=== PATIENT | male | born 1940 | race Caucasian/White ===

== ENCOUNTER 2018-05-15 09:54 | Emergency (ER) | payer MEDICARE, SELFPAY ==
[2018-05-15 10:00] VITALS: BP 169/78; PULSE 80; RESP 18; TEMP 36.7; O2SAT 99
--- NOTE | 2018-05-15 10:12 | ED.ABDPAIN ---
HPI - Abdominal Pain General Chief Complaint: Abdominal Pain Stated Complaint: hasnt had a bowel movement Time Seen by Provider: 05/15/18 10:03 Source: patient Mode of arrival: ambulatory Limitations: no limitations History of Present Illness HPI narrative: Patient is a 77-year-old male presents with abdominal pain and constipation ongoing for the last 3 days. He said he had a last bowel movement 3 days ago when he says it was normal. Since then he has had increased abdominal discomfort and bloating. He feels like he is has to have a bowel movement but can't. He typically takes a laxative which helps which it has not been helping. He has not had any nausea vomiting or fever. MD complaint: abdominal pain Onset (ago): day(s) (3) Severity: moderate Quality: fullness Migration to: no migration Relieving factors: nothing Exacerbating factors: nothing Related Data Home Medications Medication Instructions Recorded Confirmed No Known Home Medications 05/15/18 05/15/18 Allergies Allergy/AdvReac Type Severity Reaction Status Date / Time No Known Drug Allergies Allergy Verified 05/15/18 10:15 Review of Systems Review of Systems GENERAL: Denies chills, fatigue, malaise, fever, sweats, travel HEENT: Denies sinus pain, ear pain, sore throat, difficulty swallowing, neck pain RESPIRATORY: Denies dyspnea, cough, wheezing, hemoptysis, sputum. CARDIOVASCULAR: Denies chest pain, palpitations, orthopnea, edema GASTROINTESTINAL: See HPI : Denies dysuria, frequency, incontinence, hematuria, urinary retention, flank pain. MUSCULOSKELETAL: Denies weakness, joint pain, or bony pain SKIN: No rash, no erythema, no pruritus NEUROLOGIC: Denies weakness, dizziness, headache, numbness, change in speech, confusion PSYCHIATRIC: No concerning psychosocial issues. 12 point review of systems is negative except for those stated above and HPI PFSH Medical History Chronic pain syndrome (Chronic Unknown) Shoulder pain, left (Chronic Unknown) Social History Smoking Status: Never smoker Social History Smoking Status: Never smoker Exam Initial Vital Signs Initial Vital Signs: Vital Signs Temperature 98.1 F 05/15/18 10:00 Pulse Rate 80 05/15/18 10:00 Respiratory Rate 18 05/15/18 10:00 Blood Pressure 169/78 H 05/15/18 10:00 Pulse Oximetry 99 05/15/18 10:00 GENERAL: Alert well-appearing elderly male no acute distress HEENT: Head atraumatic,EOMI, pupils reactive, CARDIOVASCULAR: Regular rate and rhythm without murmurs, rubs or gallops. RESPIRATORY: Breath sounds equal bilaterally, no wheezes rales or rhonchi. ABDOMEN: Soft tenderness lower abdomen right greater than the last no guarding no rebound bowel sounds mode : No CVA tenderness EXTREMITIES: Normal range of motion, no clubbing or edema. Neurovascularly intact NEUROLOGICAL: Alert and oriented x4.Normal gait and speech. Cranial nerves II through XII grossly intact. SKIN: Warm, dry, no laceration, no petechiae, no rashes or lesions. Course Orders Ordered: ED Orders 05/15/18 10:13 CT abdomen pelvis w con Stat 05/15/18 10:25 Complete Blood Count AUTO DIFF Stat Comprehensive Metabolic Panel Stat Lipase Stat Discontinued Medications Sodium Chloride (Normal Saline 0.9%) 1,000 mls @ 1,000 mls/hr IV CONT OPAL Last Infusion: 05/15/18 12:06 Dose: 999 mls/hr Admin: 05/15/18 11:06 Dose: 1,000 mls/hr Vital Signs - 8 hr 05/15/18 10:00 05/15/18 11:26 Temperature 98.1 F Pulse Rate 80 58 L Respiratory Rate 18 18 Blood Pressure 169/78 H Blood Pressure [Left Arm] 153/71 H Pulse Oximetry 99 96 MDM - Abdominal Pain Lab Data Attestation: I reviewed the patient's lab results. Result diagrams: 05/15/18 10:25 05/15/18 10:25 Lab Results 05/15/18 05/15/18 Range/Units 10:25 10:25 WBC 5.5 (4.5-11.0) X10^3/uL RBC 4.90 (4.5-5.9) X10^6/uL Hgb 15.2 (13.5-17.5) g/dL Hct 45.6 (41-53) % MCV 93.2 (80-100) fL MCH 31.1 (26-34) PG MCHC 33.4 (30-36) % RDW 14.3 (11.6-14.8) % Plt Count 218 (150-400) X10^3/uL Neut % (Auto) 53.1 (50-75) % Lymph % (Auto) 33.4 (25-40) % [place] % (Auto) 10.2 (3-14) % Eos % (Auto) 2.5 (2-4) % Baso % (Auto) 0.8 (0-2) % Neut # (Auto) 2900 (2336-9269) /uL Lymph # (Auto) 1800 (3979-1309) /uL [place] # (Auto) 600 (0-900) /uL Eos # (Auto) 100 (0-450) /uL Baso # (Auto) 0 (0-100) /uL Sodium 139 (137-145) mmol/L Potassium 3.9 (3.4-5.1) mmol/L Chloride 104 (98-107) mmol/L Carbon Dioxide 25 (22-32) mmol/L BUN 17 (9-20) mg/dL Creatinine 0.80 (0.66-1.25) mg/dL Estimated GFR > 60.0 (>60) mL/min BUN/Creatinine Ratio 21.3 (6-22) Glucose 108 (80-110) mg/dL Calcium 9.1 (8.4-10.2) mg/dL Total Bilirubin 0.8 (0.2-1.3) mg/dL AST 29 (17-59) IU/L ALT 27 (21-72) IU/L Alkaline Phosphatase 68 (38-126) U/L Total Protein 6.9 (6.3-8.2) g/dL Albumin 4.2 (3.5-5.0) g/dL Globulin 2.7 (1.7-4.1) g/dL Albumin/Globulin Ratio 1.6 (1.0-2.8) Lipase 99 (23-300) U/L Point of care testing: Urine Dip Bedside Urine Glucose Negative Bedside Urine Bilirubin - Negative Bedside Urine Ketone - Negative Urine Specific [place] 1.015 Bedside Urine Occult Blood - Negative Bedside Urine pH 6.5 Bedside Urine Protein - Negative Bedside Urine Urobilinogen - Negative Bedside Urine Nitrite - Negative Bedside Urine Leukocytes - Negative Esterase Imaging Data CT scan - abdomen: Radiologist's impression: PROCEDURE: CT ABDOMEN PELVIS W CON INDICATIONS: abdominal pain right side, constipation TECHNIQUE: After the administration of intravenous contrast, 5 mm thick sections acquired from the diaphragm to the symphysis. 5 mm coronal and sagittal reformats were acquired. For radiation dose reduction, the following was used: automated exposure control, adjustment of mA and/or kV according to patient size. COMPARISON: None. FINDINGS: Image quality: Excellent. ABDOMEN: Lung bases: Lung bases are clear. Heart size is normal. Solid organs: Liver is normal in size and enhancement. Calcification within the right hepatic dome is present. Lateral segment left hepatic lobe cyst is present measuring 17 mm. Gallbladder is within normal limits. Biliary system is non dilated. Pancreas enhances normally. Spleen is normal in size and enhancement. No adrenal nodules. Kidneys demonstrate normal size and enhancement, without hydronephrosis. Peritoneum and bowel: The bowel is suboptimally evaluated secondary to lack of oral contrast. The stomach is within normal limits. The small bowel is nondistended. Within the right lower quadrant, there is a region of ill-defined multinodularity and mesenteric fat stranding, spanning roughly 40 mm. The lateral aspect of this region of multinodularity is in direct contact with a loop of adjacent small bowel (series 2 image 51). There is no discrete abscess normalities. The majority of the appendix appears normally. However, there is a rounded, a 13 mm diameter calcification within or adjacent to the appendiceal tip. No fat stranding surrounds the appendix, however. The colon is nondistended. Diverticulosis of the descending and sigmoid colon is present without evidence of acute superimposed diverticulitis. No free fluid or air. Nodes and vessels: No retroperitoneal or mesenteric adenopathy by size criteria. Aorta and inferior vena cava are normal in size. Miscellaneous: No ventral hernias. PELVIS: Genitourinary: There is a 44 mm diverticulum of the right posterolateral urinary bladder. There are multiple regions of nodular urinary bladder wall thickening posteriorly, as well as posterolaterally on the left than on the right. The most prominent region of urinary bladder wall thickening involves the right lateral urinary bladder wall, measuring roughly 9 mm in thickness. The prostate is enlarged. Miscellaneous: No inguinal hernias or adenopathy. Stimulator device within the subcutaneous fat of the left posterior abdomen is present. Bones: No suspicious bony lesions. Moderate leftward curvature of the lumbar spine. No vertebral body compression fractures. IMPRESSION: 1. Presumably inflammatory, or infectious process within the right lower quadrant as described above, contiguous with small bowel, which may represent small bowel diverticulitis, infection, or inflammation (e.g., Crohn's disease sequelae with associated sinus tract formation and surrounding inflammatory sequelae could produce this appearance in the appropriate clinical setting). This is the likely cause of the patient's right-sided pain. Followup imaging with intravenous and oral contrast may be helpful for further assessment, and to exclude the less likely possibility of underlying neoplasm, such as carcinoid, which can have a similar appearance. 2. Right lower quadrant calcification within or adjacent to the appendix. Differential considerations include an appendicolith versus a calcified mesenteric lymph node adjacent to the appendix. There is no evidence of surrounding inflammation to indicate acute appendicitis. 3. Multifocal regions of urinary bladder wall thickening, possibly neoplastic. Cystoscopy is recommended for further assessment. Dictated by: Darling Flannery M.D. on 05/15/2018 at 11:16 Approved by: Darling Flannery M.D. on 05/15/2018 at 11:28 [facility] Narrative Medical decision making narrative: I discussed test results including CT and blood work with patient. He is aware of multiple areas on the bladder and recommend cystoscopy in close PCP follow-up. At this time the CT does reveal inflammation in the right lower quadrant without signs of appendicitis. Patient's pain is significantly improved after some mild Toradol. Discharge Plan Departure Patient Disposition: Home Clinical Impression: Colitis Discharge Date/Time: 05/15/18 12:10 Interventions: ED Discharge Assessment Last Done: 05/15/18 12:07 Instructions: DI for Colitis Activity Restrictions/Additional Instructions: *You have been diagnosed with colitis *What to do: At this time the of inflammation in you're: On the right side. The appendix appears normal. At this time no indication for antibiotic There are some areas in bladder which require further evaluation with a urologist please talk to your primary care provider about this. *Continue to take medications as directed Ibuprofen 600 mg twice daily *Follow up with your primary care provider in 2-3 days *Return to ER if you should have increasing pain, no bowel movement, persistent vomiting or fever or any new, worsening or concerning symptoms Prescriptions: No Action No Known Home Medications RF: 0 Referrals: Romero Gregory MD [Physician] - Joshua Vincent MD [Primary Care Provider] -
--- NOTE | 2018-05-15 10:17 | ED_ITS ---
HPI - Abdominal Pain General Chief Complaint: Abdominal Pain Stated Complaint: hasnt had a bowel movement Time Seen by Provider: 05/15/18 10:03 Source: patient Mode of arrival: ambulatory Limitations: no limitations History of Present Illness HPI narrative: Patient is a 77-year-old male presents with abdominal pain and constipation ongoing for the last 3 days. He said he had a last bowel movement 3 days ago when he says it was normal. Since then he has had increased abdominal discomfort and bloating. He feels like he is has to have a bowel movement but can't. He typically takes a laxative which helps which it has not been helping. He has not had any nausea vomiting or fever. MD complaint: abdominal pain Onset (ago): day(s) (3) Severity: moderate Quality: fullness Migration to: no migration Relieving factors: nothing Exacerbating factors: nothing Related Data Home Medications Medication Instructions Recorded Confirmed No Known Home Medications 05/15/18 05/15/18 Allergies Allergy/AdvReac Type Severity Reaction Status Date / Time No Known Drug Allergies Allergy Verified 05/15/18 10:15 Review of Systems Review of Systems GENERAL: Denies chills, fatigue, malaise, fever, sweats, travel HEENT: Denies sinus pain, ear pain, sore throat, difficulty swallowing, neck pain RESPIRATORY: Denies dyspnea, cough, wheezing, hemoptysis, sputum. CARDIOVASCULAR: Denies chest pain, palpitations, orthopnea, edema GASTROINTESTINAL: See HPI : Denies dysuria, frequency, incontinence, hematuria, urinary retention, flank pain. MUSCULOSKELETAL: Denies weakness, joint pain, or bony pain SKIN: No rash, no erythema, no pruritus NEUROLOGIC: Denies weakness, dizziness, headache, numbness, change in speech, confusion PSYCHIATRIC: No concerning psychosocial issues. 12 point review of systems is negative except for those stated above and HPI PFSH Medical History Chronic pain syndrome (Chronic Unknown) Shoulder pain, left (Chronic Unknown) Social History Smoking Status: Never smoker Social History Smoking Status: Never smoker Exam Initial Vital Signs Initial Vital Signs: Vital Signs Temperature 98.1 F 05/15/18 10:00 Pulse Rate 80 05/15/18 10:00 Respiratory Rate 18 05/15/18 10:00 Blood Pressure 169/78 H 05/15/18 10:00 Pulse Oximetry 99 05/15/18 10:00 GENERAL: Alert well-appearing elderly male no acute distress HEENT: Head atraumatic,EOMI, pupils reactive, CARDIOVASCULAR: Regular rate and rhythm without murmurs, rubs or gallops. RESPIRATORY: Breath sounds equal bilaterally, no wheezes rales or rhonchi. ABDOMEN: Soft tenderness lower abdomen right greater than the last no guarding no rebound bowel sounds mode : No CVA tenderness EXTREMITIES: Normal range of motion, no clubbing or edema. Neurovascularly intact NEUROLOGICAL: Alert and oriented x4.Normal gait and speech. Cranial nerves II through XII grossly intact. SKIN: Warm, dry, no laceration, no petechiae, no rashes or lesions. Course Orders Ordered: ED Orders 05/15/18 10:13 CT abdomen pelvis w con Stat 05/15/18 10:25 Complete Blood Count AUTO DIFF Stat Comprehensive Metabolic Panel Stat Lipase Stat Discontinued Medications Sodium Chloride (Normal Saline 0.9%) 1,000 mls @ 1,000 mls/hr IV CONT OPAL Last Infusion: 05/15/18 12:06 Dose: 999 mls/hr Admin: 05/15/18 11:06 Dose: 1,000 mls/hr Vital Signs - 8 hr 05/15/18 10:00 05/15/18 11:26 Temperature 98.1 F Pulse Rate 80 58 L Respiratory Rate 18 18 Blood Pressure 169/78 H Blood Pressure [Left Arm] 153/71 H Pulse Oximetry 99 96 MDM - Abdominal Pain Lab Data Attestation: I reviewed the patient's lab results. Result diagrams: 05/15/18 10:25 05/15/18 10:25 Lab Results 05/15/18 05/15/18 Range/Units 10:25 10:25 WBC 5.5 (4.5-11.0) X10^3/uL RBC 4.90 (4.5-5.9) X10^6/uL Hgb 15.2 (13.5-17.5) g/dL Hct 45.6 (41-53) % MCV 93.2 (80-100) fL MCH 31.1 (26-34) PG MCHC 33.4 (30-36) % RDW 14.3 (11.6-14.8) % Plt Count 218 (150-400) X10^3/uL Neut % (Auto) 53.1 (50-75) % Lymph % (Auto) 33.4 (25-40) % [place] % (Auto) 10.2 (3-14) % Eos % (Auto) 2.5 (2-4) % Baso % (Auto) 0.8 (0-2) % Neut # (Auto) 2900 (5416-4706) /uL Lymph # (Auto) 1800 (9934-4763) /uL [place] # (Auto) 600 (0-900) /uL Eos # (Auto) 100 (0-450) /uL Baso # (Auto) 0 (0-100) /uL Sodium 139 (137-145) mmol/L Potassium 3.9 (3.4-5.1) mmol/L Chloride 104 (98-107) mmol/L Carbon Dioxide 25 (22-32) mmol/L BUN 17 (9-20) mg/dL Creatinine 0.80 (0.66-1.25) mg/dL Estimated GFR > 60.0 (>60) mL/min BUN/Creatinine Ratio 21.3 (6-22) Glucose 108 (80-110) mg/dL Calcium 9.1 (8.4-10.2) mg/dL Total Bilirubin 0.8 (0.2-1.3) mg/dL AST 29 (17-59) IU/L ALT 27 (21-72) IU/L Alkaline Phosphatase 68 (38-126) U/L Total Protein 6.9 (6.3-8.2) g/dL Albumin 4.2 (3.5-5.0) g/dL Globulin 2.7 (1.7-4.1) g/dL Albumin/Globulin Ratio 1.6 (1.0-2.8) Lipase 99 (23-300) U/L Point of care testing: Urine Dip Bedside Urine Glucose Negative Bedside Urine Bilirubin - Negative Bedside Urine Ketone - Negative Urine Specific [place] 1.015 Bedside Urine Occult Blood - Negative Bedside Urine pH 6.5 Bedside Urine Protein - Negative Bedside Urine Urobilinogen - Negative Bedside Urine Nitrite - Negative Bedside Urine Leukocytes - Negative Esterase Imaging Data CT scan - abdomen: Radiologist's impression: PROCEDURE: CT ABDOMEN PELVIS W CON INDICATIONS: abdominal pain right side, constipation TECHNIQUE: After the administration of intravenous contrast, 5 mm thick sections acquired from the diaphragm to the symphysis. 5 mm coronal and sagittal reformats were acquired. For radiation dose reduction, the following was used: automated exposure control, adjustment of mA and/or kV according to patient size. COMPARISON: None. FINDINGS: Image quality: Excellent. ABDOMEN: Lung bases: Lung bases are clear. Heart size is normal. Solid organs: Liver is normal in size and enhancement. Calcification within the right hepatic dome is present. Lateral segment left hepatic lobe cyst is present measuring 17 mm. Gallbladder is within normal limits. Biliary system is non dilated. Pancreas enhances normally. Spleen is normal in size and enhancement. No adrenal nodules. Kidneys demonstrate normal size and enhancement, without hydronephrosis. Peritoneum and bowel: The bowel is suboptimally evaluated secondary to lack of oral contrast. The stomach is within normal limits. The small bowel is nondistended. Within the right lower quadrant, there is a region of ill-defined multinodularity and mesenteric fat stranding, spanning roughly 40 mm. The lateral aspect of this region of multinodularity is in direct contact with a loop of adjacent small bowel ( series 2 image 51). There is no discrete abscess normalities. The majority of the appendix appears normally. However, there is a rounded, a 13 mm diameter calcification within or adjacent to the appendiceal tip. No fat stranding surrounds the appendix, however. The colon is nondistended. Diverticulosis of the descending and sigmoid colon is present without evidence of acute superimposed diverticulitis. No free fluid or air. Nodes and vessels: No retroperitoneal or mesenteric adenopathy by size criteria. Aorta and inferior vena cava are normal in size. Miscellaneous: No ventral hernias. PELVIS: Genitourinary: There is a 44 mm diverticulum of the right posterolateral urinary bladder. There are multiple regions of nodular urinary bladder wall thickening posteriorly, as well as posterolaterally on the left than on the right. The most prominent region of urinary bladder wall thickening involves the right lateral urinary bladder wall , measuring roughly 9 mm in thickness. The prostate is enlarged. Miscellaneous: No inguinal hernias or adenopathy. Stimulator device within the subcutaneous fat of the left posterior abdomen is present. Bones: No suspicious bony lesions. Moderate leftward curvature of the lumbar spine. No vertebral body compression fractures. IMPRESSION: 1. Presumably inflammatory, or infectious process within the right lower quadrant as described above, contiguous with small bowel, which may represent small bowel diverticulitis, infection, or inflammation (e.g., Crohn's disease sequelae with associated sinus tract formation and surrounding inflammatory sequelae could produce this appearance in the appropriate clinical setting). This is the likely cause of the patient's right-sided pain. Followup imaging with intravenous and oral contrast may be helpful for further assessment, and to exclude the less likely possibility of underlying neoplasm, such as carcinoid, which can have a similar appearance. 2. Right lower quadrant calcification within or adjacent to the appendix. Differential considerations include an appendicolith versus a calcified mesenteric lymph node adjacent to the appendix. There is no evidence of surrounding inflammation to indicate acute appendicitis. 3. Multifocal regions of urinary bladder wall thickening, possibly neoplastic. Cystoscopy is recommended for further assessment. Dictated by: Darling Flannery M.D. on 05/15/2018 at 11:16 Approved by: Darling Flannery M.D. on 05/15/2018 at 11:28 [facility] Narrative Medical decision making narrative: I discussed test results including CT and blood work with patient. He is aware of multiple areas on the bladder and recommend cystoscopy in close PCP follow-up. At this time the CT does reveal inflammation in the right lower quadrant without signs of appendicitis. Patient 's pain is significantly improved after some mild Toradol. Discharge Plan Departure Patient Disposition: Home Clinical Impression: Colitis Discharge Date/Time: 05/15/18 12:10 Interventions: ED Discharge Assessment Last Done: 05/15/18 12:07 Instructions: DI for Colitis Activity Restrictions/Additional Instructions: *You have been diagnosed with colitis *What to do: At this time the of inflammation in you're: On the right side. The appendix appears normal. At this time no indication for antibiotic There are some areas in bladder which require further evaluation with a urologist please talk to your primary care provider about this. *Continue to take medications as directed Ibuprofen 600 mg twice daily *Follow up with your primary care provider in 2-3 days *Return to ER if you should have increasing pain, no bowel movement, persistent vomiting or fever or any new, worsening or concerning symptoms Prescriptions: No Action No Known Home Medications RF: 0 Referrals: Romero Gregory MD [Physician] - Joshua Vincent MD [Primary Care Provider] -
[2018-05-15 10:38] LABS: Add Manual Diff / Slide Review NO; Basophils Absolute Auto 0 /uL (0-100); Basophils Percent Auto 0.8 % (0-2); Eosinophils Absolute Auto 100 /uL (0-450); Eosinophils Percent Auto 2.5 % (2-4); Hematocrit 45.6 % (41-53); Hemoglobin 15.2 g/dL (13.5-17.5); Lymphocytes Absolute Auto 1800 /uL (1100-4500); Lymphocytes Percent Auto 33.4 % (25-40); Mean Corpuscular HGB Conc 33.4 % (30-36); Mean Corpuscular Hemoglobin 31.1 PG (26-34); Mean Corpuscular Volume 93.2 fL (80-100); Monocytes Absolute Auto 600 /uL (0-900); Monocytes Percent Auto 10.2 % (3-14); Neutrophils Absolute Auto 2900 /uL (1500-7000); Neutrophils Percent Auto 53.1 % (50-75); Platelet Count 218 X10^3/uL (150-400); Red Cell Distribution Width 14.3 % (11.6-14.8); White Blood Cell Count 5.5 X10^3/uL (4.5-11.0)
[2018-05-15 10:48] LABS: Alanine Aminotransferase 27 IU/L (21-72); Albumin 4.2 g/dL (3.5-5.0); Albumin Globulin Ratio 1.6 (1.0-2.8); Alkaline Phosphatase 68 U/L (38-126); Aspartate Aminotransferase 29 IU/L (17-59); BUN Creatinine Ratio 21.3 (6-22); Bilirubin Total 0.8 mg/dL (0.2-1.3); Blood Urea Nitrogen 17 mg/dL (9-20); Calcium 9.1 mg/dL (8.4-10.2); Carbon Dioxide 25 mmol/L (22-32); Chloride 104 mmol/L (98-107); Estimated Glomerular Filt Rate > 60.0 mL/min (>60); Globulin 2.7 g/dL (1.7-4.1); Glucose 108 mg/dL (80-110); Lipase 99 U/L (23-300); Potassium 3.9 mmol/L (3.4-5.1); Sodium 139 mmol/L (137-145); Total Protein 6.9 g/dL (6.3-8.2)
[2018-05-15 10:50] LABS: HEMOLYSIS 54 (0-50)
[2018-05-15] MEDS: SODIUM CHLORIDE 0.9% 1,000 ML 1000 ML IV (11:06)
[2018-05-15 11:26] VITALS: BP 153/71; PULSE 58; RESP 18; O2SAT 96
== END 2018-05-15 12:10 | disposition home or self-care (01) ==
PROVIDERS: Emergency Provider Emergency Medicine; PCP Family Medicine
DX: K52.9 Noninfective gastroenteritis and colitis, unspecified (principal)
CPT/HCPCS: 36591; 74177; 80053; 81003; 83690; 85025; 96360; 99283; 99285; Q9967

== ENCOUNTER → 2018-06-21 16:33 | Outpatient (CLI) | payer MEDICARE, SELFPAY ==
[2018-06-21 18:01] LABS: Add Manual Diff / Slide Review NO; Basophils Absolute Auto 0 /uL (0-100); Basophils Percent Auto 0.5 % (0-2); Eosinophils Absolute Auto 100 /uL (0-450); Eosinophils Percent Auto 1.7 % (2-4); Hematocrit 47.7 % (41-53); Hemoglobin 15.9 g/dL (13.5-17.5); Lymphocytes Absolute Auto 2300 /uL (1100-4500); Lymphocytes Percent Auto 34.1 % (25-40); Mean Corpuscular HGB Conc 33.2 % (30-36); Mean Corpuscular Hemoglobin 30.9 PG (26-34); Mean Corpuscular Volume 92.9 fL (80-100); Monocytes Absolute Auto 700 /uL (0-900); Monocytes Percent Auto 10.8 % (3-14); Neutrophils Absolute Auto 3600 /uL (1500-7000); Neutrophils Percent Auto 52.9 % (50-75); Platelet Count 214 X10^3/uL (150-400); Red Blood Cell Count 5.14 X10^6/uL (4.5-5.9); Red Cell Distribution Width 14.3 % (11.6-14.8); White Blood Cell Count 6.9 X10^3/uL (4.5-11.0)
[2018-06-21 18:55] LABS: Cholesterol 184 mg/dL (140-199); HDL Cholesterol 55 mg/dL (40-60); LDL Cholesterol Calculated 110 mg/dL (<100); Triglycerides 97 mg/dL (35-150)
[2018-06-21 19:10] LABS: Procalcitonin < 0.05 ng/mL (<0.5); Vitamin D 25 Hydroxy (D3) 18.4 ng/mL (30.0-100.0)
[2018-06-22 07:37] LABS: Blood Urea Nitrogen 18 mg/dL (9-20); Calcium 9.8 mg/dL (8.4-10.2); Carbon Dioxide 24 mmol/L (22-32); Chloride 104 mmol/L (98-107); Estimated Glomerular Filt Rate > 60.0 mL/min (>60); Glucose 96 mg/dL (80-110); HEMOLYSIS 21 (0-50); Potassium 4.7 mmol/L (3.4-5.1); Sodium 141 mmol/L (137-145)
== END ==
PROVIDERS: PCP Family Medicine; Visit Provider Student in an Organized Health Care Education/Training Program
DX: E55.9 Vitamin D deficiency, unspecified (principal); Z13.220 Encounter for screening for lipoid disorders; R10.31 Right lower quadrant pain; N14.1 Nephropathy induced by other drugs, medicaments and biological substances; T50.8X5A Adverse effect of diagnostic agents, initial encounter; I26.99 Other pulmonary embolism without acute cor pulmonale
CPT/HCPCS: 36415; 80048; 80061; 82306; 84145; 85025

== ENCOUNTER → 2018-06-22 08:42 | Outpatient (CLI) | payer MEDICARE, SELFPAY ==
--- NOTE | 2018-06-22 09:41 | DI.CT.S_ITS ---
PROCEDURE: CT ABDOMEN PELVIS W CON INDICATIONS: right lower quad pain x 1 week TECHNIQUE: After the administration of oral and intravenous contrast, 5 mm thick sections acquired from the diaphragms to the symphysis. 5 mm thick coronal and sagittal reformats were performed. For radiation dose reduction, the following was used: automated exposure control, adjustment of mA and/or kV according to patient size. COMPARISON: [facility], CT, CT ABDOMEN PELVIS W CON, 05/15/2018, 10:59. FINDINGS: Image quality: Excellent. ABDOMEN: Lung bases: Lung bases are clear. Heart size is normal. Solid organs: Liver is normal in size and enhancement. Gallbladder is within normal limits. Biliary system is non-dilated. Pancreas enhances normally. Spleen is normal in size and enhancement. No adrenal nodules. Kidneys are normal in size and enhancement, without hydronephrosis. Peritoneum and bowel: Stomach, small bowel, and colon loops are normal in caliber and wall thickness. No free fluid or air. The periappendiceal right lower quadrant calcification is unchanged. The appendix is normal. Previously seen nodularity within the right lower quadrant is less apparent. Nodes and vessels: No retroperitoneal or mesenteric adenopathy. Aorta and inferior vena cava are normal in caliber. Miscellaneous: No ventral hernias. PELVIS: Genitourinary: Right posterior urinary bladder diverticulum is present, as before. There is nodular thickening of the right posterior bladder, as before. Prostate enlargement is present. Miscellaneous: No inguinal hernias or adenopathy. Bones: No suspicious bony lesions moderate leftward curvature of the lumbar spine is present, as before. Right femoral head buttressing is present. Mild chronic L1 compression fracture is present, as before. No acute vertebral body compression fractures. IMPRESSION: 1. Resolving right lower quadrant inflammatory process. 2. Normal appendix. No change in periappendiceal calcification. 3. No change in mural nodularity involving the right posterior urinary bladder, adjacent to the diverticulum. This could be further assessed with cystoscopy, if clinically indicated. 4. Prostate enlargement; recommend correlation with PSA values. 5. Findings suggestive of right femoral-acetabular impingement. Dictated by: Darling Flannery M.D. on 06/22/2018 at 9:47 Approved by: Darling Flannery M.D. on 06/22/2018 at 9:56
== END ==
PROVIDERS: PCP Family Medicine; Visit Provider Student in an Organized Health Care Education/Training Program
DX: R10.31 Right lower quadrant pain (principal); N32.3 Diverticulum of bladder; N40.0 Benign prostatic hyperplasia without lower urinary tract symptoms
CPT/HCPCS: 74177; Q9967

== ENCOUNTER 2018-08-07 08:24 | Day surgery (SDC) | payer MEDICARE, SELFPAY ==
[2018-07-31 11:55] VITALS: BMI 25.4
[2018-08-07] VITALS (16 sets, daily range): BP systolic 110–168; BP diastolic 61–87; PULSE 66–98; RESP 15–24; TEMP 36.5–37; O2SAT 94–97; BMI 24.7
--- NOTE | 2018-08-07 | PATH_ITS ---
[facility] Accession Number: [id number] . 01 Material submitted: . PART A: body - NERVE PART B: body - HERNIA SAC . 02 Diagnosis: A. Specimen Designated Nerve: Segment of peripheral nerve with no significant pathologic change. . B. Specimen Designated Hernia Sac, Site Not Designated: Tissue consistent with hernia sac, negative for atypia. MRV/08/09/2018 . 02 Electronically signed: . Darren Fernández MD, Pathologist NPI- [id number] . 01 Gross description: . (A) Received in formalin, labeled nerve, is a xiao-yellow rubbery nerve segment (length-4.3 cm, diameter-0.2 cm). Submitted intact in cassette A1. The segment will be serially sectioned at embedding. (B) Received in formalin, labeled hernia sac, are multiple pieces of mendez-pink membranous and focally fibrous and fatty tissue (9.5 x 4.3 x 1.1 cm in aggregate). Rug Hooker tissue submitted in cassette B1. ([id number]) /MRV . 02 Pathologist provided ICD-10: K40.90 . 02 CPT . 734942, [id number] Performed at: 01 [facility] [address], [place], [place] [id number] MD Renny Chaidez MD Phone: [phone] Performed at: 02 [facility] [address] [place], [place] [id number] MD Fidelia Damon MD Phone: [phone]
[2018-08-07] MEDS: LACTATED RINGERS 1,000 ML 42 ML IV ×2 (08:58→11:00)
--- NOTE | 2018-08-07 09:23 | PM.PREOP ---
Pre-operative Note Interval Note History & Physical reviewed/Exam performed by Physician: Yes Changes to H&P: No
--- NOTE | 2018-08-07 09:33 | SUR.OPER ---
Supine on padded OR bed, head on pillow, arms secured on padded arm boards at <90 degrees abduction, legs uncrossed, safety belt at thigh, tape over blanket over lower legs.
[2018-08-07] MEDS: CEFAZOLIN 2 GM/100 ML FROZ.PIGGY IV (09:45)
[2018-08-07] MEDS: BUPIVACAINE 0.25% W/ EPI (PF) 10 ML VIAL 20 ML INJ (10:18)
--- NOTE | 2018-08-07 11:59 | PM.OP.1 ---
Operative Date/Time/Diagnoses Date of procedure: 08/07/18 Time of procedure: 11:59 Pre-op diagnosis: Right Inguinal Hernia Post-op diagnosis: same Procedure & Clinicians Procedure: Right Inguinal Hernia Repair Same procedure as scheduled: Yes Indications: 77yo M with enlarging and increasingly painful R inguinal hernia. All R/B/A discussed and pt wishes to proceed. Surgeon: Qi Tabler Click Yes if Unassisted: Yes Anesthesia Type: General Operative Notes Findings: Large right indirect inguinal hernia with omentum herniated next to hernia sac. Closure Type: primary Specimen(s): other (1. nerve 2. hernia sac) Estimated Blood Loss (mL): 10 Procedure in detail: Patient was taken to the operating room and placed on the operating table in supine position. The right groin was prepped and draped in the usual sterile fashion and a timeout performed with the team present. The pubic symphysis and anterior superior iliac spine were then marked. Local anesthesia was used to infiltrate the line of planned incision as well as the area of the ilioinguinal nerve. A 10 blade scalpel was used to make an 8 cm long incision along the length of the inguinal ligament. Electrocautery was used to go down to the level of the external oblique. A 15 blade scalpel used to make a small incision in the aponeurosis and then Metzenbaum scissors used to open up the external oblique aponeurosis widely. The ilioinguinal nerve was identified and carefully excised so it was entirely removed from the field. The posterior aspect of the external oblique aponeurosis was cleaned superiorly and inferiorly. The shelving edge of the inguinal ligament was identified. The spermatic cord and its surrounding tissues were identified and encircled with a brittaney drain. This involved a tedious dissection due to the chronic nature of the adhesions and the large volume tissue involved. The cord structures were fairly stuck to the hernia sac itself. A large piece of omentum is also involved and adherent to the cord as we as the sac itself; the omentum was herniated down the canal next to the sac. Attachments to cremaster were muscle were taken down using electrocautery and blunt dissection. Once , the hernia sac was then opened noting a large piece of intra-abdominal fat stuck to the inside wall. This was carefully taken down to reduce the contents. Using 2-0 silk suture the hernia sac was ligated in a high fashion. This was then transected and passed off the field. There was some weakness in the floor of the inguinal canal, but no significant direct hernia component was identified. The area was irrigated and dried. Using an Atrium Prolite mesh cut to size the floor of the inguinal canal was recreated. The mesh was sewn into place with 0-Ethibond in an interrupted fashion starting at the pubic tubercle. The internal ring was then recreated by sewing the flaps of the keyhole mesh together. A finger was noted to easily pass through the ring along with the spermatic cord contents. The was irrigated again. Hemostasis was obtained using electrocautery. The mesh was noted to lie without redundancy or tension in satisfactory position.The external oblique aponeurosis was then reapproximated using 3-0 vicryl in a running fashion. This also recreated the external ring. Beena's fascia was reapproximated using 2-0 vicryl in a running fashion. The skin was reapproximated using 4-0 monocryl in a running subcuticular fashion. The remainder of the local anesthesia was used over the incision site and at the level of the ilioinguinal nerve. The area was cleaned and dried. Skin glue was placed over the incision. All counts were correct at the end of the procedure. The patient was awakened and taken to the PACU in stable condition. Complications: none Condition: stable Disposition: PACU
[2018-08-07] MEDS: KETOROLAC 30 MG/ML VIAL IV (12:16)
[2018-08-07] MEDS: OXYCODONE/ACETAMINOPHEN 5/325 TABLET 1 TAB PO (12:36)
--- NOTE | 2018-08-07 13:23 | SUR.PHASEII ---
6153 note: pt. assisted with dressing, when assisted up to stand, pt's left leg buckled under him. Able to get pt. back to EOB; second staff member (this author) at to assist pt. to stand, pt.'s stood and immediately left leg buckled under him (the pt.). Assisted pt. back to bed, laying supine. Surgeon notified of recent incident (without injury). Surgeon also informed that pt. has no one to stay with him once home the remainder of day/night. Surgeon gave verbal order to have PT come to evaluate the pt. Pt. will continue to stay in [facility] until pt. regains feeling/sensation to the LLE. Pt. acknowledged full understanding of what is going on and what is planned for his recovery. Ordering a meal for the pt. currently. Family member - sister well informed of change of D/C home at this time. Had pt. sister return home until further notice; [employer] phone # given to sister.
--- NOTE | 2018-08-07 13:31 | SUR.PHASEII ---
1315 - Pt. voided via urinal, clear yellow urine 150 cc. pt. has call light.
--- NOTE | 2018-08-07 13:32 | SUR.PHASEII ---
6452 Assumed care, patient denies pain, nausea, color pale. Meal ordered. Patient has his call light
--- NOTE | 2018-08-07 13:44 | SUR.PHASEII ---
1320 report given to Estefany VIDAL
--- NOTE | 2018-08-07 14:21 | SUR.PHASEII ---
resting comfortably, states his pain is 2/10, declines Rx. Still waiting for lunch; other foods offered and declined. Tolerating coffee well, declines any other needs.
--- NOTE | 2018-08-07 15:22 | SUR.PHASEII ---
Tolerating meal well, minimal pain which he is tolerating well. Incision sites continues to be CDI, voiding without difficulty. Able to lift right leg somewhat, but lacks strength and ability to bend/straighten to his satisfaction. Will continue to evaluate. Denies having any current needs. Resp unlabored, skin warm and dry, Continues to lie on the stretcher, fully clothed, and comfortable.
--- NOTE | 2018-08-07 15:42 | SUR.PHASEII ---
1540 Pt. being cared for by Svetlana Pozo RN and Zak Barrett RN
--- NOTE | 2018-08-07 20:11 | PC.NURSE ---
Addendum entered by Sheafli Almonte R.N. 08/07/18 23:49: 2300- Fall- Pt awoke, got up to go to bathroom, took a few steps, fell to my knees, and hit my head. Pt assisted with FWW up to chair, then back to bed, right leg with weakness. Pt denies pain. VSS. No objective or subjective data to head noted. Called MD immediately, orders are to monitor, and follow with discharge in AM. bed alarm on. Addendum entered by Shefali Almonte R.N. 08/07/18 21:53: 2000- Pt able to lift leg, wiggle toes, ankle pumps, CMS +. SBA to BRP. Original Note: 1605- Pt arrived to room 224 from PACU via bed. A/O x3, right leg remains numb, unable to move or lift, denies pain. Right inguinal hernia repair incision approximated well with dermabond with small bruising surrounding, CDI. BP/HR a bit elevated 159/73, 92. 96%RA, LS clear, BT+ denikes nausea. Urinal at bedside.
--- NOTE | 2018-08-08 00:58 | PC.NURSE ---
Shift note: Received pt from evening shift. Prior to start of NOC shift, this RN was 2nd on scene to pt post-fall. At time of shift change pt denied pain or deleterious from landing on right knee and hitting head on chair in the room. Upon assessment pt does have what appears to be a raised area on the occipital portion of head, pt denies that it's from the fall but cannot say definitively if it was there prior to the accident. Pt has no bruising, redness or edema to bilateral knees and denies pain. Bed alarm on for safety, pt declines to wear gown. Will continue to monitor closely for changes in mentation, stability, vital signs and other pertinent objective/subjective data.
[2018-08-08 05:49] VITALS: BP 153/60; PULSE 59; RESP 16; TEMP 36.8; O2SAT 98
[2018-08-08 08:51] VITALS: BP 134/58; PULSE 66; RESP 18; TEMP 36.9; O2SAT 95
--- NOTE | 2018-08-08 09:20 | PM.DS.1 ---
History of Present Illness Date Patient Seen: 08/08/18 Time Patient Seen: 09:20 Chief complaint: [id number] Narrative: 77yo M presented for electing R ing hernia repair. Longer than normal surgery given difficulty of repair and pt had RLE numbness after nerve block so was kept overnight. Walking well this AM and pain minimal. Discharge Providers Discharge Date: 08/08/18 Primary care physician: Romero Gregory MD Consults: 08/07/18 13:15 Consult to Physical Therapy Evaluate & Treat Comment: please eval in pre op area - rm 7 Physician Instructions: Evaluate and Treat 08/07/18 16:02 Consult to Discharge Planning Routine Comment: 08/08/18 08:15 Consult to Physical Therapy Evaluate & Treat Comment: Physician Instructions: Evaluate and Treat Discharge provider: Qi Moses MD Summary Discharge Diagnosis: S/P R Ing Hernia Repair RLE numbness Hospital Course: as per HPI Status at Discharge Cognitive/behavioral status at discharge: oriented Functional status at discharge: independent ambulation Overall status at discharge: patient is back to baseline Time Spent with Patient Less than 30 minutes Exam Vital Signs (past 8 hours): - 08/08/18 05:49 08/08/18 08:51 Temperature 98.2 F 98.4 F Pulse Rate 59 L 66 Respiratory Rate 16 18 Blood Pressure 153/60 H 134/58 L Pulse Oximetry 98 95 Oxygen Delivery Method Room Air Narrative Exam Narrative: AAO, NAD EOMI, MMM unlabored RA soft, nt, appropriate ttp, inc c/d/i MAEW Discharge Plan Discharge Plan Patient Disposition: Home Discharge Med Rec/Prescriptions Prescriptions: New ibuprofen 800 mg tablet 800 mg PO TID Qty: 30 RF: 1 oxycodone-acetaminophen [Percocet] 5-325 mg tablet 1 tab PO Q4-6H PRN (Reason: pain) Qty: 30 RF: 0 docusate sodium [Colace] 100 mg capsule 100 mg PO BID Qty: 60 RF: 2 Continued tamsulosin 0.4 mg Capsule 0.4 mg PO DAILY RF: 0 Follow up/Referrals: Romero Gregory MD [Primary Care Provider] - Qi Moses MD [Physician] - Discharge Orders: Discharge (Order); Ordered 08/08/18 Ordered By: Qi Moses Provider Discharge Instructions Diet: Diet as Tolerated Activity: as tolerated ambulate no lifting >20 lbs x6 weeks Cold/Heat Therapy: prn Skin/Wound/Dressing Care Dressing: shower as normal; no standing water Visit Report/Discharge Packet Instructions: DI for Hernia Repair, How to Prevent Falls, [facility]: Wound Care Stand Alone Forms: Surgery Discharge Discharge Data Primary Care Provider: Romero Gregory Attending Provider: Qi Moses VTE Deep Vein Thrombosis/Pulmonary Embolism Present on Admission: No
--- NOTE | 2018-08-08 09:41 | PC.NURSE ---
Day Shift- Pt A&OX4, able to make needs known using call light. Upon shift change, pt sitting up in chair with chair alarm. Pt stood with steady feet. No further numbness or tingling to RLE. Voiding qs. Right groin incision well approximated with small amount of purple bruising surrounding incision. Surgical glue intact.. PPP. CMS+. Rates 1/10 dull aching to incision area, no prn's at this time. Pt reported to DATABASE TECHNICIAN that his sister would be here to pick him up in 10 mins around 0910. Had previously instructed pt that Dr needed to round on him this morning and waiting for discharge order. Pt stated I'm leaving in 10 minutes no matter what, my sister is on her way. Called Dr. Moses's office at 0916 and update given to Dr. Moses, Discharge order rec'd. Reviewed discharge summary packet with pt. No voiced concerns, states has all belongings. Pt left unit via wheelchair at 0942 in no distress with exceptional student education teacher. Pt's sister waiting at ED entrance to drive pt home.
--- NOTE | 2018-08-08 12:59 | CM.DANOTE ---
Discharge Planning/Care Management DCP: assessment: case received and discussed in Team Rounds this morning. Pt is a 77 year old male who admitted yesterday for a planned surgery: Tabler: [facility]. Payer: Medicare and [employer]ARP Admission status: SDC/confirmed by UR MARCY Lawson RN Coordinator Ambreen reported that pt did have some difficulty post op but that he insisted on a d/c this morning to home. He had left for home by time the meeting had ended. Advanced directive, confirm from FAMILY Start: 08/07/18 17:04 Freq: Q24H Status: Discharge Protocol: Document 08/07/18 17:05 KMD (Rec: 08/07/18 17:05 KMD [id number]) Advance Directive, confirm on record Time 17:05 Person contacted Patient Copy received No CM Discharge Assessment Start: 08/08/18 12:59 Freq: Status: Active Protocol: Document 08/08/18 12:59 ITV (Rec: 08/08/18 12:59 ITV [id number]) Discharge Planning Assessment Advance Directives? No History Provided By Medical Record Household Members none Review Status In Process Next Review Type Continued Stay Review Pre-Anesthesia Assessment Start: 07/31/18 11:55 Freq: Status: Complete Protocol: Document 07/31/18 11:55 CAB (Rec: 07/31/18 12:02 CAB [id number]) Pre-Anesthesia Assessment PAC Comment Pt has a spinal cord stim implanted Patient Information Reviewed Via Chart Review Primary Care Provider Romero Gregory Seen Specialist in Last 12 Months Yes Specialist Seen Emergency General surgeon Urologist Primary Language Ken[place] Insurance Appraiser Required No Height 182.88 cm Weight 85.275 kg Body Mass Index (BMI) 25.4 Hx Anesthesia Reactions Pt has a spinal cord stim implanted Anesthesia Review Requested No Administrative Resources Associate No alcohol intake current alcohol intake frequency 0-2 drinks per day Smoking Status Never smoker Substance Use Type does not use Pain Present Pain Reported Comment RLQ History of Falling (Recent or History of No ) Patient is completely paralyzed or No completely immobile Mental Status Oriented to own ability Is patient on oxygen? No Does patient have BAKER/SOB No Hx Sleep Apnea No Currently Taking a Beta Duane No Hx Chest Pain No Hx SOB No Hx Syncope or Dizziness No Anti-Coagulant Therapy No Has a Outside Machinist Apprentice No Cardiac Testing No Hx Pacemaker/ICD No Pacemaker Rep Required? No Cardiac Clearance Received Not Applicable Urinary Catheter Present No Hx Urinary Self Catheterization No Diabetes No Lives With none Patient Discharge Plan Description Return Home Advance Directives? Yes
== END 2018-08-08 09:42 | disposition home or self-care (01) ==
LOC: OR 09:26 → AC 16:57
PROVIDERS: PCP Student in an Organized Health Care Education/Training Program; Visit Provider Surgery
PROC: (CPT 49505; principal; 2018-08-07 09:45)
DX: K40.90 Unilateral inguinal hernia, without obstruction or gangrene, not specified as recurrent (principal); G89.4 Chronic pain syndrome
CPT/HCPCS: 49505; 88302; 94762; C1781; J0690; J1100; J1885; J2405; J2704; J3010

== ENCOUNTER → 2020-06-29 13:33 | Outpatient (CLI) | payer MEDICARE, SELFPAY ==
[2018-08-07 17:02] VITALS: BMI 24.7
[2020-06-29] MEDS: COVID-19 VACC, Ad26(JANSSEN)/PF 0.5 ML IM (13:54)
== END ==
PROVIDERS: PCP Student in an Organized Health Care Education/Training Program; Visit Provider Internal Medicine
DX: Z23 Encounter for immunization (principal)
CPT/HCPCS: 0031A; 91303

== ENCOUNTER → 2021-09-27 14:13 | Outpatient (CLI) | payer MEDICARE, SELFPAY ==
[2018-08-07 17:02] VITALS: BMI 24.7
--- NOTE | 2021-09-27 14:15 | DI.RAD.S_ITS ---
PROCEDURE: XR SHOULDER RT MIN 2V INDICATIONS: right shoulder pain TECHNIQUE: 3 views of the shoulder were acquired. COMPARISON: None. FINDINGS: Bones: No fractures or dislocations. No suspicious bony lesions. Visualized ribs appear intact. Mild glenohumeral and acromioclavicular joint osteoarthritis. Soft tissues: No suspicious soft tissue calcifications. Neurostimulator leads partially visualized. IMPRESSION: Mild osteoarthritis. Dictated by: Ashleigh Orozco MD, PhD on 09/27/2021 at 16:19 Approved by: Ashleigh Orozco MD, PhD on 09/27/2021 at 16:20
== END ==
PROVIDERS: PCP Student in an Organized Health Care Education/Training Program; Referring Provider Family Medicine; Visit Provider Family Medicine
DX: M19.011 Primary osteoarthritis, right shoulder (principal); M25.511 Pain in right shoulder; S43.429A Sprain of unspecified rotator cuff capsule, initial encounter
CPT/HCPCS: 73030

== ENCOUNTER → 2021-10-02 10:09 | Outpatient (CLI) | payer MEDICARE, SELFPAY ==
[2018-08-07 17:02] VITALS: BMI 24.7
== END ==
PROVIDERS: PCP Student in an Organized Health Care Education/Training Program; Referring Provider Family Medicine; Visit Provider Family Medicine
DX: M25.511 Pain in right shoulder (principal); S43.429A Sprain of unspecified rotator cuff capsule, initial encounter

== ENCOUNTER → 2021-10-06 13:28 | Outpatient (CLI) | payer MEDICARE, SELFPAY ==
[2018-08-07 17:02] VITALS: BMI 24.7
--- NOTE | 2021-10-06 13:29 | DI.MRI.S_ITS ---
PROCEDURE: MR SHOULDER RT WO CON INDICATIONS: right shoulder pain and reduced ROM TECHNIQUE: Noncontrast oblique coronal T2 fast spin echo with fat saturation, oblique sagittal T1 spin echo and T2 fast spin echo with fat saturation, axial T1 spin echo and T2 fast spin echo with fat saturation through the shoulder. COMPARISON: [facility], MR, SHOULDER WITHOUT CONTRAST, 04/21/2015, 9:33. FINDINGS: Image quality: Excellent. Rotator cuff: There is full-thickness rupture involving anterior to mid fibers of distal supraspinatus at its insertion on the humeral head with up to 2.3 cm medial retraction of torn tendon fibers and a fluid-filled gap measures 1.9 cm in AP dimension. Tendinosis and moderate grade articular surface partial-thickness tear involving posterior fibers of distal supraspinatus and infraspinatus is seen. Distal subscapularis tendinosis and low-grade intrasubstance partial-thickness tear is noted. Sagittal images demonstrate mild supraspinatus and infraspinatus muscle atrophy. Bones and bursae: No bone marrow contusions or fractures. Moderate acromioclavicular joint and glenohumeral joint osteoarthritic changes are seen. There is moderate to large amount of subacromial subdeltoid bursal fluid. No gross loose bodies. Capsule and soft tissues: Signal abnormality and contour irregularity involving superior anterior labrum at 12 to 2 o'clock position is seen. The long head of the biceps tendinosis and low-grade partial-thickness tear is noted. The rotator interval appears normal, without fibrosis. The coracohumeral ligament is normal in thickness. IMPRESSION: 1. Full-thickness rupture involving anterior to mid fibers of distal supraspinatus at its insertion on the humeral head with up to 2.3 cm medial retraction of torn tendon fibers and fluid-filled gap measures 1.9 cm in AP dimension. Tendinosis and moderate grade articular surface partial-thickness tear involving posterior fibers of distal supraspinatus and distal infraspinatus. Distal subscapularis tendinosis and low-grade intrasubstance partial-thickness tear. Mild supraspinatus and infraspinatus muscle atrophy. 2. Moderate acromioclavicular joint and glenohumeral joint osteoarthritis. Moderate to large joint effusion and subacromial subdeltoid bursal fluid. 3. Suggestion of subtle superior anterior labral tear at 12 to 2 o'clock position. 4. Tendinosis and low-grade partial-thickness tear involving proximal intra-articular portion of long head of biceps. Dictated by: Evan Bourne M.D. on 10/06/2021 at 16:45 Approved by: Evan Bourne M.D. on 10/06/2021 at 16:48
== END ==
PROVIDERS: PCP Student in an Organized Health Care Education/Training Program; Referring Provider Family Medicine; Visit Provider Family Medicine
DX: M25.511 Pain in right shoulder (principal); S43.429A Sprain of unspecified rotator cuff capsule, initial encounter; S46.011A Strain of muscle(s) and tendon(s) of the rotator cuff of right shoulder, initial encounter; M19.011 Primary osteoarthritis, right shoulder; S46.111A Strain of muscle, fascia and tendon of long head of biceps, right arm, initial encounter
CPT/HCPCS: 73221

== ENCOUNTER → 2022-01-26 09:33 | Outpatient (CLI) | payer MEDICARE, SELFPAY ==
[2022-01-04 13:14] VITALS: BMI 24.7
== END ==
PROVIDERS: PCP Student in an Organized Health Care Education/Training Program; Visit Provider Urology
DX: N40.1 Benign prostatic hyperplasia with lower urinary tract symptoms (principal); R33.8 Other retention of urine; R82.81 Pyuria; N32.3 Diverticulum of bladder; R31.29 Other microscopic hematuria; Z78.9 Other specified health status
CPT/HCPCS: 51798; 81002; 87077; 87086; 87186; 99214

== ENCOUNTER → 2022-02-23 10:39 | Outpatient (CLI) | payer MEDICARE, SELFPAY ==
[2022-01-04 13:14] VITALS: BMI 24.7
[2022-02-23 12:29] LABS: Appearance Urine UA CLEAR; Bilirubin Urine UA NEGATIVE (NEGATIVE); Color Urine UA YELLOW; Glucose Urine UA NEGATIVE (Negative); Ketones Urine UA NEGATIVE (NEGATIVE); Leukocyte Esterase Urine UA TRACE (NEGATIVE); Nitrite Urine UA NEGATIVE (Negative); Occult Blood Urine UA 1+ (Negative); Protein Urine UA NEGATIVE (Negative); Specific Gravity Urine UA 1.015 (1.000-1.035); Urobilinogen Urine UA 0.2 E.U./dL (0.2)
[2022-02-23 12:41] LABS: Bacteria Urine Few (2-10); Culture Indicated Urine Specimen Cultured; RBC Urine 1-5/HPF (0-5/HPF); WBC Urine 1-5/HPF (0-5/HPF)
== END ==
PROVIDERS: PCP Student in an Organized Health Care Education/Training Program; Referring Provider Urology; Visit Provider Urology
DX: N40.1 Benign prostatic hyperplasia with lower urinary tract symptoms (principal); R33.8 Other retention of urine
CPT/HCPCS: 81001; 87077; 87086; 87186

== ENCOUNTER 2022-12-05 12:13 | Emergency (ER) | payer MEDICARE, SELFPAY ==
[2022-01-04 13:14] VITALS: BMI 24.7
[2022-12-05 12:29] VITALS: BP 187/86; PULSE 63; RESP 16; TEMP 36.8; O2SAT 97; BMI 23.6
--- NOTE | 2022-12-05 12:40 | DI.RAD.S_ITS ---
PROCEDURE: XR ACUTE ABDOMEN SERIES INDICATIONS: constipation x 7 days TECHNIQUE: One view chest and two views of the abdomen were acquired. COMPARISON: None. FINDINGS: Surgical changes and devices: Likely cord stimulator leads are seen projecting in the region of lower cervical spine Chest: Lungs are clear. Heart size is normal. No pleural effusions. No pneumoperitoneum. Abdomen: Bowel gas pattern is nonobstructive. Fecal stasis in right colon is seen near hepatic flexure. No suspicious calcifications. Visualized solid organ contours appear normal. Bones: No suspicious bony lesions. Moderate S shaped scoliosis of thoracic and lumbar spine is seen. IMPRESSION: No evidence of bowel obstruction or gross free air. [id number] constipation. No acute cardiopulmonary pathology. Dictated by: Evan Bourne M.D. on 12/05/2022 at 13:49 Approved by: Evan Bourne M.D. on 12/05/2022 at 13:52
[2022-12-05 14:05] VITALS: BP 197/88; PULSE 54; RESP 16; O2SAT 99
--- NOTE | 2022-12-05 14:13 | PC.NURSE ---
On assessment, pt noted to have irregular and kenny HR at 49-60. EKG requested and provider Dragan notified.
--- NOTE | 2022-12-05 14:17 | DI.CT.S_ITS ---
PROCEDURE: CT ABDOMEN PELVIS W CON INDICATIONS: RLQ pain TECHNIQUE: After the administration of intravenous contrast, axial sections acquired from the lung bases to the pubic symphysis. Coronal and sagittal reformats were performed. For radiation dose reduction, the following was used: automated exposure control, adjustment of mA and/or kV according to patient size. COMPARISON: [facility], CT, CT ABDOMEN PELVIS W CON, 06/22/2018, 9:16. FINDINGS: Image quality: Excellent. Lung bases: Unremarkable. Heart: No significant findings. ABDOMEN: Liver: Stable calcification at the hepatic dome and left hepatic cyst since 06/22/2018. Gallbladder: Unremarkable. Biliary ducts: Unremarkable. Pancreas: Unremarkable. Spleen: Unremarkable. Adrenal Glands: Unremarkable. Kidneys and Ureters: Unremarkable. Stomach and Bowel: Stomach, small bowel loops, and colon are unremarkable. Similar periappendiceal right lower quadrant calcification. Colonic diverticulosis without evidence of acute diverticulitis. Peritoneum: No abnormal intraperitoneal fluid. No free air. Ventral Wall: No hernias. Abdominal Nodes: No retroperitoneal or mesenteric adenopathy by size criteria. Vessels: Aorta and inferior vena cava are normal in size. PELVIS: Pelvic Organs: Prostatomegaly. Bladder: Circumferential bladder wall thickening, greater in extent than expected for degree of distention. Redemonstration of right posterior urinary bladder diverticulum with similar adjacent mural nodularity. Pelvic Nodes: No enlarged lymph nodes. Miscellaneous: No hernias are seen. Bones: No acute or suspicious osseous abnormality. Levoconvex scoliosis of the lumbar spine. Spinal stimulator seen in the left posterior paraspinal soft tissues. IMPRESSION: 1. No acute process to explain patient's symptoms. 2. Prostatomegaly with circumferential bladder wall thickening, likely reflecting chronic bladder outlet obstruction. 3. Stable right posterior urinary bladder diverticulum with similar adjacent mural nodularity. Further assessment with direct visualization can be performed if clinically indicated. Approved by: Yisel Perera M.D. on 12/05/2022 at 15:58
--- NOTE | 2022-12-05 14:25 | ED_ITS ---
HPI - Abdominal Pain <Sharlene Archibald PA-C - Last Filed: 12/06/22 18:51> General Chief Complaint: Abdominal Pain Stated Complaint: intestinal blockage Time Seen by Provider: 12/05/22 13:10 Source: patient Mode of arrival: Ambulatory History of Present Illness HPI narrative: 82-year-old male with past medical history BPH, overactive bladder, osteoarthritis presents to the ED with 10 days of right lower quadrant pain and constipation. Patient states that he is not had a solid bowel movement in the last 10 days. Patient states he has been taking Dulcolax for the past week, notes watery stool but nothing solid. Patient denies chest pain, shortness of breath, fever, chills, nausea, vomiting, hematochezia, melena, lightheadedness, dizziness, syncope. Related Data Home Medications Medication Instructions Recorded Confirmed naproxen sodium 220 mg capsule 220 mg PO Q12H PRN 01/26/22 08/22/22 (Aleve) Previous Rx's Medication Instructions Recorded docusate sodium 100 mg capsule 100 mg PO BID #60 caps 08/07/18 (Colace) solifenacin 10 mg tablet 10 mg PO DAILY #30 tabs 03/09/22 Allergies Allergy/AdvReac Type Severity Reaction Status Date / Time No Known Drug Allergies Allergy Verified 08/22/22 14:00 Review of Systems <Sharlene Archibald PA-C - Last Filed: 12/06/22 18:51> Review of Systems ROS Unobtainable: All systems reviewed & are unremarkable except as noted in HPI and below Constitutional Constitutional: Denies chills, Denies fatigue, Denies fever(s), Denies frequent falls, Denies lethargy and Denies weakness Eyes Eyes: Denies change in vision, Denies eye discharge, Denies irritation and Denies loss of vision ENT Ears, Nose, Mouth, and Throat: Denies change in voice, Denies dizziness, Denies neck pain, Denies sore throat and Denies throat swelling Cardiovascular Cardiovascular: Denies chest pain, Denies irregular heart rhythm, Denies lightheadedness, Denies palpitations, Denies dyspnea, Denies dyspnea on exertion and Denies orthopnea Respiratory Respiratory: Denies cough, Denies dyspnea, Denies dyspnea on exertion and Denies wheezing Gastrointestinal Gastrointestinal: Reports abdominal pain, Denies change in bowel habits, Reports constipation, Denies diarrhea, Reports loose stools, Denies nausea and Denies vomiting Genitourinary Genitourinary: Denies hematuria, Denies flank pain, Denies urinary incontinence and Denies urinary urgency Musculoskeletal Musculoskeletal: Denies back pain, Denies muscle weakness, Denies neck pain, Denies numbness and Denies tingling Integumentary/Breasts Skin/Breast: Denies pruritus, Denies erythema, Denies rash and Denies wounds Neurologic Neurologic: Denies behavioral changes, Denies confusion, Denies dizziness, Denies frequent falls, Denies loss of vision, Denies numbness, Denies tingling and Denies weakness Psychiatric Psychiatric: Denies anxiety, Denies behavioral changes, Denies confusion, Denies depression, Denies homicidal ideation and Denies suicidal ideation Endocrine Endocrine: Denies fatigue, Denies flushing and Denies palpitations Hematologic/Lymphatic Hematologic/Lymphatic: Denies easy bruising Allergic/Immunologic Allergic/Immunologic: Denies urticaria, Denies throat swelling and Denies whee zing Patient History <Sharlene Archibald PA-C - Last Filed: 12/06/22 18:51> Medical History Bladder diverticulum BPH (benign prostatic hyperplasia) Chronic pain syndrome (Unknown) High blood pressure Intermittent self-catheterization of bladder Lower urinary tract symptoms Shoulder pain, left (Unknown) Surgical History H/O cystoscopy History of hernia repair History of tonsillectomy Status post insertion of spinal cord stimulator Family History Father CAD in [place] artery History of BPH Mother Hypertension Social History marital status: number of children: 0 household members: none Smoking Status: Never smoker alcohol intake: current Type(s) of exercise: other frequency: 3-4 times per week Smoking Status: Never smoker alcohol intake frequency: 0-2 drinks per day Substance Use Type: does not use Exam <Sharlene Archibald PA-C - Last Filed: 12/06/22 18:51> Narrative Exam Narrative: Const General:?cooperative, healthy appearing and comfortable HENMT Head:?normal to inspection Ears:?hearing grossly normal bilaterally Nose:?external nose normal Face and sinus:?normal facial exam and sinuses nontender Mouth:?oral mucosae normal Throat:?posterior oropharynx normal Eyes General:?appearance normal, both eyes and all related structures Neck Neck:?normal visual inspection and no lymphadenopathy noted Resp Effort & Inspection:?normal respiratory effort Auscultation:?clear to auscultation bilaterally Cardio Rate:?regular rate Rhythm:?regular rhythm GI Abdomen is soft, nondistended. Abdomen is tender to palpation in the right lower quadrant. There is no CVA tenderness. Neuro General:?patient alert, patient awake and patient oriented x3 Initial Vital Signs Initial Vital Signs: Vital Signs Temperature 98.2 F 12/05/22 12:29 Pulse Rate 63 12/05/22 12:29 Respiratory Rate 16 12/05/22 12:29 Blood Pressure 187/86 H 12/05/22 12:29 Pulse Oximetry 97 12/05/22 12:29 Oxygen Delivery Method Room Air 12/05/22 12:29 <Caridad Fowler DO - Last Filed: 12/13/22 19:15> Initial Vital Signs Initial Vital Signs: Vital Signs Temperature 98.2 F 12/05/22 12:29 Pulse Rate 63 12/05/22 12:29 Respiratory Rate 16 12/05/22 12:29 Blood Pressure 187/86 H 12/05/22 12:29 Pulse Oximetry 97 12/05/22 12:29 Oxygen Delivery Method Room Air 12/05/22 12:29 Course <Sharlene Archibald PA-C - Last Filed: 12/06/22 18:51> Orders Ordered: ED Orders 12/05/22 12:40 XR acute abdomen series Stat 12/05/22 14:17 CT abdomen pelvis w con Stat CBC Auto Diff [Complete Blood Count AUTO DIFF] Stat CMP [Comprehensive Metabolic Panel] Stat Lipase Stat Vital Signs Vital signs: Vital Signs - 8 hr 12/05/22 12:29 12/05/22 14:05 Temperature 98.2 F Pulse Rate 63 54 L Respiratory Rate 16 16 Blood Pressure 187/86 H 197/88 H Pulse Oximetry 97 99 Oxygen Delivery Method Room Air Room Air <DO Bharath Castellano Last Filed: 12/13/22 19:15> Orders Ordered: ED Orders 12/05/22 12:40 XR acute abdomen series Stat 12/05/22 14:17 CT abdomen pelvis w con Stat CBC Auto Diff [Complete Blood Count AUTO DIFF] Stat CMP [Comprehensive Metabolic Panel] Stat Lipase Stat Vital Signs Vital signs: Vital Signs - 8 hr 12/05/22 12:29 12/05/22 14:05 Temperature 98.2 F Pulse Rate 63 54 L Respiratory Rate 16 16 Blood Pressure 187/86 H 197/88 H Pulse Oximetry 97 99 Oxygen Delivery Method Room Air Room Air MDM - Abdominal Pain <Sharlene Archibald PA-C - Last Filed: 12/06/22 18:51> Lab Data 12/05/22 14:25 12/05/22 14:25 Labs: Lab Results 12/05/22 12/05/22 12/05/22 Range/Units 14:25 14:25 14:50 WBC 7.8 (4.5-11.0) X10^3/uL RBC 4.72 (4.5-5.9) X10^6/uL Hgb 14.7 (13.5-17.5) g/dL Hct 43.8 (41-53) % MCV 92.8 (80-100) fL MCH 31.1 (26-34) PG MCHC 33.5 (30-36) % RDW 14.5 (11.6-14.8) % Plt Count 251 (150-400) X10^3/uL Neut % (Auto) 68.8 (50-75) % Lymph % (Auto) 21.4 L (25-40) % Will % (Auto) 8.0 (3-14) % Eos % (Auto) 0.8 L (2-4) % Baso % (Auto) 1.0 (0-2) % Neut # (Auto) 5400 (4399-6793) /uL Lymph # (Auto) 1700 (5041-6460) /uL Will # (Auto) 600 (0-900) /uL Eos # (Auto) 100 (0-450) /uL Baso # (Auto) 100 (0-100) /uL Sodium 139 (137-145) mmol/L Potassium 3.8 (3.4-5.1) mmol/L Chloride 106 (98-107) mmol/L Carbon Dioxide 26 (22-32) mmol/L BUN 16 (9-20) mg/dL Creatinine 0.78 (0.66-1.25) mg/dL Estimated GFR > 60 (>60) mL/min BUN/Creatinine Ratio 20.5 (6-22) Glucose 97 (80-110) mg/dL Calcium 9.2 (8.4-10.2) mg/dL Total Bilirubin 0.6 (0.2-1.3) mg/dL AST 27 (17-59) IU/L ALT 17 (<50) IU/L Alkaline Phosphatase 102 (38-126) U/L Total Protein 7.1 (6.3-8.2) g/dL Albumin 3.9 (3.5-5.0) g/dL Globulin 3.2 (1.7-4.1) g/dL Albumin/Globulin Ratio 1.2 (1.0-2.8) Lipase 117 (23-300) U/L Urine RBC 1-5/hpf (0-5/HPF) Urine WBC >100/hpf H (0-5/HPF) Ur Squamous Epith Cells None seen (0-5/HPF) Urine Bacteria Many (>30) H (None) Ur Culture Indicated? Specimen cultured Point of care testing: Urine Dip Bedside Urine Glucose Negative Bedside Urine Bilirubin - Negative Bedside Urine Ketone +/- 5 Urine Specific [place] 1.015 Bedside Urine Occult Blood ++ Bedside Urine pH 6.0 Bedside Urine Protein +/- 15 Bedside Urine Urobilinogen - Negative Bedside Urine Nitrite + Positive Bedside Urine Leukocytes +++ 500 Esterase MDM Narrative Medical decision making narrative: 82-year-old male with past medical history BPH, overactive bladder, osteoarthritis presents to the ED with 10 days of right lower quadrant pain and constipation. Concern for constipation versus diverticulitis versus appendicitis versus malignancy versus other intra-abdominal pathology versus UTI versus other. Will obtain labs, lipase, UA, CT abdomen pelvis. Will reassess. Labs were within normal limits. Patient wished to leave the ED prior to the rest of his workup being completed. Patient left against medical advice, stating that it has been too long of a wait. Patient was able to walk out with no issues. Medical records reviewed: Yes <Caridad Fowler, DO - Last Filed: 12/13/22 19:15> Lab Data Labs: Lab Results 12/05/22 12/05/22 12/05/22 Range/Units 14:25 14:25 14:50 WBC 7.8 (4.5-11.0) X10^3/uL RBC 4.72 (4.5-5.9) X10^6/uL Hgb 14.7 (13.5-17.5) g/dL Hct 43.8 (41-53) % MCV 92.8 (80-100) fL MCH 31.1 (26-34) PG MCHC 33.5 (30-36) % RDW 14.5 (11.6-14.8) % Plt Count 251 (150-400) X10^3/uL Neut % (Auto) 68.8 (50-75) % Lymph % (Auto) 21.4 L (25-40) % Will % (Auto) 8.0 (3-14) % Eos % (Auto) 0.8 L (2-4) % Baso % (Auto) 1.0 (0-2) % Neut # (Auto) 5400 (0278-0150) /uL Lymph # (Auto) 1700 (2582-3188) /uL Will # (Auto) 600 (0-900) /uL Eos # (Auto) 100 (0-450) /uL Baso # (Auto) 100 (0-100) /uL Sodium 139 (137-145) mmol/L Potassium 3.8 (3.4-5.1) mmol/L Chloride 106 (98-107) mmol/L Carbon Dioxide 26 (22-32) mmol/L BUN 16 (9-20) mg/dL Creatinine 0.78 (0.66-1.25) mg/dL Estimated GFR > 60 (>60) mL/min BUN/Creatinine Ratio 20.5 (6-22) Glucose 97 (80-110) mg/dL Calcium 9.2 (8.4-10.2) mg/dL Total Bilirubin 0.6 (0.2-1.3) mg/dL AST 27 (17-59) IU/L ALT 17 (<50) IU/L Alkaline Phosphatase 102 (38-126) U/L Total Protein 7.1 (6.3-8.2) g/dL Albumin 3.9 (3.5-5.0) g/dL Globulin 3.2 (1.7-4.1) g/dL Albumin/Globulin Ratio 1.2 (1.0-2.8) Lipase 117 (23-300) U/L Urine RBC 1-5/hpf (0-5/HPF) Urine WBC >100/hpf H (0-5/HPF) Ur Squamous Epith Cells None seen (0-5/HPF) Urine Bacteria Many (>30) H (None) Ur Culture Indicated? Specimen cultured Point of care testing: Urine Dip Bedside Urine Glucose Negative Bedside Urine Bilirubin - Negative Bedside Urine Ketone +/- 5 Urine Specific [place] 1.015 Bedside Urine Occult Blood ++ Bedside Urine pH 6.0 Bedside Urine Protein +/- 15 Bedside Urine Urobilinogen - Negative Bedside Urine Nitrite + Positive Bedside Urine Leukocytes +++ 500 Esterase ECG Data Interpretation: Janeth-sinus rhythm rate 90 AK interval 140 QRS 104 QTC [address] changes Discharge Plan Departure Patient Disposition: Left Against Medical Advice Clinical Impression: Left against medical advice Prescriptions: No Action docusate sodium [Colace] 100 mg capsule 100 mg PO BID Qty: 60 2RF naproxen sodium [Aleve] 220 mg capsule 220 mg PO Q12H PRN solifenacin 10 mg tablet 10 mg PO DAILY Qty: 30 12RF Stand Alone Forms: Against Medical Advice <Caridad Fowler DO - Last Filed: 12/13/22 19:15> Cosign ED Attending Cosignature Attestation: I was immediately available in the department for consultation. Documentation has been reviewed.
--- NOTE | 2022-12-05 14:41 | PC.NURSE ---
Pt further reports 15-20 lb weight loss with the abdominal pain and constipation of the last 10-12 days
[2022-12-05 14:42] LABS: Add Manual Diff / Slide Review NO; Basophils Absolute Auto 100 /uL (0-100); Eosinophils Absolute Auto 100 /uL (0-450); Eosinophils Percent Auto 0.8 % (2-4); Hematocrit 43.8 % (41-53); Hemoglobin 14.7 g/dL (13.5-17.5); Lymphocytes Absolute Auto 1700 /uL (1100-4500); Lymphocytes Percent Auto 21.4 % (25-40); Mean Corpuscular HGB Conc 33.5 % (30-36); Mean Corpuscular Hemoglobin 31.1 PG (26-34); Mean Corpuscular Volume 92.8 fL (80-100); Monocytes Absolute Auto 600 /uL (0-900); Neutrophils Absolute Auto 5400 /uL (1500-7000); Neutrophils Percent Auto 68.8 % (50-75); Platelet Count 251 X10^3/uL (150-400); Red Blood Cell Count 4.72 X10^6/uL (4.5-5.9); Red Cell Distribution Width 14.5 % (11.6-14.8); White Blood Cell Count 7.8 X10^3/uL (4.5-11.0)
[2022-12-05 15:00] LABS: Alanine Aminotransferase 17 IU/L (<50); Albumin 3.9 g/dL (3.5-5.0); Albumin Globulin Ratio 1.2 (1.0-2.8); Alkaline Phosphatase 102 U/L (38-126); Aspartate Aminotransferase 27 IU/L (17-59); BUN Creatinine Ratio 20.5 (6-22); Bilirubin Total 0.6 mg/dL (0.2-1.3); Blood Urea Nitrogen 16 mg/dL (9-20); Calcium 9.2 mg/dL (8.4-10.2); Carbon Dioxide 26 mmol/L (22-32); Chloride 106 mmol/L (98-107); Estimated Glomerular Filt Rate > 60 mL/min (>60); Globulin 3.2 g/dL (1.7-4.1); Glucose 97 mg/dL (80-110); HEMOLYSIS < 15 (0-50); Lipase 117 U/L (23-300); Potassium 3.8 mmol/L (3.4-5.1); Sodium 139 mmol/L (137-145); Total Protein 7.1 g/dL (6.3-8.2)
[2022-12-05 16:22] LABS: Bacteria Urine Many (>30); Culture Indicated Urine Specimen Cultured; RBC Urine 1-5/HPF (0-5/HPF); Squamous Epithelial Cell Urine None Seen (0-5/HPF); WBC Urine >100/HPF (0-5/HPF)
== END 2022-12-05 16:05 | disposition left against medical advice (07) ==
PROVIDERS: Emergency Provider Student in an Organized Health Care Education/Training Program; PCP Student in an Organized Health Care Education/Training Program
DX: R10.31 Right lower quadrant pain (principal)
CPT/HCPCS: 36415; 74022; 74177; 80053; 81003; 81015; 83690; 85025; 87077; 87086; 87186; 93005; 99284; Q9967

== ENCOUNTER → 2023-01-19 11:40 | Outpatient (CLI) | payer MEDICARE, SELFPAY ==
[2022-01-04 13:14] VITALS: BMI 24.7
== END ==
PROVIDERS: PCP Student in an Organized Health Care Education/Training Program; Visit Provider Specialist
DX: R33.8 Other retention of urine (principal); R39.9 Unspecified symptoms and signs involving the genitourinary system; Z78.9 Other specified health status; N32.3 Diverticulum of bladder; N40.1 Benign prostatic hyperplasia with lower urinary tract symptoms
CPT/HCPCS: 51701; 87086

== ENCOUNTER → 2023-02-01 10:11 | Outpatient (CLI) | payer MEDICARE, SELFPAY ==
[2022-01-04 13:14] VITALS: BMI 24.7
--- NOTE | 2023-02-01 10:30 | DI.US.S_ITS ---
PROCEDURE: US SCROTUM INDICATIONS: LEFT TESTICULAR EDEMA TECHNIQUE: Real-time scanning was performed of the scrotum and testicles, with image documentation. Color and pulse Doppler interrogation was performed of both testicles. COMPARISON: [facility], CT, CT ABDOMEN PELVIS W CON, 12/05/2022, 14:59. FINDINGS: Right: Testicle is normal in size at 3.8 x 2.2 x 1.7 cm, volume of 7 cc, and homogenous in echotexture. Epididymis is normal in overall size and morphology. No varicoceles. Small hydrocele. Overlying scrotal skin is normal in thickness. Left: Testicle is normal in size at 4.3 x 2.9 x 2.5 cm, volume of 16 cc, and homogeneous in echotexture. Epididymis is normal in overall size and morphology. No varicoceles. No hydrocele. Overlying scrotal skin is normal in thickness. Doppler: Increased blood flow in the left testicle compared to the right. Blood flow within the epididymi appears symmetric. No torsion. IMPRESSION: 1. Asymmetric increased blood flow in the left testicle and increased in size compared to the right. Findings in keeping with left orchitis. 2. No testicular mass. Message left in the urology clinic. Dictated by: Irvin Trevizo M.D. on 02/01/2023 at 12:01 Approved by: Irvin Trevizo M.D. on 02/01/2023 at 12:08
== END ==
PROVIDERS: PCP Physician Assistant; Referring Provider Specialist; Visit Provider Specialist
DX: N40.0 Benign prostatic hyperplasia without lower urinary tract symptoms (principal); Z78.9 Other specified health status; R39.9 Unspecified symptoms and signs involving the genitourinary system; N32.3 Diverticulum of bladder; N40.1 Benign prostatic hyperplasia with lower urinary tract symptoms; R33.8 Other retention of urine; R93.41 Abnormal radiologic findings on diagnostic imaging of renal pelvis, ureter, or bladder; R10.31 Right lower quadrant pain; N50.89 Other specified disorders of the male genital organs; N50.819 Testicular pain, unspecified
CPT/HCPCS: 76870; 93975

== ENCOUNTER → 2023-02-15 14:31 | Outpatient (CLI) | payer MEDICARE, SELFPAY ==
[2022-01-04 13:14] VITALS: BMI 24.7
[2023-02-15 15:48] LABS: Bilirubin Urine UA NEGATIVE (NEGATIVE); Color Urine UA YELLOW; Glucose Urine UA NEGATIVE (Negative); Ketones Urine UA NEGATIVE (NEGATIVE); Leukocyte Esterase Urine UA 3+ (NEGATIVE); Nitrite Urine UA POSITIVE (Negative); Occult Blood Urine UA 1+ (Negative); Protein Urine UA 1+ (Negative); Specific Gravity Urine UA 1.025 (1.000-1.035); Urobilinogen Urine UA 0.2 E.U./dL (0.2)
[2023-02-15 16:08] LABS: Appearance Urine UA CLOUDY
[2023-02-15 16:10] LABS: Bacteria Urine Many (>30); Culture Indicated Urine Specimen Cultured; RBC Urine 1-5/HPF (0-5/HPF); Squamous Epithelial Cell Urine 1-5 /HPF (0-5/HPF); WBC Urine >100/HPF (0-5/HPF)
== END ==
PROVIDERS: PCP Physician Assistant; Referring Provider Specialist; Visit Provider Specialist
DX: Z78.9 Other specified health status (principal); R39.9 Unspecified symptoms and signs involving the genitourinary system; N40.1 Benign prostatic hyperplasia with lower urinary tract symptoms; R33.8 Other retention of urine
CPT/HCPCS: 81001; 87077; 87086; 87186

== ENCOUNTER → 2023-02-28 14:36 | Outpatient (CLI) | payer MEDICARE, SELFPAY ==
[2022-01-04 13:14] VITALS: BMI 24.7
== END ==
PROVIDERS: PCP Physician Assistant; Visit Provider Urology
DX: N30.00 Acute cystitis without hematuria (principal); N40.1 Benign prostatic hyperplasia with lower urinary tract symptoms; R33.8 Other retention of urine; N32.3 Diverticulum of bladder; R39.9 Unspecified symptoms and signs involving the genitourinary system; R93.41 Abnormal radiologic findings on diagnostic imaging of renal pelvis, ureter, or bladder; R10.31 Right lower quadrant pain; N50.819 Testicular pain, unspecified; N50.89 Other specified disorders of the male genital organs; Z87.438 Personal history of other diseases of male genital organs; Z78.9 Other specified health status
CPT/HCPCS: 51798; 81002; 87086; 99214

== ENCOUNTER → 2023-03-23 11:52 | Outpatient (CLI) | payer MEDICARE, SELFPAY ==
[2022-01-04 13:14] VITALS: BMI 24.7
== END ==
PROVIDERS: PCP Family Medicine; Visit Provider Urology
DX: N30.00 Acute cystitis without hematuria (principal); R39.9 Unspecified symptoms and signs involving the genitourinary system; N40.1 Benign prostatic hyperplasia with lower urinary tract symptoms; R33.8 Other retention of urine; R82.81 Pyuria; N32.3 Diverticulum of bladder; Z87.438 Personal history of other diseases of male genital organs; Z78.9 Other specified health status
CPT/HCPCS: 81002; 87077; 87086; 87186; 99214

== ENCOUNTER 2023-04-20 08:48 | Emergency (ER) | payer MEDICARE, SELFPAY ==
[2022-01-04 13:14] VITALS: BMI 24.7
[2023-04-20 09:02] VITALS: BP 163/70; PULSE 63; RESP 18; TEMP 36.9; O2SAT 97; BMI 20.3
--- NOTE | 2023-04-20 09:14 | PC.NURSE ---
pt has a spinal stimulator right where pt reports having pain, left lower back. 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
--- NOTE | 2023-04-20 09:23 | DI.RAD.S_ITS ---
PROCEDURE: XR LUMBAR SPINE 2-3V INDICATIONS: lower back pain after fall TECHNIQUE: 3 views of the lumbar spine were acquired. COMPARISON: None. FINDINGS: Bones: 5 [id number] vertebrae are present. There is moderate leftward curvature of the lumbar spine. Multilevel disc space narrowing and endplate osteophyte formation, as well as facet hypertrophy. 10 mm of anterolisthesis of L4 on L5. Mild wedging of T12 and L1 of uncertain chronicity No suspicious bony lesions. Soft tissues: Overlying bowel gas pattern is normal. No suspicious soft tissue calcifications. IMPRESSION: 1. Mild T12 and L1 wedging, of uncertain chronicity. 2. Multilevel degenerative disc and facet disease. Dictated by: Darling Flannery M.D. on 04/20/2023 at 9:42 Approved by: Darling Flannery M.D. on 04/20/2023 at 9:43
--- NOTE | 2023-04-20 09:23 | DI.RAD.S_ITS ---
PROCEDURE: XR RIBS LT MIN 3V W CXR1V INDICATIONS: L posterior rib pain TECHNIQUE: 2 views of the ribs were acquired, along with a single view chest. COMPARISON: [facility], CT, CT ABDOMEN PELVIS W CON, 12/05/2022, 14:59. FINDINGS: Surgical changes and devices: Wires/leads project over the central/left chest. Bones and chest wall: There is a moderately displaced left posterolateral 11th rib fracture of uncertain chronicity. No suspicious bony lesions. Overlying soft tissues appear unremarkable. Lungs and pleura: No pleural effusions or pneumothorax. Lungs appear clear. Mediastinum: Mediastinal contours appear normal. Heart size is normal. IMPRESSION: Left 11th rib fracture as above. Dictated by: Darling Flannery M.D. on 04/20/2023 at 9:44 Approved by: Darling Flannery M.D. on 04/20/2023 at 9:47
--- NOTE | 2023-04-20 09:27 | ED_ITS ---
HPI - Back Pain/Injury General Chief Complaint: Back Pain/Injury Stated Complaint: severe back pain Time Seen by Provider: 04/20/23 09:19 Source: patient Mode of arrival: Ambulatory History of Present Illness HPI Narrative: Patient is an 82-year-old male who approximately 5 days ago slipped and fell on his back deck. He did not hit his head. No loss of consciousness. He did land on his left lower back left ribs. He was able to get up afterwards. Since that time he has had persistent and worsening discomfort when his left back. He reports no hip pain. He has been ambulatory. It is difficult for him to stand up and move. He has been trying Tylenol at home without any improvement. He does have a nerve stimulator on that side but it is currently inactive. Related Data Home Medications Medication Instructions Recorded Confirmed naproxen sodium 220 mg capsule 220 mg PO Q12H PRN 01/26/22 03/23/23 (Aleve) Previous Rx's Medication Instructions Recorded docusate sodium 100 mg capsule 100 mg PO BID #60 caps 08/07/18 (Colace) nitrofurantoin 100 mg PO BID #20 caps 02/23/23 monohydrate/macrocrystals 100 mg capsule nitrofurantoin 100 mg PO BID #10 caps 03/23/23 monohydrate/macrocrystals 100 mg capsule nitrofurantoin 100 mg PO BID #20 caps 03/27/23 monohydrate/macrocrystals 100 mg capsule hydrocodone 5 mg-acetaminophen 325 1 tab PO Q4-6H PRN pain #10 tabs 04/20/23 mg tablet Allergies Allergy/AdvReac Type Severity Reaction Status Date / Time No Known Drug Allergies Allergy Verified 04/20/23 09:06 Review of Systems Constitutional Constitutional: Reports system reviewed and no additional complaints, except as documented Gastrointestinal Gastrointestinal: Reports system reviewed and no additional complaints, except as documented Musculoskeletal Musculoskeletal: Reports system reviewed and no additional complaints, except as documented Integumentary/Breasts Skin/Breast: Reports system reviewed and no additional complaints, except as documented Patient History Medical History Urinary tract infection History of orchitis Intermittent self-catheterization of bladder Lower urinary tract symptoms Bladder diverticulum High blood pressure BPH (benign prostatic hyperplasia) Chronic pain syndrome (Unknown) Shoulder pain, left (Unknown) Surgical History H/O cystoscopy History of hernia repair Status post insertion of spinal cord stimulator History of tonsillectomy Family History Father CAD in [place] artery History of BPH Mother Hypertension Social History marital status: number of children: 0 household members: none Smoking Status: Never smoker alcohol intake: current Type(s) of exercise: other frequency: 3-4 times per week Smoking Status: Never smoker alcohol intake frequency: 0-2 drinks per day Substance Use Type: does not use Exam Initial Vital Signs Initial Vital Signs: Vital Signs Temperature 98.5 F 04/20/23 09:02 Pulse Rate 63 04/20/23 09:02 Respiratory Rate 18 04/20/23 09:02 Blood Pressure 163/70 H 04/20/23 09:02 Pulse Oximetry 97 04/20/23 09:02 Oxygen Delivery Method Room Air 04/20/23 09:02 Const General: cooperative, healthy appearing and No ill appearing Resp Effort & Inspection: normal respiratory effort Cardio Rate: regular rate GI Inspection: normal to inspection and non-distended Back/Spine/Pelvis Other: No midline lumbar tenderness. Does have paraspinal left-sided lumbar tenderness. Mild tenderness to palpation of left posterior lower ribs. Skin General: no rashes or lesions noted Neuro General: patient alert, patient awake and moves all extremities Extrem General: capillary refill normal Course Orders Ordered: ED Orders 04/20/23 09:23 XR lumbar spine 2-3V Stat XR ribs LT min 3V w CXR1V Stat Vital Signs Vital signs: Vital Signs - 8 hr 04/20/23 09:02 Temperature 98.5 F Pulse Rate 63 Respiratory Rate 18 Blood Pressure 163/70 H Pulse Oximetry 97 Oxygen Delivery Method Room Air MDM - Back Pain/Injury Imaging Data rib x-ray: Radiologist's Impression: PROCEDURE: XR RIBS LT MIN 3V W CXR1V INDICATIONS: L posterior rib pain TECHNIQUE: 2 views of the ribs were acquired, along with a single view chest. COMPARISON: [facility], CT, CT ABDOMEN PELVIS W CON, 12/05/2022, 14:59. FINDINGS: Surgical changes and devices: Wires/leads project over the central/left chest. Bones and chest wall: There is a moderately displaced left posterolateral 11th rib fracture of uncertain chronicity. No suspicious bony lesions. Overlying soft tissues appear unremarkable. Lungs and pleura: No pleural effusions or pneumothorax. Lungs appear clear. Mediastinum: Mediastinal contours appear normal. Heart size is normal. IMPRESSION: Left 11th rib fracture as above. lumbar spine X-ray: Radiologist's Impression: PROCEDURE: XR LUMBAR SPINE 2-3V INDICATIONS: lower back pain after fall TECHNIQUE: 3 views of the lumbar spine were acquired. COMPARISON: None. FINDINGS: Bones: 5 [id number] vertebrae are present. There is moderate leftward curvature of the lumbar spine. Multilevel disc space narrowing and endplate osteophyte formation, as well as facet hypertrophy. 10 mm of anterolisthesis of L4 on L5. Mild wedging of T12 and L1 of uncertain chronicity No suspicious bony lesions. Soft tissues: Overlying bowel gas pattern is normal. No suspicious soft tissue calcifications. IMPRESSION: 1. Mild T12 and L1 wedging, of uncertain chronicity. 2. Multilevel degenerative disc and facet disease. MDM Narrative Medical decision making narrative: Patient did sustain a mechanical fall. He does have a left 11th rib fracture which corresponds to where he is having discomfort. He states that the lumbar f ractures are not new. I discussed with her fracture with him. Discussed pain control. Discussed return precautions. He expressed understanding and agreement. Discharge Plan Departure Patient Disposition: Home Clinical Impression: Fracture, rib Instructions: DI for Rib Fracture Activity Restrictions/Additional Instructions: Continue to take all of your medications as directed. Use the pain medication that you were prescribed today as needed and as directed. Contact your primary doctor for a follow-up. Return to the emergency department for new symptoms. Prescriptions: New hydrocodone-acetaminophen 5-325 mg tablet 1 tab PO Q4-6H PRN (Reason: pain) Qty: 10 0RF No Action nitrofurantoin monohyd/m-cryst 100 mg capsule 100 mg PO BID Qty: 20 0RF Rx Instructions: must administer with a meal/food nitrofurantoin monohyd/m-cryst 100 mg capsule 100 mg PO BID Qty: 20 0RF Rx Instructions: must administer with a meal/food docusate sodium [Colace] 100 mg capsule 100 mg PO BID Qty: 60 2RF naproxen sodium [Aleve] 220 mg capsule 220 mg PO Q12H PRN nitrofurantoin monohyd/m-cryst 100 mg capsule 100 mg PO BID Qty: 10 0RF Rx Instructions: must administer with a meal/food Referrals: Gee Fu MD [Primary Care Provider] - Stand Alone Forms: Patient Portal/API
[2023-04-20 10:31] VITALS: BP 117/59; PULSE 68; RESP 15; O2SAT 97
== END 2023-04-20 10:33 | disposition home or self-care (01) ==
PROVIDERS: Emergency Provider Emergency Medicine; PCP Family Medicine
DX: S22.32XA Fracture of one rib, left side, initial encounter for closed fracture (principal); W01.0XXA Fall on same level from slipping, tripping and stumbling without subsequent striking against object, initial encounter
CPT/HCPCS: 71101; 72100; 99281; 99283

== ENCOUNTER 2023-05-07 14:37 | Emergency (ER) | payer MEDICARE, SELFPAY ==
[2022-01-04 13:14] VITALS: BMI 24.7
[2023-05-07] VITALS (7 sets, daily range): BP systolic 172–194; BP diastolic 81–90; PULSE 73–99; RESP 19–28; TEMP 36.6–37.1; O2SAT 97–99; BMI 20.3
--- NOTE | 2023-05-07 14:44 | DI.CT.S_ITS ---
PROCEDURE: CT HEAD/BRAIN WO CON INDICATIONS: AMS - HALLUCINATIONS TECHNIQUE: Noncontrast 4.5 mm thick angled axial sections acquired from the foramen magnum to the vertex, with coronal and sagittal reformats. For radiation dose reduction, the following was used: automated exposure control, adjustment of mA and/or kV according to patient size. COMPARISON: None. FINDINGS: Image quality: Diagnostic. CSF spaces: Basal cisterns are patent. No extra-axial fluid collections. Ventricles are normal in size and shape. Brain: No midline shift. No intracranial masses or hemorrhage. Kim-white matter interface is normal. Atrophy and chronic ischemic change noted. Old lacunar infarct noted in the left basal ganglia Skull and face: Calvarium and visualized facial bones are intact, without suspicious lesions. Sinuses: Visualized sinuses and mastoids are clear. IMPRESSION: Atrophy and chronic ischemic change. Old left basal ganglia lacunar infarct. Approved by: Ajay Nguyễn M.D. on 05/07/2023 at 15:10
--- NOTE | 2023-05-07 14:44 | DI.RAD.S_ITS ---
PROCEDURE: XR CHEST 1V INDICATIONS: AMS TECHNIQUE: One view of the chest was acquired. COMPARISON: None. FINDINGS: Surgical changes and devices: Neural stimulators project over the midline at the cervical thoracic junction Lungs and pleura: Lungs are clear. No pleural effusions or pneumothorax. Mediastinum: Mediastinal contours appear normal. Heart size is normal. Bones and chest wall: No suspicious bony lesions. Overlying soft tissues appear unremarkable. Degenerative thoracolumbar dextroscoliosis IMPRESSION: No acute cardiopulmonary abnormality is seen. Approved by: Ajay Nguyễn M.D. on 05/07/2023 at 15:19
--- NOTE | 2023-05-07 14:45 | ED.GENADULT ---
HPI - General Adult General Chief complaint: Altered Mental Status Stated complaint: Increased Confusion Time Seen by Provider: 05/07/23 14:42 History of Present Illness HPI narrative: 82-year-old male presents by EMS from home for altered mental status. History is obtained from sister Susana via cell phone, who called 911. Per sister patient has always been reclusive and somewhat odd with no friends. She states that he has been calling her stating that his house is haunted because someone is adjusting his thermostat at home. Today he apparently called her and said that he thought that he was going to because of whoever was hunting his home, so she called 911. Patient initially refused to go to the hospital but did consent to be evaluated. He denies complaints and states that he is in his usual state of health. He denies wanting to kill himself, but does state he thinks his house is haunted Related Data Home Medications Medication Instructions Recorded Confirmed naproxen sodium 220 mg capsule 220 mg PO Q12H PRN 01/26/22 03/23/23 (Aleve) Previous Rx's Medication Instructions Recorded docusate sodium 100 mg capsule 100 mg PO BID #60 caps 08/07/18 (Colace) nitrofurantoin 100 mg PO BID #20 caps 02/23/23 monohydrate/macrocrystals 100 mg capsule nitrofurantoin 100 mg PO BID #10 caps 03/23/23 monohydrate/macrocrystals 100 mg capsule nitrofurantoin 100 mg PO BID #20 caps 03/27/23 monohydrate/macrocrystals 100 mg capsule hydrocodone 5 mg-acetaminophen 325 1 tab PO Q4-6H PRN pain #10 tabs 04/20/23 mg tablet ciprofloxacin HCl 500 mg tablet 500 mg PO Q12H #14 tabs 05/07/23 Allergies Allergy/AdvReac Type Severity Reaction Status Date / Time No Known Drug Allergies Allergy Verified 04/20/23 09:06 Review of Systems Review of Systems Narrative: Otherwise negative Patient History Medical History Urinary tract infection History of orchitis Intermittent self-catheterization of bladder Lower urinary tract symptoms Bladder diverticulum High blood pressure BPH (benign prostatic hyperplasia) Chronic pain syndrome (Unknown) Shoulder pain, left (Unknown) Surgical History H/O cystoscopy History of hernia repair Status post insertion of spinal cord stimulator History of tonsillectomy Family History Father CAD in [place] artery History of BPH Mother Hypertension Social History marital status: number of children: 0 household members: none Smoking Status: Never smoker alcohol intake: current Type(s) of exercise: other frequency: 3-4 times per week Smoking Status: Never smoker alcohol intake frequency: 0-2 drinks per day Substance Use Type: does not use Exam Initial Vital Signs Initial Vital Signs: Vital Signs Temperature 97.8 F 05/07/23 14:47 Pulse Rate 87 05/07/23 14:47 Respiratory Rate 19 05/07/23 14:47 Blood Pressure 172/81 H 05/07/23 14:47 Pulse Oximetry 99 05/07/23 14:47 Oxygen Delivery Method Room Air 05/07/23 14:47 Const: Awake, alert, no acute distress, frail, appears chronically unwell Cardiac: regular rate, regular rhythm RESP: unlabored, clear bilaterally, no wheezing GI: Atraumatic, soft, nontender, nondistended Skin: Warm, Dry, intact Neuro: AO x3, CN II-XII grossly intact, moves all extremities Psych: flat affect, mood normal, not suicidal, not homicidal Course Orders Ordered: Discontinued Medications Ceftriaxone Sodium 1,000 mg/ (Sodium Chloride) 100 mls @ 200 mls/hr IV NOW ONE Stop: 05/07/23 15:51 Last Infusion: 05/07/23 16:29 Dose: Infused Documented By: Admin: 05/07/23 15:59 Dose: 200 mls/hr Documented By: MORRIS Vital Signs Vital signs: Vital Signs - 8 hr 05/07/23 14:47 05/07/23 15:00 05/07/23 15:07 Temperature 97.8 F Pulse Rate 87 73 80 Respiratory Rate 19 24 Blood Pressure 172/81 H Pulse Oximetry 99 97 97 Oxygen Delivery Method Room Air 05/07/23 15:07 05/07/23 15:30 Temperature Pulse Rate 87 Respiratory Rate Blood Pressure 189/86 H Pulse Oximetry 98 Oxygen Delivery Method Medical Decision Making Differential Diagnosis Differential Diagnosis: UTI, pneumonia, brain mass Lab Data 05/07/23 14:52 05/07/23 14:52 Labs: Lab Results 05/07/23 05/07/23 05/07/23 Range/Units 14:52 15:02 15:16 WBC 7.0 (4.5-11.0) X10^3/uL RBC 4.70 (4.5-5.9) X10^6/uL Hgb 14.4 (13.5-17.5) g/dL Hct 42.6 (41-53) % MCV 90.7 (80-100) fL MCH 30.7 (26-34) PG MCHC 33.8 (30-36) % RDW 15.4 H (11.6-14.8) % Plt Count 219 (150-400) X10^3/uL Neut % (Auto) 53.1 (50-75) % Lymph % (Auto) 29.4 (25-40) % [place] % (Auto) 12.1 (3-14) % Eos % (Auto) 4.5 H (2-4) % Baso % (Auto) 0.9 (0-2) % Neut # (Auto) 3700 (6707-6626) /uL Lymph # (Auto) 2100 (5550-9265) /uL [place] # (Auto) 900 (0-900) /uL Eos # (Auto) 300 (0-450) /uL Baso # (Auto) 100 (0-100) /uL PT 13.0 H (9.4-12.5) SECONDS INR 1.1 (0.9-1.3) Sodium 140 (137-145) mmol/L Potassium 3.9 (3.4-5.1) mmol/L Chloride 107 (98-107) mmol/L Carbon Dioxide 24 (22-32) mmol/L BUN 24 H (9-20) mg/dL Creatinine 0.84 (0.66-1.25) mg/dL Estimated GFR > 60 (>60) mL/min BUN/Creatinine Ratio 28.6 H (6-22) Glucose 111 H (80-110) mg/dL Calcium 9.5 (8.4-10.2) mg/dL Total Bilirubin 0.6 (0.2-1.3) mg/dL AST 25 (17-59) IU/L ALT 15 (<50) IU/L Alkaline Phosphatase 98 (38-126) U/L Total Creatine Kinase 42 L (55-170) U/L Troponin I < 0.012 (0.01-0.034) ng/mL Total Protein 7.2 (6.3-8.2) g/dL Albumin 4.0 (3.5-5.0) g/dL Globulin 3.2 (1.7-4.1) g/dL Albumin/Globulin Ratio 1.3 (1.0-2.8) Urine Color Yellow Urine Appearance Cloudy Urine pH 6.5 (4.5-8.0) Ur Specific [place] 1.025 (1.000-1.035) Urine Protein 1+ H (Negative) Urine Glucose (UA) Negative (Negative) g/dL Urine Ketones Negative (NEGATIVE) Urine Occult Blood Trace-intact (Negative) Urine Nitrate Negative (Negative) Urine Bilirubin Negative (NEGATIVE) Urine Urobilinogen 0.2 (0.2) E.U./dL Ur Leukocyte Esterase 1+ H (NEGATIVE) Urine RBC 0-1/hpf (0-5/HPF) Urine WBC 10-30/hpf H (0-5/HPF) Ur Squamous Epith Cells None seen (0-5/HPF) Urine Bacteria Many (>30) H (None) Ur Culture Indicated? Specimen cultured Vol Urine Centrifuged 10ml (spun) U Opiates 300ng/mL cut Negative (Negative) Ur Oxycodone Screen Negative (Negative) Urine Methadone Screen Negative (Negative) Ur Barbiturates Screen Negative (Negative) U Tricyclic Antidepress Negative (Negative) Ur Phencyclidine Scrn Negative (Negative) Ur Amphetamines Screen Negative (Negative) U Methamphetamines Scrn Negative (Negative) Ur MDMA Scrn (Ecstasy) Negative (Negative) U Benzodiazepines Scrn Negative (Negative) Urine Cocaine Screen Negative (Negative) U Marijuana (THC) Screen Negative (Negative) Urine Specific [place] (Normal) Ethyl Alcohol < 10 ( - 10) mg/dL Ur Creatinine (Normal) Chlamy pneumoniae PCR Not detected (Not Detect) Adenovirus (PCR) Not detected (Not Detect) B.parapertussis DNA PCR Not detected (Not Detecte) Coronavirus OC43 (PCR) Not detected (Not Detect) Coronavirus HKU1 (PCR) Not detected (Not Detect) Coronavirus 229E (PCR) Not detected (Not Detect) SARS-CoV-2 (PCR) Not detected (Not Detecte) Coronavirus NL63 (PCR) Not detected (Not Detect) Human Metapneumovir PCR Not detected (Not Detect) Influenza Type A (PCR) Not detected (Not Detect) Influenza Type B (PCR) Not detected (Not Detect) M. pneumoniae (PCR) Not detected (Not Detect) Parainfluenza 1 (PCR) Not detected (Not Detect) Parainfluenza 2 (PCR) Not detected (Not Detect) Parainfluenza 3 (PCR) Not detected (Not Detect) Parainfluenza 4 (PCR) Not detected (Not Detect) RSV (PCR) Not detected (Not Detect) Entero/Rhino (PCR) Not detected (Not Detect) 05/07/23 Range/Units 15:16 WBC (4.5-11.0) X10^3/uL RBC (4.5-5.9) X10^6/uL Hgb (13.5-17.5) g/dL Hct (41-53) % MCV (80-100) fL MCH (26-34) PG MCHC (30-36) % RDW (11.6-14.8) % Plt Count (150-400) X10^3/uL Neut % (Auto) (50-75) % Lymph % (Auto) (25-40) % [place] % (Auto) (3-14) % Eos % (Auto) (2-4) % Baso % (Auto) (0-2) % Neut # (Auto) (3150-0137) /uL Lymph # (Auto) (0929-7562) /uL [place] # (Auto) (0-900) /uL Eos # (Auto) (0-450) /uL Baso # (Auto) (0-100) /uL PT (9.4-12.5) SECONDS INR (0.9-1.3) Sodium (137-145) mmol/L Potassium (3.4-5.1) mmol/L Chloride (98-107) mmol/L Carbon Dioxide (22-32) mmol/L BUN (9-20) mg/dL Creatinine (0.66-1.25) mg/dL Estimated GFR (>60) mL/min BUN/Creatinine Ratio (6-22) Glucose (80-110) mg/dL Calcium (8.4-10.2) mg/dL Total Bilirubin (0.2-1.3) mg/dL AST (17-59) IU/L ALT (<50) IU/L Alkaline Phosphatase (38-126) U/L Total Creatine Kinase (55-170) U/L Troponin I (0.01-0.034) ng/mL Total Protein (6.3-8.2) g/dL Albumin (3.5-5.0) g/dL Globulin (1.7-4.1) g/dL Albumin/Globulin Ratio (1.0-2.8) Urine Color Urine Appearance Urine pH Normal (4.5-8.0) Ur Specific [place] (1.000-1.035) Urine Protein (Negative) Urine Glucose (UA) (Negative) g/dL Urine Ketones (NEGATIVE) Urine Occult Blood (Negative) Urine Nitrate (Negative) Urine Bilirubin (NEGATIVE) Urine Urobilinogen (0.2) E.U./dL Ur Leukocyte Esterase (NEGATIVE) Urine RBC (0-5/HPF) Urine WBC (0-5/HPF) Ur Squamous Epith Cells (0-5/HPF) Urine Bacteria (None) Ur Culture Indicated? Vol Urine Centrifuged U Opiates 300ng/mL cut (Negative) Ur Oxycodone Screen (Negative) Urine Methadone Screen (Negative) Ur Barbiturates Screen (Negative) U Tricyclic Antidepress (Negative) Ur Phencyclidine Scrn (Negative) Ur Amphetamines Screen (Negative) U Methamphetamines Scrn (Negative) Ur MDMA Scrn (Ecstasy) (Negative) U Benzodiazepines Scrn (Negative) Urine Cocaine Screen (Negative) U Marijuana (THC) Screen (Negative) Urine Specific [place] Normal (Normal) Ethyl Alcohol ( - 10) mg/dL Ur Creatinine Normal (Normal) Chlamy pneumoniae PCR (Not Detect) Adenovirus (PCR) (Not Detect) B.parapertussis DNA PCR (Not Detecte) Coronavirus OC43 (PCR) (Not Detect) Coronavirus HKU1 (PCR) (Not Detect) Coronavirus 229E (PCR) (Not Detect) SARS-CoV-2 (PCR) (Not Detecte) Coronavirus NL63 (PCR) (Not Detect) Human Metapneumovir PCR (Not Detect) Influenza Type A (PCR) (Not Detect) Influenza Type B (PCR) (Not Detect) M. pneumoniae (PCR) (Not Detect) Parainfluenza 1 (PCR) (Not Detect) Parainfluenza 2 (PCR) (Not Detect) Parainfluenza 3 (PCR) (Not Detect) Parainfluenza 4 (PCR) (Not Detect) RSV (PCR) (Not Detect) Entero/Rhino (PCR) (Not Detect) Urine Dip Bedside Urine Glucose Negative Bedside Urine Bilirubin - Negative Bedside Urine Ketone - Negative Urine Specific [place] 1.020 Bedside Urine Occult Blood +/- Bedside Urine pH 6.0 Bedside Urine Protein +/- 15 Bedside Urine Urobilinogen - Negative Bedside Urine Nitrite - Negative Bedside Urine Leukocytes ++ 125 Esterase Point of care testing: Urine Dip Bedside Urine Glucose Negative Bedside Urine Bilirubin - Negative Bedside Urine Ketone - Negative Urine Specific [place] 1.020 Bedside Urine Occult Blood +/- Bedside Urine pH 6.0 Bedside Urine Protein +/- 15 Bedside Urine Urobilinogen - Negative Bedside Urine Nitrite - Negative Bedside Urine Leukocytes ++ 125 Esterase MDM Narrative Medical decision making narrative: Possible altered mental status, patient stating that his house is haunted because someone else keeps messing with his thermostat. CO level negative. Blood work negative for infection or electrolyte abnormalities. CT of brain unremarkable, chest x-ray negative for acute process. Trace leukocyte esterase with many WBCs and many bacteria in the urine. Could be that urinary tract infection is affecting his mentation, patient is insisting on going home and he meets no criteria for involuntary commitment. He was given a dose of Rocephin and antibiotics were sent to pharmacy of choice. Discharge Plan Departure Patient Disposition: Home Clinical Impression: Urinary tract infection Instructions: DI for Urinary Tract Infection (UTI) Prescriptions: New ciprofloxacin HCl 500 mg tablet 500 mg PO Q12H Qty: 14 0RF No Action nitrofurantoin monohyd/m-cryst 100 mg capsule 100 mg PO BID Qty: 20 0RF Rx Instructions: must administer with a meal/food nitrofurantoin monohyd/m-cryst 100 mg capsule 100 mg PO BID Qty: 20 0RF Rx Instructions: must administer with a meal/food docusate sodium [Colace] 100 mg capsule 100 mg PO BID Qty: 60 2RF hydrocodone-acetaminophen 5-325 mg tablet 1 tab PO Q4-6H PRN (Reason: pain) Qty: 10 0RF naproxen sodium [Aleve] 220 mg capsule 220 mg PO Q12H PRN nitrofurantoin monohyd/m-cryst 100 mg capsule 100 mg PO BID Qty: 10 0RF Rx Instructions: must administer with a meal/food Referrals: Gee Fu MD [Primary Care Provider] - Stand Alone Forms: Patient Portal/API
[2023-05-07 15:05] LABS: Add Manual Diff / Slide Review NO; Basophils Absolute Auto 100 /uL (0-100); Basophils Percent Auto 0.9 % (0-2); Eosinophils Absolute Auto 300 /uL (0-450); Eosinophils Percent Auto 4.5 % (2-4); Hematocrit 42.6 % (41-53); Hemoglobin 14.4 g/dL (13.5-17.5); Lymphocytes Absolute Auto 2100 /uL (1100-4500); Lymphocytes Percent Auto 29.4 % (25-40); Mean Corpuscular HGB Conc 33.8 % (30-36); Mean Corpuscular Hemoglobin 30.7 PG (26-34); Mean Corpuscular Volume 90.7 fL (80-100); Monocytes Absolute Auto 900 /uL (0-900); Monocytes Percent Auto 12.1 % (3-14); Neutrophils Absolute Auto 3700 /uL (1500-7000); Neutrophils Percent Auto 53.1 % (50-75); Platelet Count 219 X10^3/uL (150-400); Red Cell Distribution Width 15.4 % (11.6-14.8)
[2023-05-07 15:26] LABS: Urine Volume 10mL (spun)
[2023-05-07 15:29] LABS: Bilirubin Urine UA NEGATIVE (NEGATIVE); Color Urine UA YELLOW; Glucose Urine UA NEGATIVE (Negative); Ketones Urine UA NEGATIVE (NEGATIVE); Leukocyte Esterase Urine UA 1+ (NEGATIVE); Nitrite Urine UA NEGATIVE (Negative); Occult Blood Urine UA TRACE-INTACT (Negative); Protein Urine UA 1+ (Negative); Specific Gravity Urine UA 1.025 (1.000-1.035); Urobilinogen Urine UA 0.2 E.U./dL (0.2); pH Urine UA 6.5 (4.5-8.0)
[2023-05-07 15:31] LABS: Creatine Kinase 42 U/L (55-170)
[2023-05-07 15:32] LABS: Alanine Aminotransferase 15 IU/L (<50); Albumin Globulin Ratio 1.3 (1.0-2.8); Alkaline Phosphatase 98 U/L (38-126); Aspartate Aminotransferase 25 IU/L (17-59); BUN Creatinine Ratio 28.6 (6-22); Bilirubin Total 0.6 mg/dL (0.2-1.3); Blood Urea Nitrogen 24 mg/dL (9-20); Calcium 9.5 mg/dL (8.4-10.2); Carbon Dioxide 24 mmol/L (22-32); Chloride 107 mmol/L (98-107); Estimated Glomerular Filt Rate > 60 mL/min (>60); Ethanol (ETOH) < 10 mg/dL; Globulin 3.2 g/dL (1.7-4.1); Glucose 111 mg/dL (80-110); HEMOLYSIS < 15 (0-50); Potassium 3.9 mmol/L (3.4-5.1); Sodium 140 mmol/L (137-145); Total Protein 7.2 g/dL (6.3-8.2)
[2023-05-07 15:33] LABS: UR Morphine/Opiate cutoff 300 Negative (Negative); Ur Creatinine Normal (Normal); Ur Specific Gravity Normal (Normal); Urine Amphetamines Negative (Negative); Urine Barbiturates Negative (Negative); Urine Benzodiazepines Negative (Negative); Urine Cocaine Negative (Negative); Urine MDMA Negative (Negative); Urine Methadone Negative (Negative); Urine Methamphetamines Negative (Negative); Urine Oxycodone Negative (Negative); Urine Phencyclidine Negative (Negative); Urine Tetrahydrocannabinol Negative (Negative); Urine Tricyclic Antidepressant Negative (Negative); Urine pH Normal (Normal)
[2023-05-07 15:37] LABS: Appearance Urine UA CLOUDY; Bacteria Urine Many (>30); Culture Indicated Urine Specimen Cultured; RBC Urine 0-1/HPF (0-5/HPF); Squamous Epithelial Cell Urine None Seen (0-5/HPF); WBC Urine 10-30/HPF (0-5/HPF)
[2023-05-07 15:43] LABS: Troponin I < 0.012 ng/mL (0.01-0.034)
[2023-05-07] MEDS: cefTRIAXone 1,000 MG in SODIUM CHLORIDE 0.9% 100 ML 200 MG IV (15:59)
[2023-05-07 16:03] LABS: Adenovirus Not Detected (Not Detect); B. parapertussis Not Detected (Not Detecte); Bordetella pertussis Not Detected (Not Detect); Chlamydophila pneumoniae Not Detected (Not Detect); Coronavirus 229E Not Detected (Not Detect); Coronavirus HKU1 Not Detected (Not Detect); Coronavirus NL 63 Not Detected (Not Detect); Coronavirus OC43 Not Detected (Not Detect); Human Metapneumovirus Not Detected (Not Detect); Human Rhinovirus/Enterovirus Not Detected (Not Detect); INR 1.1 (0.9-1.3); Influenza A Not Detected (Not Detect); Influenza B Not Detected (Not Detect); Mycoplasma pneumoniae Not Detected (Not Detect); Parainfluenza Virus 1 Not Detected (Not Detect); Parainfluenza Virus 2 Not Detected (Not Detect); Parainfluenza Virus 3 Not Detected (Not Detect); Parainfluenza Virus 4 Not Detected (Not Detect); Respiratory Syncytial Virus Not Detected (Not Detect); SARS- CoV-2 Not Detected (Not Detecte)
--- NOTE | 2023-05-07 16:28 | PC.NURSE ---
Call placed to [employer] for welfare check tomorrow, per Dr. Dooley. Physician spoke to patient's sister who is handicapped and unable to visit him. Sister states pt lives alone, is eccentric and a hermit.
== END 2023-05-07 16:28 | disposition home or self-care (01) ==
PROVIDERS: Emergency Provider Emergency Medicine; PCP Family Medicine
DX: N39.0 Urinary tract infection, site not specified (principal)
CPT/HCPCS: 36415; 70450; 71045; 80053; 80305; 80320; 81001; 81003; 82550; 84484; 85025; 85610; 87077; 87086; 87185; 87186; 87633; 93005; 96365; 99284; J0696

== ENCOUNTER 2023-07-06 11:54 | Inpatient (IN) | payer MEDICARE, SELFPAY ==
[2022-01-04 13:14] VITALS: BMI 24.7
[2023-07-06] VITALS (16 sets, daily range): BP systolic 134–193; BP diastolic 65–103; PULSE 55–99; RESP 18–40; TEMP 36.5–36.6; O2SAT 95–100; BMI 18.3
--- NOTE | 2023-07-06 12:39 | DI.RAD.S_ITS ---
PROCEDURE: XR CHEST 1V INDICATIONS: Shortness of breath TECHNIQUE: One view of the chest was acquired. COMPARISON: [facility], CR, XR CHEST 1V, 05/07/2023, 14:50. FINDINGS: Surgical changes and devices: Dorsal column stimulator Lungs and pleura: Lungs are clear. No pleural effusions or pneumothorax. Mediastinum: Mediastinal contours appear normal. Heart size is normal. Bones and chest wall: No suspicious bony lesions. Overlying soft tissues appear unremarkable. IMPRESSION: No evidence acute pulmonary process. Dictated by: Jef Lucio M.D. on 07/06/2023 at 13:15 Approved by: Jef Lucio M.D. on 07/06/2023 at 13:15
[2023-07-06 12:49] LABS: INR 1.1 (0.9-1.3); Prothrombin Time 12.6 SECONDS (9.4-12.5)
[2023-07-06 12:52] LABS: Add Manual Diff / Slide Review NO; Basophils Absolute Auto 0 /uL (0-100); Basophils Percent Auto 0.6 % (0-2); Eosinophils Absolute Auto 300 /uL (0-450); Eosinophils Percent Auto 3.6 % (2-4); Hematocrit 42.9 % (41-53); Hemoglobin 14.7 g/dL (13.5-17.5); Lactate (Lactic Acid) 1.4 mmol/L (0.7-2.1); Lymphocytes Absolute Auto 1800 /uL (1100-4500); Lymphocytes Percent Auto 22.9 % (25-40); Mean Corpuscular HGB Conc 34.2 % (30-36); Mean Corpuscular Hemoglobin 31.6 PG (26-34); Mean Corpuscular Volume 92.6 fL (80-100); Monocytes Absolute Auto 700 /uL (0-900); Monocytes Percent Auto 8.9 % (3-14); Neutrophils Absolute Auto 5000 /uL (1500-7000); Platelet Count 307 X10^3/uL (150-400); Red Blood Cell Count 4.64 X10^6/uL (4.5-5.9); Red Cell Distribution Width 14.9 % (11.6-14.8); White Blood Cell Count 7.9 X10^3/uL (4.5-11.0)
[2023-07-06 12:53] LABS: Alanine Aminotransferase 16 IU/L (<50); Albumin 3.7 g/dL (3.5-5.0); Albumin Globulin Ratio 1.1 (1.0-2.8); Alkaline Phosphatase 99 U/L (38-126); Aspartate Aminotransferase 30 IU/L (17-59); BUN Creatinine Ratio 36.4 (6-22); Bilirubin Total 0.8 mg/dL (0.2-1.3); Blood Urea Nitrogen 28 mg/dL (9-20); Calcium 9.2 mg/dL (8.4-10.2); Carbon Dioxide 28 mmol/L (22-32); Chloride 108 mmol/L (98-107); Estimated Glomerular Filt Rate > 60 mL/min (>60); Globulin 3.4 g/dL (1.7-4.1); Glucose 93 mg/dL (80-110); HEMOLYSIS 15 (0-50); Potassium 4.2 mmol/L (3.4-5.1); Sodium 138 mmol/L (137-145); Total Protein 7.1 g/dL (6.3-8.2)
[2023-07-06 13:05] LABS: NT-proBNP (BNP-Adult 18+) 501 pg/mL (<450); Troponin I < 0.012 ng/mL (0.01-0.034)
--- NOTE | 2023-07-06 14:17 | PC.NURSE ---
Pt repositioned and full linen change. Straight cath & urine sent to lab.
--- NOTE | 2023-07-06 15:03 | PC.NURSE ---
Pt turned to right side. Foam dressing placed on stage 1 sacral pressure ulcer. Pt answers all questions appropriately. States that he is unable to get to the bathroom by himself at home and often urinates and has BMs in bed. Pt's friend at bedside and confirms that he visits pt every day and helps to clean stool and urine and change pt's clothes and sheets.
[2023-07-06 15:11] LABS: Appearance Urine UA CLEAR; Bilirubin Urine UA NEGATIVE (NEGATIVE); Color Urine UA YELLOW; Glucose Urine UA NEGATIVE (Negative); Ketones Urine UA 1+ (NEGATIVE); Leukocyte Esterase Urine UA 2+ (NEGATIVE); Nitrite Urine UA NEGATIVE (Negative); Occult Blood Urine UA TRACE-INTACT (Negative); Protein Urine UA TRACE (Negative); Specific Gravity Urine UA 1.015 (1.000-1.035); Urobilinogen Urine UA 0.2 E.U./dL (0.2)
[2023-07-06 15:17] LABS: Bacteria Urine Many (>30); RBC Urine 0-1/HPF (0-5/HPF); Squamous Epithelial Cell Urine 0-1 /HPF (0-5/HPF); Urine Volume 10mL (spun); WBC Urine 30-100/HPF (0-5/HPF)
[2023-07-06 15:18] LABS: Culture Indicated Urine Specimen Cultured
--- NOTE | 2023-07-06 15:51 | ED_ITS ---
HPI - General Adult General Chief complaint: Weakness Stated complaint: Failure to thrive Time Seen by Provider: 07/06/23 13:42 Source: patient and EMS Mode of arrival: EMS History of Present Illness HPI narrative: 82-year-old gentleman who lives independently with multiple recent met calls for welfare checks brought in today by medics with complaints of failure to thrive and reports of being significantly disheveled with a house equally disheveled. Patient's friend reports a recent 40 lb weight loss. In questioning the patient he states that he is ?been tormented by demons, his house is now invested ?. He hears strange sounds at night and is been unable to sleep. He notes this has been going on for a year. He is concerned that the pneumonic physician is getting so bad that the cat is now also infested. He notes that the demons are interfering in a way that is controlling his cooking skills so he has not able to cook which is why he is lost so much weight. He states that it is there ?super natural Colon? that are causing the problems. When asked if the demons are requesting that he hurt himself or hurt others he says no. When asked if he is considered killing himself he says yes but has no plan. Patient was seen in April with somewhat similar complaints. He had been complaining that his house was halted at that time that somebody was suggesting his thermostat. He was found to have urinary tract infection with each of his recent visits each with different bacteria. He states that today he does have some minor urinary irritation and believes he might have another bladder infection. He denies fever, cough, chills, abdominal pain, chest pain, dyspnea. Denies any falls not complaining of headaches or localizing neurologic findings Related Data Home Medications Medication Instructions Recorded Confirmed naproxen sodium 220 mg capsule 220 mg PO Q12H PRN 01/26/22 03/23/23 (Aleve) Previous Rx's Medication Instructions Recorded docusate sodium 100 mg capsule 100 mg PO BID #60 caps 08/07/18 (Colace) nitrofurantoin 100 mg PO BID #20 caps 02/23/23 monohydrate/macrocrystals 100 mg capsule nitrofurantoin 100 mg PO BID #10 caps 03/23/23 monohydrate/macrocrystals 100 mg capsule nitrofurantoin 100 mg PO BID #20 caps 03/27/23 monohydrate/macrocrystals 100 mg capsule hydrocodone 5 mg-acetaminophen 325 1 tab PO Q4-6H PRN pain #10 tabs 04/20/23 mg tablet ciprofloxacin HCl 500 mg tablet 500 mg PO Q12H #14 tabs 05/07/23 Allergies Allergy/AdvReac Type Severity Reaction Status Date / Time No Known Drug Allergies Allergy Verified 04/20/23 09:06 Review of Systems Review of Systems Narrative: Pertinent positive and negative findings as per HPI Patient History Medical History Urinary tract infection History of orchitis Intermittent self-catheterization of bladder Lower urinary tract symptoms Bladder diverticulum High blood pressure BPH (benign prostatic hyperplasia) Chronic pain syndrome (Unknown) Shoulder pain, left (Unknown) Surgical History H/O cystoscopy History of hernia repair Status post insertion of spinal cord stimulator History of tonsillectomy Family History Father CAD in [place] artery History of BPH Mother Hypertension Social History marital status: number of children: 0 household members: none Smoking Status: Never smoker alcohol intake: current Type(s) of exercise: other frequency: 3-4 times per week Smoking Status: Never smoker alcohol intake frequency: 0-2 drinks per day Substance Use Type: does not use Exam Initial Vital Signs Initial Vital Signs: Vital Signs Temperature 97.9 F 07/06/23 12:04 Pulse Rate 70 07/06/23 12:04 Respiratory Rate 40 H 07/06/23 12:04 Blood Pressure 174/87 H 07/06/23 12:04 Pulse Oximetry 100 07/06/23 12:04 Oxygen Delivery Method Room Air 07/06/23 12:04 General: Older appearing, cachectic, comfortably in a gurney with fluent speech HEENT: Moist mucous membranes, normal sclera with reactive pupils, Respiratory: Lungs are clear to auscultation, no wheezing no rales no rhonchi. Full and symmetrical air movement Cardiac: Regular rate and rhythm no murmurs no bruits Abdomen: Soft, nontender, good bowel tones, no flank pain Skin: Warm and dry, no rashes Neurologic: Grossly neurologically intact with no obvious asymmetries or abnormalities Extremities: No trauma, well perfused Psych: Delusional thought process without pressured speech and is not responding to internal stimuli Course Orders Ordered: ED Orders 07/06/23 12:00 Complete Blood Count AUTO DIFF Stat Comprehensive Metabolic Panel Stat Lactate (Lactic Acid) Stat NT-proBNP (BNP-Adult 18+) Stat Prothrombin Time INR Stat Troponin I Stat 07/06/23 12:39 XR chest 1V Stat EKG-12 Lead Stat Measure peak expiratory flow ONCE RT Consult Eval and Treat NOW 07/06/23 14:13 Urinalysis and Microscopic Stat Urine Culture Stat Discontinued Medications Ceftriaxone Sodium 2,000 mg/ (Sodium Chloride) 100 mls @ 200 mls/hr IV NOW ONE Stop: 07/06/23 16:11 Vital Signs Vital signs: Vital Signs - 8 hr 07/06/23 12:04 07/06/23 12:09 07/06/23 12:30 Temperature 97.9 F Pulse Rate 70 64 68 Respiratory Rate 40 H 32 H 32 H Blood Pressure 174/87 H Pulse Oximetry 100 100 99 Oxygen Delivery Method Room Air 07/06/23 12:30 07/06/23 13:00 07/06/23 13:01 Temperature Pulse Rate 68 67 Respiratory Rate 27 H 25 H Blood Pressure 175/76 H Pulse Oximetry 99 99 Oxygen Delivery Method 07/06/23 13:01 07/06/23 13:30 07/06/23 13:31 Temperature Pulse Rate 95 H Respiratory Rate 31 H Blood Pressure 167/72 H 189/103 H Pulse Oximetry 99 Oxygen Delivery Method 07/06/23 13:31 07/06/23 14:00 07/06/23 14:00 Temperature Pulse Rate 73 82 Respiratory Rate 30 H 28 H Blood Pressure 193/86 H Pulse Oximetry 99 98 Oxygen Delivery Method 07/06/23 14:30 07/06/23 14:31 07/06/23 14:31 Temperature Pulse Rate 70 99 H Respiratory Rate 26 H 31 H Blood Pressure 161/80 H Pulse Oximetry 97 98 Oxygen Delivery Method 07/06/23 15:00 07/06/23 15:00 07/06/23 15:30 Temperature Pulse Rate 74 65 Respiratory Rate 32 H 31 H Blood Pressure 161/69 H Pulse Oximetry 98 98 Oxygen Delivery Method 07/06/23 15:30 Temperature Pulse Rate Respiratory Rate Blood Pressure 151/80 H Pulse Oximetry Oxygen Delivery Method Medical Decision Making Lab Data 07/06/23 12:00 07/06/23 12:00 Labs: Lab Results 07/06/23 07/06/23 Range/Units 12:00 14:13 WBC 7.9 (4.5-11.0) X10^3/uL RBC 4.64 (4.5-5.9) X10^6/uL Hgb 14.7 (13.5-17.5) g/dL Hct 42.9 (41-53) % MCV 92.6 (80-100) fL MCH 31.6 (26-34) PG MCHC 34.2 (30-36) % RDW 14.9 H (11.6-14.8) % Plt Count 307 (150-400) X10^3/uL Neut % (Auto) 64.0 (50-75) % Lymph % (Auto) 22.9 L (25-40) % [place] % (Auto) 8.9 (3-14) % Eos % (Auto) 3.6 (2-4) % Baso % (Auto) 0.6 (0-2) % Neut # (Auto) 5000 (1326-6819) /uL Lymph # (Auto) 1800 (6484-7401) /uL [place] # (Auto) 700 (0-900) /uL Eos # (Auto) 300 (0-450) /uL Baso # (Auto) 0 (0-100) /uL PT 12.6 H (9.4-12.5) SECONDS INR 1.1 (0.9-1.3) Sodium 138 (137-145) mmol/L Potassium 4.2 (3.4-5.1) mmol/L Chloride 108 H (98-107) mmol/L Carbon Dioxide 28 (22-32) mmol/L BUN 28 H (9-20) mg/dL Creatinine 0.77 (0.66-1.25) mg/dL Estimated GFR > 60 (>60) mL/min BUN/Creatinine Ratio 36.4 H (6-22) Glucose 93 (80-110) mg/dL Lactate 1.4 (0.7-2.1) mmol/L Calcium 9.2 (8.4-10.2) mg/dL Total Bilirubin 0.8 (0.2-1.3) mg/dL AST 30 (17-59) IU/L ALT 16 (<50) IU/L Alkaline Phosphatase 99 (38-126) U/L Troponin I < 0.012 (0.01-0.034) ng/mL NT-Pro-B Natriuret Pep 501 H (<450) pg/mL Total Protein 7.1 (6.3-8.2) g/dL Albumin 3.7 (3.5-5.0) g/dL Globulin 3.4 (1.7-4.1) g/dL Albumin/Globulin Ratio 1.1 (1.0-2.8) Urine Color Yellow Urine Appearance Clear Urine pH 7.0 (4.5-8.0) Ur Specific [place] 1.015 (1.000-1.035) Urine Protein Trace H (Negative) Urine Glucose (UA) Negative (Negative) g/dL Urine Ketones 1+ H (NEGATIVE) Urine Occult Blood Trace-intact (Negative) Urine Nitrate Negative (Negative) Urine Bilirubin Negative (NEGATIVE) Urine Urobilinogen 0.2 (0.2) E.U./dL Ur Leukocyte Esterase 2+ H (NEGATIVE) Urine RBC 0-1/hpf (0-5/HPF) Urine WBC 30-100/hpf H (0-5/HPF) Ur Squamous Epith Cells 0-1 /hpf (0-5/HPF) Urine Bacteria Many (>30) H (None) Ur Culture Indicated? Specimen cultured Vol Urine Centrifuged 10ml (spun) MDM Narrative Medical decision making narrative: CC: Demonic possession Complicating co-morbidities: Independent living, weight loss secondary to ?not cooking because of the demons?, possible urinary tract infection, failure to thrive with multiple EMS interventions and concerned family Data collected from: patient Social determinants of health that may influence the patients condition: Lives alone, significant psychiatric overlay with increasing delusional thinking and inability to care for self with significant failure to thrive. He is not actively homicidal. Not specifically suicidal Medical records reviewed: Urinalysis in April of 2023, March of 2023 and February of 2023 show multiple episodes of urinary tract infection with Citrobacter, E coli and Enterococcus. The Citrobacter was resistant to Augmentin and Bactrim but everything else has been pansensitive. Note from May 07 for very similar complaint is reviewed. Thorough workup including head CT was done at that time. Patient was diagnosed with a urinary tract infection and requested discharge. Was treated appropriately and discharged Differential considered: Delusional, sepsis, failure to thrive, urinary tract infection Exam documented above, pertinent findings include: Patient is frail, cachectic but aside from the delusional thought process regarding the demonic possession his exam is otherwise benign Lab Test results independently reviewed as above. Pertinent findings: Troponin is undetectable BNP is minimally elevated at 500 CBC is reassuring with no significant leukocytosis or anemia Chemistries show no life-threatening abnormalities and normal renal function Imaging studies independently reviewed: Chest x-ray is unremarkable today CT scan of the brain for similar presentation was done in on May 072023. With no new neurologic findings and exam done within last 2 months, it is not repeated today Consultations: Social work Dr Fu will admit patient. Has been trying to help this patient, communicating with the patient's sister as well as good friend. Community import export coordinator who has been checking on the patient is also available for consultation. Treatments: IV ceftriaxone Discussion: 82-year-old gentleman with progressive delusional symptoms interfering with self-care. He does have a concurrent urinary tract infection which likely is contributing however dementia, sleep deprivation and primary delusional disorder are all significant potentials for final diagnosis for this gentleman. At this point he is weak enough that he will stay in the hospital, will treat his urinary tract infection and continue to address the social concerns to see if we can find safe discharge plan for this gentleman. Discharge Plan Departure Patient Disposition: Admitted As Inpatient Clinical Impression: Delusional disorder, Acute UTI, Abnormal weight loss, Sleep deprivation Admit Date/Time: 07/06/23 16:24 Admit Provider: Gee Fu
--- NOTE | 2023-07-06 16:25 | P.HP_ITS ---
History of Present Illness History of Present Illness Date Patient Seen: 07/06/23 Time Patient Seen: 16:25 Chief complaint: Failure to thrive Narrative: chief complaint: niko This is a pleasant gentleman who lives alone with his cat Richard. Over the last month or so I have been attempting to treat him in the outpatient setting for a UTI which has not responded to oral antibiotics of several flavors although I am not confident he has been taking them reliably. He has complained that niko are plaguing his attempts to prepare meals and care for himself. No command auditory hallucinations reported but says they are loud and bang around in the room although they are invisible. NOK sister Susana who lives around here but cannot help him out much due to her mobility issues she cannot get into his trailer home. He came in today after 911 performed a wellness check when he canceled a follow up appointment today because he stated he was unable to clean himself up. Per EMS report he was pretty much lying in filth in the bed unable to address himself to cleaning himself up. ED intake revealed a continued UTI which at this point I am inclined to treat aggressively. He is cachectic and weak but denies any specific pain. He is hungry and feeling better after being cleaned up. He still endorses demons although none in the exam room at time of interview. He does have APS cases open on him for self neglect. [facility] Medical History Urinary tract infection History of orchitis Intermittent self-catheterization of bladder Lower urinary tract symptoms Bladder diverticulum High blood pressure BPH (benign prostatic hyperplasia) Chronic pain syndrome (Unknown) Shoulder pain, left (Unknown) Surgical History H/O cystoscopy History of hernia repair Status post insertion of spinal cord stimulator History of tonsillectomy Family History Father CAD in [place] artery History of BPH Mother Hypertension Social History marital status: number of children: 0 household members: none Smoking Status: Never smoker alcohol intake: current Type(s) of exercise: other frequency: 3-4 times per week Meds Home Medications and Allergies Home Medications Medication Instructions Recorded Confirmed Type docusate sodium 100 mg capsule 100 mg PO BID #60 caps 08/07/18 07/06/23 Rx (Colace) naproxen sodium 220 mg capsule 220 mg PO Q12H PRN Pain (Scale 01/26/22 07/06/23 History (Aleve) Score 1-3) nitrofurantoin 100 mg PO BID #20 caps 03/27/23 07/06/23 Rx monohydrate/macrocrystals 100 mg capsule Allergies Allergy/AdvReac Type Severity Reaction Status Date / Time No Known Drug Allergies Allergy Verified 04/20/23 09:06 Review of Systems Review of Systems Narrative: all systems reviewed and negative except as otherwise indicated in HPI. Exam Vital Signs (past 8 hours): - 07/06/23 12:04 07/06/23 12:09 07/06/23 12:30 Temperature 97.9 F Pulse Rate 70 64 68 Respiratory Rate 40 H 32 H 32 H Blood Pressure 174/87 H Pulse Oximetry 100 100 99 Oxygen Delivery Method Room Air 07/06/23 12:30 07/06/23 13:00 07/06/23 13:01 Temperature Pulse Rate 68 67 Respiratory Rate 27 H 25 H Blood Pressure 175/76 H Pulse Oximetry 99 99 Oxygen Delivery Method 07/06/23 13:01 07/06/23 13:30 07/06/23 13:31 Temperature Pulse Rate 95 H Respiratory Rate 31 H Blood Pressure 167/72 H 189/103 H Pulse Oximetry 99 Oxygen Delivery Method 07/06/23 13:31 07/06/23 14:00 07/06/23 14:00 Temperature Pulse Rate 73 82 Respiratory Rate 30 H 28 H Blood Pressure 193/86 H Pulse Oximetry 99 98 Oxygen Delivery Method 07/06/23 14:30 07/06/23 14:31 07/06/23 14:31 Temperature Pulse Rate 70 99 H Respiratory Rate 26 H 31 H Blood Pressure 161/80 H Pulse Oximetry 97 98 Oxygen Delivery Method 07/06/23 15:00 07/06/23 15:00 07/06/23 15:30 Temperature Pulse Rate 74 65 Respiratory Rate 32 H 31 H Blood Pressure 161/69 H Pulse Oximetry 98 98 Oxygen Delivery Method 07/06/23 15:30 Temperature Pulse Rate Respiratory Rate Blood Pressure 151/80 H Pulse Oximetry Oxygen Delivery Method Oxygen Delivery Method Room Air Narrative Exam Narrative: emaciated elder laying on hospital bed alert Const Nutritional Appearance: cachectic HENMT Head: normocephalic and atraumatic Resp Other: clear speech, clear to auscultation bilaterally Cardio Other: regular rate and rhythm s1/s2 minimal pedal edema GI Other: soft nontender active bowel sounds Skin Other: no rashes or lesions Neuro Other: alert awake conversant Extrem Other: moving all limbs equally no focal deficits or injuries Objective Labs 07/06/23 12:00 07/06/23 12:00 Labs: Laboratory Results - last 24 hr 07/06/23 07/06/23 12:00 14:13 WBC 7.9 RBC 4.64 Hgb 14.7 Hct 42.9 MCV 92.6 MCH 31.6 MCHC 34.2 RDW 14.9 H Plt Count 307 Neut % (Auto) 64.0 Lymph % (Auto) 22.9 L [place] % (Auto) 8.9 Eos % (Auto) 3.6 Baso % (Auto) 0.6 Neut # (Auto) 5000 Lymph # (Auto) 1800 [place] # (Auto) 700 Eos # (Auto) 300 Baso # (Auto) 0 PT 12.6 H INR 1.1 Sodium 138 Potassium 4.2 Chloride 108 H Carbon Dioxide 28 BUN 28 H Creatinine 0.77 Estimated GFR > 60 BUN/Creatinine Ratio 36.4 H Glucose 93 Lactate 1.4 Calcium 9.2 Total Bilirubin 0.8 AST 30 ALT 16 Alkaline Phosphatase 99 Troponin I < 0.012 NT-Pro-B Natriuret Pep 501 H Total Protein 7.1 Albumin 3.7 Globulin 3.4 Albumin/Globulin Ratio 1.1 Urine Color Yellow Urine Appearance Clear Urine pH 7.0 Ur Specific [place] 1.015 Urine Protein Trace H Urine Glucose (UA) Negative Urine Ketones 1+ H Urine Occult Blood Trace-intact Urine Nitrate Negative Urine Bilirubin Negative Urine Urobilinogen 0.2 Ur Leukocyte Esterase 2+ H Urine RBC 0-1/hpf Urine WBC 30-100/hpf H Ur Squamous Epith Cells 0-1 /hpf Urine Bacteria Many (>30) H Ur Culture Indicated? Specimen cultured Vol Urine Centrifuged 10ml (spun) Assessment & Plan Assessment & Plan narrative: 82yo M with UTI #UTI #encephalopathy vs delirium vs dementia with auditory hallucinations treating with rocephin and IVF culture pending #hyperchloremia #failure to thrive #elevated BNP #severe protein-calorie malnutrition encourage feeding ad dave, continue IVF PT/OT/CM eval I have concerns about him going home alone Dispo: pending clinical improvement Diet: general DVT: SCDs, encourage ambulation Code: DNR MDM: Sister Susana [phone]
[2023-07-06] MEDS: cefTRIAXone 2,000 MG in SODIUM CHLORIDE 0.9% 100 ML 200 MG IV (16:40)
[2023-07-06] MEDS: SODIUM CHLORIDE 0.9% 1,000 ML 88 ML IV (16:41)
--- NOTE | 2023-07-06 17:01 | CM.SWNOTE ---
ED BAGGAGE CLERK Note This BAGGAGE CLERK did not receive consult from patient from ED provider mathematics professor but was informed of patient by Community Paper Stripper Fausto Bartholomew. Patient is 82 y/o male who presents to ED via EMS due to concern for failure to thrive and there is concern for untreated UTI, patient's concern for demons in his home and concern for recent significant weight loss. Patient's PCP is Dr. Fu, patient has Medicare [facility]. It is reported that patient's friends visit patient every day to check in with patient and monitor patient's incontinence, clean up and assist patient as needed. Patient resides alone in [place], and has a sister that resides in [place]. Fausto Bartholomew reports that he has visited patient a few times but patient does not recall meeting Fausto. Fausto reports patient's concerns believing that there are demons in his home adjusting patient's thermostat. Fausto reports that APS is currently involved and investigating patient. Patient's PCP Dr. Fu admits patient to acute care due to concern for Acute UTI, Sleep deprivation, abnormal weight loss, and Delusional disorder. Plan: patient admitted to acute care, PCP to provide further treatment and evaluation, DCP to f/u with POC. JERRY Cruz
[2023-07-06] MEDS: QUETIAPINE 25 MG TABLET 12.5 MG PO (22:25)
[2023-07-07] VITALS: BP 118/58; PULSE 53; RESP 18; TEMP 36.3; O2SAT 95
[2023-07-07] MEDS: SODIUM CHLORIDE 0.9% 1,000 ML 88 ML IV (02:18)
[2023-07-07 05:32] LABS: Add Manual Diff / Slide Review NO; Basophils Absolute Auto 0 /uL (0-100); Basophils Percent Auto 0.7 % (0-2); Eosinophils Absolute Auto 500 /uL (0-450); Eosinophils Percent Auto 6.4 % (2-4); Hematocrit 39.2 % (41-53); Hemoglobin 13.4 g/dL (13.5-17.5); Lymphocytes Absolute Auto 2000 /uL (1100-4500); Lymphocytes Percent Auto 28.1 % (25-40); Mean Corpuscular HGB Conc 34.2 % (30-36); Mean Corpuscular Hemoglobin 31.6 PG (26-34); Mean Corpuscular Volume 92.4 fL (80-100); Monocytes Absolute Auto 600 /uL (0-900); Monocytes Percent Auto 8.7 % (3-14); Neutrophils Absolute Auto 4100 /uL (1500-7000); Neutrophils Percent Auto 56.1 % (50-75); Platelet Count 265 X10^3/uL (150-400); Red Blood Cell Count 4.25 X10^6/uL (4.5-5.9); Red Cell Distribution Width 14.5 % (11.6-14.8); White Blood Cell Count 7.2 X10^3/uL (4.5-11.0)
[2023-07-07 05:43] LABS: Alanine Aminotransferase 13 IU/L (<50); Albumin 3.1 g/dL (3.5-5.0); Alkaline Phosphatase 79 U/L (38-126); Aspartate Aminotransferase 24 IU/L (17-59); Bilirubin Total 0.6 mg/dL (0.2-1.3); Blood Urea Nitrogen 21 mg/dL (9-20); Calcium 8.5 mg/dL (8.4-10.2); Carbon Dioxide 24 mmol/L (22-32); Chloride 110 mmol/L (98-107); Estimated Glomerular Filt Rate > 60 mL/min (>60); Globulin 3.1 g/dL (1.7-4.1); Glucose 92 mg/dL (80-110); HEMOLYSIS < 15 (0-50); Potassium 3.9 mmol/L (3.4-5.1); Sodium 137 mmol/L (137-145); Total Protein 6.2 g/dL (6.3-8.2)
[2023-07-07 07:56] VITALS: BP 132/70; PULSE 56
[2023-07-07 08:36] VITALS: TEMP 36.2; O2SAT 97
[2023-07-07] MEDS: ENOXAPARIN 40 MG/0.4 ML SYRINGE SUBCUT (08:56)
[2023-07-07] MEDS: TAMSULOSIN 0.4 MG CAPSULE PO (11:08)
--- NOTE | 2023-07-07 11:25 | PT.IIE ---
Current Diagnoses Urinary tract infection, site not specified (07/06/23) Surgical History (Last Reviewed 05/08/23 @ 12:27 by Rosalee Dooley MD) H/O cystoscopy History of hernia repair History of tonsillectomy Status post insertion of spinal cord stimulator Medical History (Last Reviewed 05/08/23 @ 12:27 by Rosalee Dooley MD) Bladder diverticulum BPH (benign prostatic hyperplasia) Chronic pain syndrome (Unknown) High blood pressure History of orchitis Intermittent self-catheterization of bladder Lower urinary tract symptoms Shoulder pain, left (Unknown) Urinary tract infection Physical Therapy Inpatient Evaluation/Re-Eval M1 PT/OT-IP Prior Functional Status Start: 07/07/23 12:53 Freq: NEEDED Status: Active Protocol: Document 07/07/23 11:25 AB (Rec: 07/07/23 13:09 AB [id number]) Medical Review Prior Functional Status Medical History Reviewed Yes Communication able to make needs known Mobility and Gait pt stated that he was independent with all mobilities and ambulation without AD Social History Household Members none Living Arrangements Mobile home Number of Floors (Floors) One Floor Number of Stairs To Enter/Railing? 10 steps with wide bilateral rails and only able to hold on one rail at a time Home Environment Standard Height Toilet,Tub/ Shower Home Equipment Hand Held Shower M2 PT-IP Current Condition Start: 07/07/23 12:53 Freq: NEEDED Status: Active Protocol: Document 07/07/23 11:25 AB (Rec: 07/07/23 13:09 AB [id number]) Physical Therapy Current Condition Current Condition Evaluation Date 07/07/23 Treatment Diagnosis UTI; failure to thrive; difficulty in walking Onset Date 07/06/23 M3 PT-IP Subjective Start: 07/07/23 12:53 Freq: NEEDED Status: Active Protocol: Document 07/07/23 11:25 AB (Rec: 07/07/23 13:09 AB [id number]) Subjective Physical Therapy Visit Type Type Initial Evaluation Visit Start Time 11:25 Visit Stop Time 11:45 Number of TRACK REPAIRER HELPER Visits 0 Physical Therapy Visit Comments Patient Comments agreeable to do PT Therapy Pain Assessment Pain Present Pain Present Denied Pain M4 PT-IP Mobility and Gait Start: 07/07/23 12:53 Freq: NEEDED Status: Active Protocol: Document 07/07/23 11:25 AB (Rec: 07/07/23 13:09 AB [id number]) PT-Bed Mobility Assessment Supine to Sit Supine to Sit Standby Assistance PT-Transfer Assessment Sit to and From Stand Sit to and from Stand Contact Guard Assistance,1 Person Assistance,Use of Upper Extremities Equipment Transfer Assistive Device None,Gait Belt,Front Wheeled Walker Orthotic/Prosthetic Devices or Brace: No Transfers Transfer Destination Chair Transfer Technique ambulated Transfer Ability Level of Assist Contact Guard Assistance, Minimal Assistance,1 Person Assistance,Use of Upper Extremities Comments Mobility Comments pt supine in bed and agreeable to do PT. obtained PLOF and home set up from pt. pt completed supine to sit SBA . able to sit on EOB SBA. no c /o dizziness. completed sit to stand CGA and ambulated in room using FWW ~ 30 ft. pt tends to lift and carry FWW with him during ambulation. Assessed ambulation without AD and completed ~ 50 ft CGA to min A with unsteady gait and slight LOB during turns with increase lateral trunk lean to the R requiring min A for steadiness and safety. pt sat on the chair. educated on safety and slowing down during ambulation. pt agreed to stay seated on the chair. positioned pt on the chair. call light and table placed within reach. informed NAC that pt will need a chair alarm. Gait Assessment Gait Gait Assistance Required: Contact Guard Assist,Minimum Assistance,1 Person Assist Distance (Feet) 50 Able to Maintain Weight Bearing Status Yes During Gait Assistive Devices Assistive Device None,Gait Belt,Front Wheeled Walker Orthotic/Prosthetic Devices or Brace: No Gait Deviations General Gait Pattern Antalgic,Decreased Stride Length,Decreased Feet Clearance,Flexed Trunk Factors Limiting Gait Function Factors Limiting Gait Function Decreased Activity Tolerance, Decreased Strength,Difficulty Following Directions,Poor Balance,Poor Safety Awareness PT-Balance Assessment Sitting Balance and Reactions Static Sitting Balance Ability Normal Dynamic Sitting Balance Ability Good Standing Balance and Reactions Static Standing Balance Ability Good Dynamic Standing Balance Ability Fair Device Used without AD M5 PT-IP Objective Assessments Start: 07/07/23 12:53 Freq: NEEDED Status: Active Protocol: Document 07/07/23 11:25 AB (Rec: 07/07/23 13:09 [id number]) Orientation Orientation/Cognition Level of Alertness Alert Orientation Name,Place,Situation Language Function Ability No Deficits Noted Safety Awareness Decreased Safety Awareness Memory Description Short Term Impaired Gross Range of Motion Lower Extremity ROM Assessment Within Functional Limits Strength Lower Extremity Strength Assessment Within Functional Limits Sensation Assessment Sensation Gross Sensation WNL Muscle Tone Muscle Tone WNL Yes M6 PT-IP Treatment Start: 07/07/23 12:53 Freq: NEEDED Status: Active Protocol: Document 07/07/23 11:25 AB (Rec: 07/07/23 13:09 AB [id number]) Physical Therapy Treatment Education Education Provided Safety M7 PT-IP Assessment and Plan Start: 07/07/23 12:53 Freq: NEEDED Status: Active Protocol: Document 07/07/23 11:25 AB (Rec: 07/07/23 13:09 AB [id number]) PT Summary Assessment and Plan Potential Rehabilitation Potential Fair Status of Condition at Evaluation Evolving Summary Impairments Pain,ROM,Strength,Balance, Coordination,Cognition,Bed Mobility,Transfers,Gait, Activity Tolerance Assessment Summary pt is an 82 y/o M who was brought in to the ED by medics after a welfare check on pt and found to have in dishelved manner. pt admitted for UTI and failure to thrive. pt requiring SBA for bed mobility , CGA for transfers and ambulation using fWW. Assessed ambulation without AD and pt completed requiring CGA to min A with (+) LOB. pt with decrease safety awareness and will need assistance at home. d/c plan depending on progress but at this time, may need SNF rehab. will continue to assess progress. Goals Bed Mobility Goal Independent Transfer Goal Independent,Front Wheeled Walker Gait Goal Independent,Front Wheel Walker Gait Distance 200 Other Goals improve transfers and ambulation without AD/LRAD 300 ft mod I up/down 10 steps 1 rail mod I Days to Meet Goals 10 Frequency of Treatment Frequency Of Treatment Once a Day Treatment Plan Physical Therapy Treatment Plan Bed Mobility Training,Transfer Training,Gait Training, Therapeutic Exercise,Balance Retraining,Discharge Planning, Hot or Cold Pack,Neuromuscular Re-ed,Coordination Retraining Precautions Other Precautions falls Recommendations To Nursing Amount of Assist Needed 1 Person Assist Discharge Recommendations PT Discharge Recommendations Home with Assistance,Home Health,SNF Rehab,Home vs SNF Equipment Needed for Home Before FWW if not safe without AD Discharge Transportation Needs at Discharge Private Vehicle,Wheelchair/ Cabulance
--- NOTE | 2023-07-07 11:32 | DIET.CONS ---
Addendum entered by Richa Cherry 07/07/23 16:57: Interventions: 1. CENSUS TAKER to discuss options for helping meet pt needs 2. Reviewed protein sources 2. Ordered Ensure Clear BID 3. Encouraged adequate intake Original Note: Dietary Consultation Note Admission Date: 07/06/2023 16:24 Assessment: 82 y M admitted with UTI/failure to thrive. Nutrition screened for low MNA. Met with pt at bedside. Reports low appetite here and at home since end of summer due to difficulty cooking relating to demons interfering with temperature settings and reported difficulty affording foods and obtaining foods. Recently began meals on wheels w/ delivery for lunch. Noted pt doesn't like taste of regular Ensures, but open to trying Ensure clears. Dietary recall: B-cereal and milk, sometimes a piece of toast L-last 2 days before hospital had been getting Meals on Wheels melons, bread Nutrition focused physical exam performed: Muscle loss: -Severe loss in temporalis -Severe loss in clavicle region -Severe loss in interosseous Subcutaneous fat loss: -Severe loss in orbital fat pads -Severe loss in buccal region Ht: 182.88 cm Wt: 61.5 kg BMI: 18.3 UBW: 68.039 kg per chart review on 04/20/23 (10.9% weight loss within 3 months, severe); 84 kg per pt report end of summer 2022 Last BM: 07/07/23 (07/07/23 11:01) MNA: 2 Frank Score: 13 Diet: 07/06/23 Dinner General (Regular) Diet Diet Modifications: snacks ad dave Food Texture: Level 7 - Regular Liquid Consistency: Level 0 - Thin Nutrition Percent Meal Consumed 100% 07/07/23 09:03 Labs: RBC 4.25 X10^6/uL (4.5-5.9) L 07/07/23 05:02 Hgb 13.4 g/dL (13.5-17.5) L 07/07/23 05:02 Hct 39.2 % (41-53) L 07/07/23 05:02 Creatinine 0.70 mg/dL (0.66-1.25) 07/07/23 05:02 Lactate 1.4 mmol/L (0.7-2.1) 07/06/23 12:00 NT-Pro-B Natriuret Pep 501 pg/mL (<450) H 07/06/23 12:00 Nutrition Diagnosis: 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 The patient is at much higher risk for medical and surgical complications because of their malnutrition. This increases the difficulty and complexity of medical and surgical interventions and increases the chances of poor outcomes such as morbidity and mortality. Interventions: 1. Discussed low cost protein and high kcal options that don't involve cooking, discussed food pantries briefly. 2. Ordered Ensure Clear BID 3. Encouraged adequate intake EER: 9199-8447 kcals/day (30-33 kcals/kg) 95-105 g protein/day (1.5 g/kg) Monitoring/Evaluations: PO intake, ONS tolerance, weight, f/u in 3 days Electronically Signed by: Richa Cherry 07/07/23 11:32 Clinical Dietitian [address] [address]
[2023-07-07 13:03] VITALS: BP 131/67; PULSE 64; RESP 18; TEMP 36.6; O2SAT 98
--- NOTE | 2023-07-07 15:16 | P.PN_ITS ---
Subjective Subjective Date Patient Seen: 07/07/23 Time Patient Seen: 08:30 Interval history: CC: uti Pt did not get a lot of sleep last night reports the demons found him again. Having some issues with urination this morning since condom cath was removed. He is pleasant and conversant today and oriented to general date and situation. Exam Vital Signs (past 8 hours): - 07/07/23 07:56 07/07/23 08:36 07/07/23 13:03 Temperature 97.2 F L 97.9 F Pulse Rate 56 L 64 Respiratory Rate 18 Blood Pressure 132/70 131/67 Pulse Oximetry 97 98 Oxygen Flow Rate 0 0 Oxygen Delivery Method Room Air Oxygen Flow Rate 0 Narrative Exam Narrative: gaunt elder laying in bed alert Const Nutritional Appearance: cachectic HENMT Other: normocephalic/atraumatic/buccal wasting evident Eyes Other: EOMI Resp Other: clear to auscultation bilaterally Cardio Other: regular rate and rhythm no pedal edema GI Other: soft nontender nondistended active bowel movements Other: indicates some issue at the base of his penis feels like a blockage. clear yellow urine in discarded cath bag. Neuro General: patient alert, patient awake, patient oriented x3 and moves all extremities Psych Speech and Movement: speech and movement normal Mood: congruent mood Affect: normal affect Other: endorses continued presence of demons last night but not at the moment. invisible but loud, making banging noises, not saying anything intelligible. Objective Labs 07/07/23 05:02 07/07/23 05:02 Labs: Laboratory Results - last 24 hr 07/06/23 07/07/23 14:13 05:02 WBC 7.2 RBC 4.25 L Hgb 13.4 L Hct 39.2 L MCV 92.4 MCH 31.6 MCHC 34.2 RDW 14.5 Plt Count 265 Neut % (Auto) 56.1 Lymph % (Auto) 28.1 [place] % (Auto) 8.7 Eos % (Auto) 6.4 H Baso % (Auto) 0.7 Neut # (Auto) 4100 Lymph # (Auto) 2000 [place] # (Auto) 600 Eos # (Auto) 500 H Baso # (Auto) 0 Sodium 137 Potassium 3.9 Chloride 110 H Carbon Dioxide 24 BUN 21 H Creatinine 0.70 Estimated GFR > 60 BUN/Creatinine Ratio 30.0 H Glucose 92 Calcium 8.5 Total Bilirubin 0.6 AST 24 ALT 13 Alkaline Phosphatase 79 Total Protein 6.2 L Albumin 3.1 L Globulin 3.1 Albumin/Globulin Ratio 1.0 Urine Color Yellow Urine Appearance Clear Urine pH 7.0 Ur Specific [place] 1.015 Urine Protein Trace H Urine Glucose (UA) Negative Urine Ketones 1+ H Urine Occult Blood Trace-intact Urine Nitrate Negative Urine Bilirubin Negative Urine Urobilinogen 0.2 Ur Leukocyte Esterase 2+ H Urine RBC 0-1/hpf Urine WBC 30-100/hpf H Ur Squamous Epith Cells 0-1 /hpf Urine Bacteria Many (>30) H Ur Culture Indicated? Specimen cultured Vol Urine Centrifuged 10ml (spun) PFSH Medical History Urinary tract infection History of orchitis Intermittent self-catheterization of bladder Lower urinary tract symptoms Bladder diverticulum High blood pressure BPH (benign prostatic hyperplasia) Chronic pain syndrome (Unknown) Shoulder pain, left (Unknown) Surgical History H/O cystoscopy History of hernia repair Status post insertion of spinal cord stimulator History of tonsillectomy Family History Father CAD in [place] artery History of BPH Mother Hypertension Social History marital status: number of children: 0 household members: none Smoking Status: Never smoker alcohol intake: current Type(s) of exercise: other frequency: 3-4 times per week Assessment & Plan Assessment & Plan narrative: 82yo M with UTI #UTI #encephalopathy vs delirium vs dementia with auditory hallucinations treating with rocephin and IVF culture pending but bacteriuria evident PT/OT workup suggesting SNF/rehab which I think would be a fine idea continue seroquel qhs #hyperchloremia #failure to thrive #elevated BNP #severe protein-calorie malnutrition encourage feeding ad dave, continue IVF PT/OT/CM eval I have concerns about him going home alone #urinary obstruction flomax, cath prn Dispo: pending clinical improvement, likely rehab/placement Diet: general PCP: Nickie DVT: SCDs, encourage ambulation Code: DNR MDM: Sister Susana [phone] Quality VTE Deep Vein Thrombosis/Pulmonary Embolism Present on Admission: No
--- NOTE | 2023-07-07 15:28 | CM.DANOTE ---
Initial DCP Assessment Visit Note Reviewed EMR and team rounds for pt's medical status and updates. Pt is too mentally altered and disoriented at this time to talk with him. Spoke with his concerned neighbors, who were here visiting him (and have provided emergency care for him), as well as called his sister, Mel, to discuss their concerns and goals for discharge once he's medically stable. Pt has been living in his own home independently until the last year or so, per sister, until he began having recurrent UTI's due to self-cathing for urinary retention. He has since decompensated significantly, has not been able to care for himself or his home, and multiple EMS visits have been made to the home, and multiple APS reports have been made by his sister and neighbors for failure to thrive. He becomes severely psychotic with each UTI, and is hallucinating daily that his home has been taken over by demons, that they have possessed his cat, and that they prevent him from self-hygiene or taking care of himself. The demons reportedly don't tell him to harm himself or others, but interfere only with him. He feels that the demons have followed him to the hospital, and has been paranoid/delusional about staff and disoriented to where he's at. Payor: Medicare PCP: Dr. Fu Pt is a 82 year-old M with multiple presentations to the ED for recurrent UTI's, altered mental status, failure to thrive. He presented to the ED last evening via EMS after neighbors found him in his bed covered in stool and urine, he was unable to get out of bed, had experienced a 40-lb weight loss over the last few months, is no longer able to care for himself or his home due to UTI causing altered mental status to the point where he has been persistently delusional and hallucinating. He is incontinent but refuse to wear an adult brief, and neighbors have needed to come over daily to help clean him up due to incontinence of both stool and urine. ED evaluation found him to have another UTI. IV ABO's and fluids were started in the ED, and pt was admitted to the floor for continued evaluation and tx. He has required PRN Seroquel to relieve agitation secondary to hallucinations/delusions, however he is not on this at baseline. Plan is for this MIRROR INSPECTOR to meet with pt's sister tomorrow, Friday 07/07, to discuss in-home caregiving resources and additional community supports available. He will need SNF rehab at d/c from inpt, however, his sister acknowledges that he needs long-term care assistance. He reportedly has the funds for this, and has been adamant in the past about never wanting to go to a SNF for long-term placement. Plan to make a new APS report tomorrow to update them on pt's continued decompensated status. DCP will also continue to follow and assist with final d/c disposition and long-term safety plan. Discharge Planning/Care Management CM Discharge Assessment Start: 07/07/23 14:27 Freq: Status: Active Protocol: Document 07/07/23 14:27 DPL (Rec: 07/07/23 14:30 DPL [id number]) Discharge Planning Assessment Assigned Hospital Nursing Assistant ARNOLDO Palmer Advance Directives? Yes: POLST Advance Directives on File Yes History Provided By Family Member,Friend,Medical Record Expected Length of Stay 3 Has Patient been admitted in last 30 No days? Prior Living Arrangements Mobile home Household Members none Type of transporation used prior to Drives own vehicle admit Independent with ADL's No: Recently decompensated and is no longer independent. Is patient alert and oriented? No: Pt has altered mental status, delusional and hallucinating. Needs Assistance With Bathing,Grooming,Meal Prep, Toileting,Managing Medications ,Home Chores / Shopping Caregiver for Another No Comment No DME at baseline. Patient/Family Preference Half-Way Facility Barriers to Discharge Yes Comment No plan for safe d/c from a SNF post-discarge. This MIRROR INSPECTOR is working with the family on a long-term care plan. Discharge Plan Half-Way Facility Community Services Physical Therapy,Occupational Therapy Referrals Initiated Half-Way If patient plan is SNF: Has PASSR been No completed? Inpatient Status as of 07/06/23 Whiteboard Updated in Patient Room with Yes name and ext. # of Hospital Nursing Assistant Review Status In Process Please Provide Date Initial DC 07/07/23 Assessment Was Performed
--- NOTE | 2023-07-07 15:38 | OT.IP.EVAL ---
Current Diagnoses Urinary tract infection, site not specified (07/06/23) Past Medical History (Last Reviewed 05/08/23 @ 12:27 by Rosalee Dooley MD) Bladder diverticulum BPH (benign prostatic hyperplasia) Chronic pain syndrome (Unknown) High blood pressure History of orchitis Intermittent self-catheterization of bladder Lower urinary tract symptoms Shoulder pain, left (Unknown) Urinary tract infection Surgical History (Last Reviewed 05/08/23 @ 12:27 by Rosalee Dooley MD) H/O cystoscopy History of hernia repair History of tonsillectomy Status post insertion of spinal cord stimulator Occupational Therapy Inpatient Evaluation/Re-Eval M1 PT/OT-IP Prior Functional Status Start: 07/07/23 16:49 Freq: NEEDED Status: Active Protocol: Document 07/07/23 14:45 [facility] (Rec: 07/07/23 17:24 [facility] [id number]) Medical Review Prior Functional Status Medical History Reviewed Yes Communication able to make needs known Mobility and Gait pt stated that he was independent with all mobilities and ambulation without AD Activities of Daily Living and IADL's Pt insists that he is able to care for himself and close to his baseline. Social History Household Members none Living Arrangements Mobile home Home Environment Standard Height Toilet,Tub/ Shower Home Equipment Hand Held Shower M2 OT-IP Current Condition Start: 07/07/23 16:49 Freq: Status: Active Protocol: Document 07/07/23 14:45 [facility] (Rec: 07/07/23 17:24 [facility] [id number]) Occupational Therapy Current Condition Current Condition Evaluation Date 07/07/23 Treatment Diagnosis Failure to Thrive, UTI Diagnosis Onset Date 07/07/23 M3 OT- IP Subjective and Pain Start: 07/07/23 16:49 Freq: Status: Active Protocol: Document 07/07/23 14:45 [facility] (Rec: 07/07/23 17:24 [facility] [id number]) OT- Subjective Occupational Therapy Visit Type Type Initial Evaluation Visit Start Time 14:45 Visit Stop Time 15:38 Occupational Therapy Visit Comments Patient Comments Pt agreed to get up to use the bathroom. Patient/Caregiver Goals To go home. OT Pain Assessment Pain When Pain Assessed During Mobility Pain Present Pain Present Pain Reported Location Left Ribs Description Tender Pain Behaviors Guarding,Holding Area M4 OT- IP ADL's Start: 07/07/23 16:49 Freq: Status: Active Protocol: Document 07/07/23 14:45 [facility] (Rec: 07/07/23 17:24 [facility] [id number]) OT [id number] Comments OT Self-Feeding Comments Not at meal time. OT ADL-Grooming Comments OT Grooming Comments Pt needing assist to help point out the soap so able to wash his hands. OT ADL-Oral Care Comments Oral Care Comments Not at meal time. OT ADL-Dressing General Eval Lower Body Dressing Ability Standby Assistance Comments OT Dressing Comments Pt able to rafaela/doff his socks with increased time while seated. OT ADL-Toileting General Evaluation Toileting Ability Maximum Assistance Areas Needing Assistance Manage Clothing,Perform Perineal Hygiene Comments OT Toileting Comments Assist to get the brief over his feet and assist for completeness to wipe as pt unaware bowels getting on his hands when wiping. OT ADL-Bathing Comments OT Bathing Comments Nursing aid states having to assist pt earlier mainly due to decreased safety awareness and for completeness. M5 OT- IP IADL's Start: 07/07/23 16:49 Freq: Status: Active Protocol: Document 07/07/23 14:45 [facility] (Rec: 07/07/23 17:24 [facility] [id number]) OT-Instrumental Activities of Daily Living Deficits IADL Deficits Identified Deficits Home Safety Awareness Awareness of Need for Assistance at Home Good Awareness Ability to Problem Solve Emergency Unable to Problem Solve Situations Medication Management Medication Management Comments Pt states just take the pills out of the pill bottles. Money Management Money Management Comments Pt states just writes check as his bills come in. Meal Preparation Meal Preparation Comments Per pt's medical chart, pt has lose 40lbs in the last few months. Pt will need assist. Ditch Cleaner Ditch Cleaner Comments Pt will need assist. Driving Driving Concerns Identified Regarding Safety M6 OT- IP Functional Cognition Start: 07/07/23 16:49 Freq: Status: Active Protocol: Document 07/07/23 14:45 [facility] (Rec: 07/07/23 17:24 [facility] [id number]) Cognitive Factors Limiting Selfcare Function Cognitive Ability Level of Alertness Confusional State Patient Orientation Name,Age,Birthday,Month,Year, Day of Week,Place,Situation Attention Span Ability Capable of Focused Attention, Capable of Sustained Attention Ability to Follow Commands Able to Follow One Step Commands with Increased Time, Able to Follow One Step Commands with Repetition Memory Description Short Term Impaired,Working Impaired Safety Awareness Underestimates Need for Assistance Problem Solving Ability Unable to Identify Errors, Needs Assist to Identify Solutions Executive Function Ability Unable to Filter Distractions, Unable to Organize Plans, Unable to Remember Details Cognitive Tests SLUMS Pt scored 22/30 which implies mild neurocognitive deficits and able to recall 3/5 objects , not able to draw the number on the clock and hour hands, able to recall 3/4 questions after paragraph read. Pt needing increased time to complete the assessment and having to repeat the questions multiple times. Cognitive Comments Cognitive Assessment Comments Pt unable to complete [place] Making Part B which implies severe impairments for visual attention, speed of processing , mental flexibility, executive functioning, and task switching. Pt insist that he can drive even though suggested pt not drive. Pt is very forgetful, decreased safety awareness, and impulsive. Pt also has UTI which may also be affecting his cognitive status. When doing light touch, pt having trouble with word finding at times and states leg when touching his left shoulder. OT- Vision and Hearing OT- Hearing Assessment OT- Hearing Assessment WFL OT- Vision Assessment Visual Acuity WFL Visual Attentiveness Impaired Occular Pursuits Impaired Horizontal Vision Assessment Comments Pt is very inconsistent at times able to track and other times, eyes just staring. Pt does appear to have decreased peripheral vision L>R eye. Would be beneficial to reassess pt. M7 OT- IP Mobility and Balance Start: 07/07/23 16:49 Freq: Status: Active Protocol: Document 07/07/23 14:45 [facility] (Rec: 07/07/23 17:24 [facility] [id number]) OT-Transfer Assessment Sit to and From Stand Sit to and from Stand Contact Guard Assistance Transfers Transfer Ability Contact Guard Assistance Technique Transfer Destination Bed,Chair,Toilet Transfer Technique Stand Step Pivot Devices Transfer Assistive Devices Gait Belt Comments Mobility Comments CGA as pt a little unsteady on his feet with no use of device at this time. OT- Balance Assessment Sitting Balance and Reactions Static Sitting Balance Ability Normal Dynamic Sitting Balance Ability Good Standing Balance and Reactions Static Standing Balance Ability Good Dynamic Standing Balance Ability Fair M8 OT- IP Objective Assessments Start: 07/07/23 16:49 Freq: Status: Active Protocol: Document 07/07/23 14:45 [facility] (Rec: 07/07/23 17:24 [facility] [id number]) OT Gross Range of Motion Upper Extremity Range of Motion Assessment Left Impaired ROM Impairments LUE due to old rib fracture 0- 95 shoulder flexion. OT Strength Comments Strength Comments RUE 4/5, LUE elbow to distal 4 /5 NT at left shoulder due to pain. OT- Coordination Assessment Upper Extremity Finger to Nose Test Bilateral UE Impaired Finger Tapping Test Bilateral UE Impaired Comments Coordination Comments Pt slightly off for all and tremors with his hands. OT Sensation Assessment Comments Summary Comments Pt having difficulty to get the words out and understand the directions. M9 OT- IP Assessment and Plan Start: 07/07/23 16:49 Freq: Status: Active Protocol: Document 07/07/23 14:45 [facility] (Rec: 07/07/23 17:24 [facility] [id number]) OT Summary Assessment and Plan Potential Rehabilitation Potential Fair Analytic Complexity at Evaluation Moderate Summary OT Impairments Pain,Range of Motion,Strength, Balance,Coordination,Sensation ,Functional Cognition, Functional Mobility,Self- Feeding,Grooming,Dressing, Toileting,Bathing,Toilet Transfers,Shower Transfers, Activity Tolerance Progress Towards Goals Slow Progress due to Pain,Slow Progress due to Medical Issues,Slow Progress due to Activity Tolerance,Slow Progress due to Cognition Assessment Summary Pt MOD complexity and main barriers are decreased dynamic balance, decreased safety awareness and cognition which may be impacted from his UTI, and not needing assist for ADl and mobility needs. Per chart pt has lastly been having to have a neighbor assist to help clean him up due to his incontinence issues. Pt will benefit from skilled rehab to maximize his level of independence and safety , but ultimately will benefit from LTC/memory care. Goals Grooming Goal Independent Dressing Goal Independent Toileting Goal Standby Assistance Bathing Goal Standby Assistance Toilet Transfer Goal Independent Shower Transfer Goal Independent Days to Meet Goals 10 Frequency of Treatment Frequency Of Treatment Once a Day Treatment Plan OT Treatment Plan ADL Training,Functional Cognition Training,Functional Mobility,Patient/Family Education,Discharge Planning Other Treatment Recommendations and Next reassess pt's vision, shower Treatment Focus Discharge Recommendations OT Discharge Recommendations SNF Rehab,LTAC Transportation Needs at Discharge Private Vehicle,Wheelchair/ Cabulance
[2023-07-07] MEDS: cefTRIAXone 2,000 MG in SODIUM CHLORIDE 0.9% 100 ML 200 MG IV (17:04)
[2023-07-07] MEDS: QUETIAPINE 25 MG TABLET PO (20:15)
[2023-07-08 00:43] VITALS: BP 133/68; PULSE 63; RESP 16; TEMP 36.1; O2SAT 97
[2023-07-08 05:58] LABS: Add Manual Diff / Slide Review NO; Basophils Absolute Auto 100 /uL (0-100); Basophils Percent Auto 1.1 % (0-2); Eosinophils Absolute Auto 500 /uL (0-450); Eosinophils Percent Auto 8.3 % (2-4); Hematocrit 36.1 % (41-53); Hemoglobin 12.3 g/dL (13.5-17.5); Lymphocytes Absolute Auto 2300 /uL (1100-4500); Lymphocytes Percent Auto 35.8 % (25-40); Mean Corpuscular Hemoglobin 31.4 PG (26-34); Mean Corpuscular Volume 92.4 fL (80-100); Monocytes Absolute Auto 600 /uL (0-900); Monocytes Percent Auto 9.9 % (3-14); Neutrophils Absolute Auto 2900 /uL (1500-7000); Neutrophils Percent Auto 44.9 % (50-75); Platelet Count 244 X10^3/uL (150-400); Red Blood Cell Count 3.91 X10^6/uL (4.5-5.9); Red Cell Distribution Width 14.8 % (11.6-14.8); White Blood Cell Count 6.4 X10^3/uL (4.5-11.0)
[2023-07-08 06:13] LABS: Alanine Aminotransferase 18 IU/L (<50); Albumin 2.9 g/dL (3.5-5.0); Alkaline Phosphatase 71 U/L (38-126); Aspartate Aminotransferase 29 IU/L (17-59); BUN Creatinine Ratio 28.9 (6-22); Bilirubin Total 0.4 mg/dL (0.2-1.3); Blood Urea Nitrogen 24 mg/dL (9-20); Calcium 8.4 mg/dL (8.4-10.2); Carbon Dioxide 22 mmol/L (22-32); Chloride 111 mmol/L (98-107); Estimated Glomerular Filt Rate > 60 mL/min (>60); Globulin 2.9 g/dL (1.7-4.1); Glucose 83 mg/dL (80-110); HEMOLYSIS 17 (0-50); Potassium 3.9 mmol/L (3.4-5.1); Sodium 138 mmol/L (137-145); Total Protein 5.8 g/dL (6.3-8.2)
[2023-07-08] MEDS: ENOXAPARIN 40 MG/0.4 ML SYRINGE SUBCUT (09:17)
--- NOTE | 2023-07-08 10:10 | PM.PN.1 ---
Subjective Subjective Date Patient Seen: 07/08/23 Time Patient Seen: 10:10 Interval history: Patient seen and evaluated this morning discussed care with his nurse. Laboratory tests were reviewed. Stable out hemoglobin hematocrit shows mild anemia. Normal kidney function. Patient is alert and arousable to me answers simple questions he is on sure of the date and time. He knows he is in [place]. Was up this morning walking fairly stable when he was walking with the assistance of the nursing staff. Eating has been decreased. Urine output has been stable. No fever. No hyper tension. Exam Vital Signs (past 8 hours): Oxygen Delivery Method Room Air Oxygen Flow Rate 0 Narrative Exam Narrative: ?Gen.: Patient is alert he is awakened from sleep he is oriented to person not time HEENT: pupils equal round and reactive or mucosa is moist some features of masslike facies Cardio: S1-S2 regular rate and rhythm Respiratory: Lungs are clear to auscultation no wheezes or crackles normal respiratory effort. Abdomen: Soft nontender no rebound or guarding no liver spleen enlargement no appreciable hernias Extremities: generalized weakness some tremor rigidity Objective Labs 07/08/23 05:40 07/08/23 05:40 Labs: Laboratory Results - last 24 hr 07/08/23 05:40 WBC 6.4 RBC 3.91 L Hgb 12.3 L Hct 36.1 L MCV 92.4 MCH 31.4 MCHC 34.0 RDW 14.8 Plt Count 244 Neut % (Auto) 44.9 L Lymph % (Auto) 35.8 Mcculloch % (Auto) 9.9 Eos % (Auto) 8.3 H Baso % (Auto) 1.1 Neut # (Auto) 2900 Lymph # (Auto) 2300 Mcculloch # (Auto) 600 Eos # (Auto) 500 H Baso # (Auto) 100 Sodium 138 Potassium 3.9 Chloride 111 H Carbon Dioxide 22 BUN 24 H Creatinine 0.83 Estimated GFR > 60 BUN/Creatinine Ratio 28.9 H Glucose 83 Calcium 8.4 Total Bilirubin 0.4 AST 29 ALT 18 Alkaline Phosphatase 71 Total Protein 5.8 L Albumin 2.9 L Globulin 2.9 Albumin/Globulin Ratio 1.0 PFSH Medical History Urinary tract infection History of orchitis Intermittent self-catheterization of bladder Lower urinary tract symptoms Bladder diverticulum High blood pressure BPH (benign prostatic hyperplasia) Chronic pain syndrome (Unknown) Shoulder pain, left (Unknown) Surgical History H/O cystoscopy History of hernia repair Status post insertion of spinal cord stimulator History of tonsillectomy Family History Father CAD in [place] artery History of BPH Mother Hypertension Social History marital status: number of children: 0 household members: none Smoking Status: Never smoker alcohol intake: current Type(s) of exercise: other frequency: 3-4 times per week Assessment & Plan Assessment and plan (1) Acute UTI: Status: Acute Plan urinary tract infection history of urinary obstruction. And self catheterization. Urinalysis shows no growth to date. He is currently on ceftriaxone 2000 mg Q 24 hours will decrease that to Omnicef 300 mg orally at this time. CT scan shows urinary bladder diverticulum no stones Encephalopathy. Patient with mental status changes consistent with encephalopathy. Thought initially due to urinary tract infection. Patient has been feeling at home. Patient has rigidity and bradykinesia. Some mild resting tremor. He also has hallucinations. Question of dementia with Lewy body are Parkinson's 2+ with Lewy body currently getting Seroquel at night. Would probably benefit from a cholinesterase inhibitor. He has on a small dose of Seroquel which will continue now. Unsure if it has helping a not at this point. Moderate to severe protein calorie malnutrition. Nutritional consult will be obtained. Resource drinks and general diet provided. Apparently patient has had a significant weight loss of 40 lb. Patient shows sign of significant muscular wasting on exam. Cerebrovascular accident. Previous CT scan shows lacunar infarct. Will make sure he has on an aspirin. He has currently not on a statin may not be appropriate due to his calorie malnutrition. DVT prophylaxis Code status DNR Disposition plan. Work on social media specialist evaluation and consultation for safe discharge to detention facility Quality VTE Deep Vein Thrombosis/Pulmonary Embolism Present on Admission: No
--- NOTE | 2023-07-08 10:25 | PC.NURSE ---
Pt up out of bed quickly, impulsive. Re-directable. Up to BR. jules activity well. Bed linens changed , Pt cleaned up and resettled to bed. Pt sleeping since. Dr. Savage in to see Pt discussed care. CM working on placement.
[2023-07-08 10:52] VITALS: BP 145/75; PULSE 48; RESP 20; TEMP 36.5; O2SAT 97
--- NOTE | 2023-07-08 11:45 | PT.IPTN ---
Current Diagnoses Urinary tract infection, site not specified (07/06/23) Physical Therapy Treatment Note M2 PT-IP Current Condition Start: 07/07/23 12:53 Freq: NEEDED Status: Active Protocol: Document 07/07/23 11:25 AB (Rec: 07/07/23 13:09 AB [id number]) Physical Therapy Current Condition Current Condition Evaluation Date 07/07/23 Treatment Diagnosis UTI; failure to thrive; difficulty in walking Onset Date 07/06/23 M3 PT-IP Subjective Start: 07/07/23 12:53 Freq: NEEDED Status: Active Protocol: Document 07/08/23 12:14 TS (Rec: 07/08/23 12:26 TS [id number]) Subjective Physical Therapy Visit Type Type Treatment Note Visit Start Time 11:45 Visit Stop Time 12:10 Number of FILLER SIFTER MACHINE Visits 1 Physical Therapy Visit Comments Patient Comments Pt found resting in bed, roused when awakened. Pt states he can't move his body when asked to mobilize. He reports pain in his legs with mobility. Pt is agreeable to PT. Therapy Pain Assessment Pain When Pain Assessed During Mobility Pain Present Pain Present Pain Reported M4 PT-IP Mobility and Gait Start: 07/07/23 12:53 Freq: NEEDED Status: Active Protocol: Document 07/08/23 12:14 TS (Rec: 07/08/23 12:26 TS [id number]) PT-Bed Mobility Assessment Supine to Sit Supine to Sit Maximum Assistance,1 Person Assistance Sit to Supine Sit to Supine Moderate Assistance,1 Person Assistance Scooting Scooting to Edge of Bed Moderate Assistance PT-Transfer Assessment Sit to and From Stand Sit to and from Stand Moderate Assistance,1 Person Assistance Equipment Transfer Assistive Device Gait Belt,Front Wheeled Walker Comments Mobility Comments Supine to sit MaxA for LE's to EOB and uprighting trunk. He scooted to EOB with ModA and use of transfer pad. STS from bed ModA x1, pt has some retroleaning and braces back of LE's against bed. He ambulated in room ~50'Scott for FWW management with turns. pt is unsteady with gait and has some tremors. He performed steps x3 Scott with use of JOB SETTER HONING and grab bar, had no buckling ro LOB. Sit to supine into bed ModA for LEs and requires cues for sequencing. Pt was left back in bed, all needs met. Gait Assessment Gait Gait Assistance Required: Contact Guard Assist,Minimum Assistance,1 Person Assist Distance (Feet) 50 Able to Maintain Weight Bearing Status Yes During Gait Assistive Devices Assistive Device Gait Belt,Front Wheeled Walker Gait Deviations General Gait Pattern Antalgic,Decreased Stride Length,Decreased Feet Clearance,Flexed Trunk Factors Limiting Gait Function Factors Limiting Gait Function Decreased Activity Tolerance, Decreased Strength,Difficulty Following Directions,Poor Balance,Poor Safety Awareness Comments Gait Comments See mobility comments Stair Climbing Assessment Evaluation Level of Assist On Stairs Minimal Assistance,1 Person Assistance Devices Stair Climbing Assistive Devices Left Railing,Right Railing Technique/Endurance Stair Climbing Direction Ascend and Descend Stair Climbing Technique Step to Step Number of Steps Climbed 3 Comments Stair Climbing Comments See mobility comments PT-Balance Assessment Sitting Balance and Reactions Static Sitting Balance Ability Good Dynamic Sitting Balance Ability Good Standing Balance and Reactions Static Standing Balance Ability Fair Dynamic Standing Balance Ability Fair Device Used FWW M5 PT-IP Objective Assessments Start: 07/07/23 12:53 Freq: NEEDED Status: Active Protocol: Document 07/07/23 11:25 AB (Rec: 07/07/23 13:09 AB [id number]) Orientation Orientation/Cognition Level of Alertness Alert Orientation Name,Place,Situation Language Function Ability No Deficits Noted Safety Awareness Decreased Safety Awareness Memory Description Short Term Impaired Gross Range of Motion Lower Extremity ROM Assessment Within Functional Limits Strength Lower Extremity Strength Assessment Within Functional Limits Sensation Assessment Sensation Gross Sensation WNL Muscle Tone Muscle Tone WNL Yes M6 PT-IP Treatment Start: 07/07/23 12:53 Freq: NEEDED Status: Active Protocol: Document 07/08/23 12:14 TS (Rec: 07/08/23 12:26 [id number]) Physical Therapy Treatment Education Education Provided Safety M7 PT-IP Assessment and Plan Start: 07/07/23 12:53 Freq: NEEDED Status: Active Protocol: Document 07/08/23 12:14 TS (Rec: 07/08/23 12:26 TS [id number]) PT Summary Assessment and Plan Potential Rehabilitation Potential Fair Summary Impairments Pain,ROM,Strength,Balance, Coordination,Cognition,Bed Mobility,Transfers,Gait, Activity Tolerance Progress Towards Goals Slow Progress due to Medical Issues,Slow Progress due to Activity Tolerance Assessment Summary Benitez is making slow progress with his mobility. He required increased assist to MaxA/ModA for bed mobility. He continues to ambulate short distances in room with Scott for FWW management and cues for handplacement. He has some tremors with gait. He performed steps x3 Scott with single rail and JOB SETTER HONING. He follows single step instructions. PT is recommending SNF at this time to progress strength, functional mobility and activity tolerance. Goals Bed Mobility Goal Independent Transfer Goal Independent,Front Wheeled Walker Gait Goal Independent,Front Wheel Walker Gait Distance 200 Other Goals improve transfers and ambulation without AD/LRAD 300 ft mod I up/down 10 steps 1 rail mod I Days to Meet Goals 10 Frequency of Treatment Frequency Of Treatment Once a Day Treatment Plan Physical Therapy Treatment Plan Bed Mobility Training,Transfer Training,Gait Training, Therapeutic Exercise,Balance Retraining,Discharge Planning, Hot or Cold Pack,Neuromuscular Re-ed,Coordination Retraining Precautions Other Precautions falls Recommendations To Nursing Amount of Assist Needed 1 Person Assist Discharge Recommendations PT Discharge Recommendations SNF Rehab Equipment Needed for Home Before FWW if not safe without AD Discharge Transportation Needs at Discharge Private Vehicle,Wheelchair/ Cabulance
--- NOTE | 2023-07-08 12:21 | CM.DPC ---
DCP Cont. Reviewed EMR and team rounds for status updates. [facility] is reviewing for acceptance, however they want him to be mentally clear as much as possible back to baseline before they will confirm acceptance. They will monitor over the weekend with the hope that the antibiotics help him to improve. Sister will visit later today. This BELTING CUTTER was going to go over home caregiving agencies to consider for after he is d/c home from rehab, however she is very overwhelmed and not retaining information right now. CM will continue to follow closely, PASSAR not yet completed.
[2023-07-08] MEDS: TAMSULOSIN 0.4 MG CAPSULE PO (15:17)
[2023-07-08 16:05] VITALS: BP 130/75; PULSE 79; RESP 20; TEMP 36.3; O2SAT 96
[2023-07-08] MEDS: CEFDINIR 300 MG CAPSULE PO (21:39)
[2023-07-08] MEDS: QUETIAPINE 25 MG TABLET PO (21:39)
[2023-07-09 00:05] VITALS: RESP 17
[2023-07-09 00:40] VITALS: BP 128/75; PULSE 83; RESP 17; TEMP 36.1; O2SAT 95
[2023-07-09 05:48] VITALS: BP 115/67; PULSE 77; RESP 16; TEMP 36.4; O2SAT 93
[2023-07-09 06:25] LABS: Add Manual Diff / Slide Review NO; Basophils Absolute Auto 100 /uL (0-100); Basophils Percent Auto 0.7 % (0-2); Eosinophils Absolute Auto 400 /uL (0-450); Eosinophils Percent Auto 5.4 % (2-4); Hematocrit 39.6 % (41-53); Hemoglobin 13.2 g/dL (13.5-17.5); Lymphocytes Absolute Auto 2300 /uL (1100-4500); Lymphocytes Percent Auto 30.4 % (25-40); Mean Corpuscular HGB Conc 33.4 % (30-36); Mean Corpuscular Hemoglobin 31.1 PG (26-34); Mean Corpuscular Volume 93.1 fL (80-100); Monocytes Absolute Auto 700 /uL (0-900); Monocytes Percent Auto 9.1 % (3-14); Neutrophils Absolute Auto 4000 /uL (1500-7000); Neutrophils Percent Auto 54.4 % (50-75); Platelet Count 260 X10^3/uL (150-400); Red Blood Cell Count 4.25 X10^6/uL (4.5-5.9); Red Cell Distribution Width 14.9 % (11.6-14.8); White Blood Cell Count 7.4 X10^3/uL (4.5-11.0)
[2023-07-09 06:42] LABS: Alanine Aminotransferase 18 IU/L (<50); Albumin 3.2 g/dL (3.5-5.0); Alkaline Phosphatase 84 U/L (38-126); Aspartate Aminotransferase 26 IU/L (17-59); BUN Creatinine Ratio 30.6 (6-22); Bilirubin Total 0.6 mg/dL (0.2-1.3); Blood Urea Nitrogen 22 mg/dL (9-20); Calcium 8.8 mg/dL (8.4-10.2); Carbon Dioxide 27 mmol/L (22-32); Chloride 108 mmol/L (98-107); Estimated Glomerular Filt Rate > 60 mL/min (>60); Globulin 3.1 g/dL (1.7-4.1); Glucose 86 mg/dL (80-110); HEMOLYSIS < 15 (0-50); Sodium 137 mmol/L (137-145); Total Protein 6.3 g/dL (6.3-8.2)
--- NOTE | 2023-07-09 10:34 | P.PN_ITS ---
Subjective Subjective Date Patient Seen: 07/09/23 Time Patient Seen: 10:34 Interval history: Patient's mental status is improved. Still having some hallucinations he is able to recognize that they are not real. Knows he is at [facility] and [place]. Not hungry. He has been out of bed to the chair with assistance. Not eating well. He says he is doing fine other than the hallucinations. Blood counts have been stable stopped IV antibiotics yesterday he is on oral antibiotics. Ready for discharge hoping for correction facility discharge for strengthening rehabilitation. Exam Vital Signs (past 8 hours): - 07/09/23 05:48 Temperature 97.6 F Pulse Rate 77 Respiratory Rate 16 Blood Pressure 115/67 Pulse Oximetry 93 Oxygen Flow Rate 0 Oxygen Delivery Method Room Air Oxygen Flow Rate 0 Narrative Exam Narrative: Gen.: Alert to person place and date improved over yesterday HEENT: Pupils equal round and reactive or mucosa is moist neck is supple Cardio: Regular rate and rhythm Respiratory: Normal respiratory effort Abdomen: Soft nontender Extremities: Full range of motion with some weakness and generalized rigidity Objective Labs 07/09/23 05:30 07/09/23 05:30 Labs: Laboratory Results - last 24 hr 07/09/23 05:30 WBC 7.4 RBC 4.25 L Hgb 13.2 L Hct 39.6 L MCV 93.1 MCH 31.1 MCHC 33.4 RDW 14.9 H Plt Count 260 Neut % (Auto) 54.4 Lymph % (Auto) 30.4 [place] % (Auto) 9.1 Eos % (Auto) 5.4 H Baso % (Auto) 0.7 Neut # (Auto) 4000 Lymph # (Auto) 2300 [place] # (Auto) 700 Eos # (Auto) 400 Baso # (Auto) 100 Sodium 137 Potassium 4.0 Chloride 108 H Carbon Dioxide 27 BUN 22 H Creatinine 0.72 Estimated GFR > 60 BUN/Creatinine Ratio 30.6 H Glucose 86 Calcium 8.8 Total Bilirubin 0.6 AST 26 ALT 18 Alkaline Phosphatase 84 Total Protein 6.3 Albumin 3.2 L Globulin 3.1 Albumin/Gl[facility]ulin Ratio 1.0 [facility] Medical History Urinary tract infection History of orchitis Intermittent self-catheterization of bladder Lower urinary tract symptoms Bladder diverticulum High blood pressure BPH (benign prostatic hyperplasia) Chronic pain syndrome (Unknown) Shoulder pain, left (Unknown) Surgical History H/O cystoscopy History of hernia repair Status post insertion of spinal cord stimulator History of tonsillectomy Family History Father CAD in [place] artery History of BPH Mother Hypertension Social History marital status: number of children: 0 household members: none Smoking Status: Never smoker alcohol intake: current Type(s) of exercise: other frequency: 3-4 times per week Assessment & Plan Assessment and plan (1) Acute UTI: Status: Acute Plan Urinary tract infection with systemic symptoms. Switch from IV antibiotics to oral antibiotics on Omnicef patient is much more clear today. Oriented to place person and time. Discussed discharge plan correction facility versus home with home health. Social working for discharge to correction which would I think be more appropriate for him. Encephalopathy. Patient still with hallucinations recognizes that he is hallucinating. He is bothered by them. But he is recognizing that they are not real. Question whether he has a dementia with Lewy body disease versus Parkinson's plus. Would recommend long-term a pseudocholinesterase inhibitor. Seroquel does not seem to be doing much would be consistent with this diagnosis. Moderate to severe protein calorie malnutrition. Still not eating well. Signs of significant weight loss 40 lb in the last few weeks. Ensure resource drinks redirection to food. Continue to work on dietary adjustment. Cerebrovascular accident. Previous CT scan shows lacunar infarct. Will make sure he has on an aspirin. He has currently not on a statin may not be appropriate due to his calorie malnutrition. DVT prophylaxis Code status DNR Disposition plan. Discharge to correction facility if they accept or home with home health. Medically stable for discharge. Quality VTE Deep Vein Thrombosis/Pulmonary Embolism Present on Admission: No
[2023-07-09] MEDS: CEFDINIR 300 MG CAPSULE PO ×2 (11:08→20:56)
[2023-07-09] MEDS: ASPIRIN EC 325 MG TABLET PO (11:08)
[2023-07-09] MEDS: ENOXAPARIN 40 MG/0.4 ML SYRINGE SUBCUT (11:09)
[2023-07-09] MEDS: TAMSULOSIN 0.4 MG CAPSULE PO (11:09)
--- NOTE | 2023-07-09 11:50 | PT-IP ANOTE ---
Attempted to see pt at 11:50, pt reused PT stating he is really not feeling well and is incontinent of bladder and bowel as of this AM. RN notified.
[2023-07-09 12:00] VITALS: BP 156/86; PULSE 69; RESP 16; TEMP 36.3; O2SAT 99
--- NOTE | 2023-07-09 15:54 | CM.DPNOTE ---
DCP Note RADIAL SAW OPERATOR reviewed EMR. Per PN, mental status has improved. Per RN, pt alert today. Calm and cooperative. RADIAL SAW OPERATOR spoke with Lupe at [facility], waiting on acceptance for another night pending mentation. Requested RN notes that reflect his mentation accurately. Report interested in dcp after SNF placement/POA ppwk. Per OT note, pt scored 22/30 on SLUMS assessmet. RADIAL SAW OPERATOR asked RN for updated RN notes, in agreement to doc pt's current mentation. RADIAL SAW OPERATOR met with sister Mel, two friends, and pt in room. Pt A/Ox3 (knew it was June 2023 but didn't know exact date). Pt reports not confused but being weaker than normal. Pt reports worries about going home due to mess at home (believe to be in reference to pt's incontinence prior to admission). Pt reports wanting his sister to be POA. Pt nodding head along during DCP conversation. Primary participant in DCP conversation was sister Mel. RADIAL SAW OPERATOR provided copy of POA pwk- Mel will fill it out with pt. Two friends willing to act as witnesses. Mel interested in notary- RADIAL SAW OPERATOR will attempt to see if in house notary available tomorrow. Mel reports being willing and able to act as POA for pt. RADIAL SAW OPERATOR reviewed potential barriers to SNF placement- sister reported verbal understanding. Mel plans to either assist pt in hiring in home CGs PP after SNF stay pending acceptance or assist in helping him move into terminal manager [facility] at [place]. Mel reports in past pt has expressed wanting to live at home, but in today's conversation pt reports being open to either home with CGs or SNF pending how he does after therapy. Sister working on hiring cleaning crew to clean pt's house at this time. Sister eager to assist pt as able, but just cannot with physical needs due to using a walker/wheelchair herself. Preference remains dc to [facility] and then either return home with CGs or TERI post SNF placement. Sister/pt report no financial concerns at this time. Plan: Pt/sister (future POA) hopeful for [facility] placement pending acceptance. RADIAL SAW OPERATOR will assist in arranging for notary tomorrow vs outside agency notary vs witness signatures. PASRR needed. CM team will continue to follow closely. ARNOLDO Koch
[2023-07-09] MEDS: QUETIAPINE 25 MG TABLET PO (20:56)
[2023-07-10 04:30] VITALS: BP 155/71; PULSE 78; RESP 19; TEMP 36.2; O2SAT 97
[2023-07-10] MEDS: CEFDINIR 300 MG CAPSULE PO ×2 (10:02→21:09)
[2023-07-10] MEDS: TAMSULOSIN 0.4 MG CAPSULE PO (10:03)
[2023-07-10] MEDS: ASPIRIN EC 325 MG TABLET PO (10:03)
[2023-07-10] MEDS: ENOXAPARIN 40 MG/0.4 ML SYRINGE SUBCUT (10:03)
--- NOTE | 2023-07-10 10:23 | PC.NURSE ---
Pt very alert this morning, he knew, date, place, reason for stay. pt very cooperative. He did get up to the bathroom with DIABETES EDUCATION COORDINATOR sba/fww, he didn't quite know what to do with his walker initially, but can be easily be redirected. At this time, he is sitting in chair and eating breakfast. pt urinary incontinence and wearing brief. call light in reach.
--- NOTE | 2023-07-10 10:24 | P.PN_ITS ---
Subjective Subjective Date Patient Seen: 07/10/23 Time Patient Seen: 10:00 Interval history: chief complaint: UTI Pt is feeling generally ok this morning Reports the demons have receded and are no longer plaguing him Urination issues he described on Monday seem to have resolved with flomax and antibiotics Ate about half of breakfast he is sitting in chair looking perky Plan is working towards SNF/rehab tomorrow Exam Vital Signs (past 8 hours): - 07/10/23 04:30 Temperature 97.2 F L Pulse Rate 78 Respiratory Rate 19 Blood Pressure 155/71 H Pulse Oximetry 97 Oxygen Flow Rate 0 Oxygen Delivery Method Room Air Oxygen Flow Rate 0 Narrative Exam Narrative: sitting up in chair eating breakfast Const General: cooperative, comfortable and well developed Nutritional Appearance: thin Orientation: alert, awake and oriented x3 HENMT Other: normocephalic - lesion on L ear helix noted not sure how long that's been there looks like it's healing Eyes Other: PERRLA, EOMI Resp Other: clear to auscultation bilaterally Cardio Other: regular rate and rhythm, S1/S2 GI Other: soft nontender nondistended Neuro Other: AAOx4 Extrem Other: moving all extremities, no pedal edema Psych Appearance: grossly normal and well kempt Mental Status: mental status grossly normal Speech and Movement: speech and movement normal Mood: congruent mood Affect: normal affect Attitude: cooperative Thought Process: normal Thought Content: normal and no hallucinations Judgment: fair Objective Labs 07/09/23 05:30 07/09/23 05:30 PFSH Medical History Urinary tract infection History of orchitis Intermittent self-catheterization of bladder Lower urinary tract symptoms Bladder diverticulum High blood pressure BPH (benign prostatic hyperplasia) Chronic pain syndrome (Unknown) Shoulder pain, left (Unknown) Surgical History H/O cystoscopy History of hernia repair Status post insertion of spinal cord stimulator History of tonsillectomy Family History Father CAD in [place] artery History of BPH Mother Hypertension Social History marital status: number of children: 0 household members: none Smoking Status: Never smoker alcohol intake: current Type(s) of exercise: other frequency: 3-4 times per week Assessment & Plan Assessment & Plan narrative: Urinary tract infection with systemic symptoms s/p tx with IV antibiotics, now on oral Omnicef patient is oriented to place person and time reports niko have left him alone now for last 24 hours. Planning discharge to SNF/rehab #Encephalopathy Improved now with treatment of the UTI with good insight. I do not note much impact from seroquel at 25mg so probably ok to dc that. If this recurs might consider anticholinesterase inhibitor. #Moderate to severe protein calorie malnutrition Eating about 50% of breakfast, in setting of impressive weight loss, encourage snacking ad dave. #Hx of CVA Per previous CT scan showing lacunar infarct. Continue ASA 81 with low dose statin DVT prophylaxis: scds and lovenox PCP: Nickie Code status: DNR Diet: General Dispo: discharge to assisted facility if they accept or home with home health. Medically stable for discharge. Quality VTE Deep Vein Thrombosis/Pulmonary Embolism Present on Admission: No
--- NOTE | 2023-07-10 11:27 | CM.DPNOTE ---
Addendum entered by ARNOLDO Koch 07/10/23 15:54: From Cynthia at [facility], can accept pt tomorrow, anticipate between 1pm-330pm transport time. JIGSAW OPERATOR emailed Cynthia at [facility] copy of POA ppwk. JIGSAW OPERATOR met with pt, sister/POA, and friends in room. Sister provided POA ppwk. Sister/pt in agreement with plan to dc to [facility] tomorrow. JIGSAW OPERATOR answered insurance/terminal press operator plan questions to best of ability. Sister plans to be here tomorrow to assist pt in intake ppwk. Sister/friends are excited for local SNF acceptance due to all of pt's supports being local. PLAN: anticipate dc tomorrow to [facility] between 1pm-330pm. CM team will continue to follow closely. SL Original Note: DCP note JIGSAW OPERATOR reviewed EMR. Per Dr. Fu, pt no longer experiencing hallucinations. Per RN, did well overnight and is cooperative with staff. JIGSAW OPERATOR spoke with sister Mel over the phone- completed DPOA ppwk and had two friends sign as witnesses. Will bring to room today. Familia Cazares agreed to meet with family in room at 3pm today to notarize financial ppwk. JIGSAW OPERATOR spoke with Cynthia at [facility]- team is doing final review and will update on decision. JIGSAW OPERATOR completed PASRR- no level 2 indicated at this time due to no MH diagnoses history and pt's hallucinations appearing medical in nature. Have resolved after few days of abx and pt has exhibited no behaviors indicative of MH concerns at this time. Cynthia from [facility] reports they are unable to take another admission today but are hopeful they will be able to accept tomorrow. Plan: anticipate dc to [facility] tomorrow/Monday pending officially acceptance. CM team will continue to follow closely. Plan to meet with family in room at 3pm ARNOLDO Koch
--- NOTE | 2023-07-10 11:28 | PT.IPTN ---
Current Diagnoses Urinary tract infection, site not specified (07/06/23) Physical Therapy Treatment Note M2 PT-IP Current Condition Start: 07/07/23 12:53 Freq: NEEDED Status: Active Protocol: Document 07/07/23 11:25 AB (Rec: 07/07/23 13:09 AB [id number]) Physical Therapy Current Condition Current Condition Evaluation Date 07/07/23 Treatment Diagnosis UTI; failure to thrive; difficulty in walking Onset Date 07/06/23 M3 PT-IP Subjective Start: 07/07/23 12:53 Freq: NEEDED Status: Active Protocol: Document 07/10/23 12:35 ZF (Rec: 07/10/23 12:46 ZF [id number]) Subjective Physical Therapy Visit Type Type Treatment Note Visit Start Time 11:28 Visit Stop Time 11:49 Number of FOOD PRODUCTION MANAGER Visits 1 Physical Therapy Visit Comments Patient Comments Pt up in recliner, agreeable to therapy. Therapy Pain Assessment Pain When Pain Assessed During Mobility Pain Present Pain Present Denied Pain M4 PT-IP Mobility and Gait Start: 07/07/23 12:53 Freq: NEEDED Status: Active Protocol: Document 07/10/23 12:35 ZF (Rec: 07/10/23 12:46 ZF [id number]) PT-Transfer Assessment Sit to and From Stand Sit to and from Stand Minimal Assistance,1 Person Assistance Equipment Transfer Assistive Device Gait Belt,Front Wheeled Walker Orthotic/Prosthetic Devices or Brace: No Transfers Transfer Destination Chair Transfer Technique Stand Step Pivot Transfer Ability Level of Assist Contact Guard Assistance Comments Mobility Comments STS from low recliner requires Scott. STS from higher window seat, CGA. Pt educated to push up from seat instead of pulling on AD, with good carryover. Pt amb 3x50' in room w/2ww, CGA. Standing balance activites to improve activity tolerance and safety w/functional mobility to include, standing w/o UE support with lateral and vertical head turns. Pt requires CGA, dems no LOB. Pt declines stair training today, stating he's not up for it. Vitals monitored with activity , remain WNL. Gait Assessment Gait Gait Assistance Required: Contact Guard Assist,1 Person Assist Distance (Feet) 150 Able to Maintain Weight Bearing Status Yes During Gait Assistive Devices Assistive Device Gait Belt,Front Wheeled Walker Orthotic/Prosthetic Devices or Brace: No Gait Deviations General Gait Pattern Antalgic,Decreased Stride Length,Decreased Feet Clearance,Flexed Trunk Factors Limiting Gait Function Factors Limiting Gait Function Decreased Activity Tolerance, Decreased Strength,Difficulty Following Directions,Poor Balance,Poor Safety Awareness Comments Gait Comments See mobility comments PT-Balance Assessment Sitting Balance and Reactions Static Sitting Balance Ability Good Dynamic Sitting Balance Ability Good Standing Balance and Reactions Static Standing Balance Ability Fair Dynamic Standing Balance Ability Fair Device Used FWW M5 PT-IP Objective Assessments Start: 07/07/23 12:53 Freq: NEEDED Status: Active Protocol: Document 07/07/23 11:25 AB (Rec: 07/07/23 13:09 AB [id number]) Orientation Orientation/Cognition Level of Alertness Alert Orientation Name,Place,Situation Language Function Ability No Deficits Noted Safety Awareness Decreased Safety Awareness Memory Description Short Term Impaired Gross Range of Motion Lower Extremity ROM Assessment Within Functional Limits Strength Lower Extremity Strength Assessment Within Functional Limits Sensation Assessment Sensation Gross Sensation WNL Muscle Tone Muscle Tone WNL Yes M6 PT-IP Treatment Start: 07/07/23 12:53 Freq: NEEDED Status: Active Protocol: Document 07/10/23 12:35 ZF (Rec: 07/10/23 12:46 ZF [id number]) Physical Therapy Treatment Education Education Provided Safety M7 PT-IP Assessment and Plan Start: 07/07/23 12:53 Freq: NEEDED Status: Active Protocol: Document 07/10/23 12:35 ZF (Rec: 07/10/23 12:46 ZF [id number]) PT Summary Assessment and Plan Potential Rehabilitation Potential Fair Summary Impairments Pain,ROM,Strength,Balance, Coordination,Cognition,Bed Mobility,Transfers,Gait, Activity Tolerance Progress Towards Goals Slow Progress due to Medical Issues,Slow Progress due to Activity Tolerance Assessment Summary Pt dems increased tolerance for amb distances in room today, but declines stair training. Pt able to follow one step commands. Pt will benefit from SNF stay to increase activity tolerance and strength and for safety as he reports that he lives alone and doesn't have anyone who can help him at home. Goals Bed Mobility Goal Independent Transfer Goal Independent,Front Wheeled Walker Gait Goal Independent,Front Wheel Walker Gait Distance 200 Other Goals improve transfers and ambulation without AD/LRAD 300 ft mod I up/down 10 steps 1 rail mod I Days to Meet Goals 10 Frequency of Treatment Frequency Of Treatment Once a Day Treatment Plan Physical Therapy Treatment Plan Bed Mobility Training,Transfer Training,Gait Training, Therapeutic Exercise,Balance Retraining,Discharge Planning, Hot or Cold Pack,Neuromuscular Re-ed,Coordination Retraining Precautions Other Precautions Falls Recommendations To Nursing Amount of Assist Needed 1 Person Assist Discharge Recommendations PT Discharge Recommendations SNF Rehab Equipment Needed for Home Before FWW Discharge Transportation Needs at Discharge Private Vehicle,Wheelchair/ Cabulance
[2023-07-10 12:00] VITALS: BP 135/84
--- NOTE | 2023-07-10 13:03 | DIET.CONS2 ---
Dietary Inpatient Consultation Note Admission Date: 07/06/2023 16:24 F/u visit. Met with pt at bedside. Pt finishing breakfast and drinking Ensure Original and milk. Pt does like regular Ensures. Will disregard pt statement from last consult stating he did not enjoy regular Ensures. Reports appetite is still low. Encouraged continued adequate intake as tolerated with emphasis on Ensures, milks, and protein due to malnutrition dx. Diet: 07/06/23 Dinner General (Regular) Diet Diet Modifications: snacks ad dave Food Texture: Level 7 - Regular Liquid Consistency: Level 0 - Thin Nutrition Percent Meal Consumed 100% 07/10/23 09:49 Percent Meal Consumed 50% 07/09/23 13:00 Percent Meal Consumed 50% 07/09/23 12:00 Percent Meal Consumed 100% 07/09/23 12:00 Percent Meal Consumed 0% 07/09/23 09:00 Percent Meal Consumed 100% 07/08/23 18:00 Percent Meal Consumed 0% 07/08/23 13:15 Electronically Signed by: Richa Cherry 07/10/23 13:03 Clinical Dietitian [address] [address]
[2023-07-10 16:44] VITALS: PULSE 77; RESP 18; TEMP 37.2; O2SAT 99
--- NOTE | 2023-07-10 16:50 | OT.IP.TRT ---
Current Diagnoses Urinary tract infection, site not specified (07/06/23) Occupational Therapy Treatment Note M2 OT-IP Current Condition Start: 07/07/23 16:49 Freq: Status: Active Protocol: Document 07/07/23 14:45 [facility] (Rec: 07/07/23 17:24 [facility] [id number]) Occupational Therapy Current Condition Current Condition Evaluation Date 07/07/23 Treatment Diagnosis Failure to Thrive, UTI Diagnosis Onset Date 07/07/23 M3 OT- IP Subjective and Pain Start: 07/07/23 16:49 Freq: Status: Active Protocol: Document 07/10/23 16:57 [facility] (Rec: 07/10/23 17:01 CGR [id number]) OT- Subjective Occupational Therapy Visit Type Type Treatment Note Visit Start Time 16:39 Visit Stop Time 16:50 OT Pain Assessment Pain When Pain Assessed At Rest Pain Present Pain Present Denied Pain M4 OT- IP ADL's Start: 07/07/23 16:49 Freq: Status: Active Protocol: Document 07/10/23 16:57 CGR (Rec: 07/10/23 17:01 CGR [id number]) OT [id number] Comments OT Self-Feeding Comments not meal time OT ADL-Grooming General Evaluation Grooming Ability Standby Assistance Areas Needing Assistance Retrieving/Set-up of Grooming Items,Combing/Brushing Hair, Face Washing Comments OT Grooming Comments with set up standing at sink OT ADL-Oral Care General Eval Oral Care Ability Minimal Assistance Areas of Assistance Brushing Teeth Comments Oral Care Comments with set up standing at sink OT ADL-Dressing Comments OT Dressing Comments not performed OT ADL-Toileting Comments OT Toileting Comments pt declined need OT ADL-Bathing Comments OT Bathing Comments not performed M5 OT- IP IADL's Start: 07/07/23 16:49 Freq: Status: Active Protocol: Document 07/07/23 14:45 [facility] (Rec: 07/07/23 17:24 [facility] [id number]) OT-Instrumental Activities of Daily Living Deficits IADL Deficits Identified Deficits Home Safety Awareness Awareness of Need for Assistance at Home Good Awareness Ability to Problem Solve Emergency Unable to Problem Solve Situations Medication Management Medication Management Comments Pt states just take the pills out fo the pill bottles. Money Management Money Management Comments Pt states just writes check as his bills come in. Meal Preparation Meal Preparation Comments Per pt's medical chart, pt has lose 40lbs in the last few months. Pt will need assist. Screen Tacker Screen Tacker Comments Pt will need assist. Driving Driving Concerns Identified Regarding Safety M6 OT- IP Functional Cognition Start: 07/07/23 16:49 Freq: Status: Active Protocol: Document 07/10/23 16:57 CGR (Rec: 07/10/23 17:01 CGR [id number]) Cognitive Factors Limiting Selfcare Function Cognitive Ability Level of Alertness Alert Patient Orientation Name,Age,Birthday,Month,Date, Year,Day of Week,Place, Situation Attention Span Ability Capable of Focused Attention, Capable of Sustained Attention Ability to Follow Commands Able to Follow One Step Commands with Increased Time, Able to Follow One Step Commands with Repetition Cognitive Comments Cognitive Assessment Comments Pt is [place] but might benefit from formal cog assessment. OT- Vision and Hearing OT- Hearing Assessment OT- Hearing Assessment Hearing Impaired M7 OT- IP Mobility and Balance Start: 07/07/23 16:49 Freq: Status: Active Protocol: Document 07/10/23 16:57 CGR (Rec: 07/10/23 17:01 CGR [id number]) OT-Transfer Assessment Sit to and From Stand Sit to and from Stand Contact Guard Assistance, Minimal Assistance Transfers Transfer Ability Contact Guard Assistance, Minimal Assistance Technique Transfer Destination Chair Transfer Technique Stand Step Pivot Devices Transfer Assistive Devices Gait Belt,Front Wheeled Walker Comments Mobility Comments Pt ambulated from the chair to the sink for ADLs and returned to chair at end of session. OT- Balance Assessment Sitting Balance and Reactions Static Sitting Balance Ability Fair Dynamic Sitting Balance Ability Fair M8 OT- IP Objective Assessments Start: 07/07/23 16:49 Freq: Status: Active Protocol: Document 07/07/23 14:45 [facility] (Rec: 07/07/23 17:24 [facility] [id number]) OT Gross Range of Motion Upper Extremity Range of Motion Assessment Left Impaired ROM Impairments LUE due to old rib fracture 0- 95 shoulder flexion. OT Strength Comments Strength Comments RUE 4/5, LUE elbow to distal 4 /5 NT at left shoulder due to pain. OT- Coordination Assessment Upper Extremity Finger to Nose Test Bilateral UE Impaired Finger Tapping Test Bilateral UE Impaired Comments Coordination Comments Pt slightly off for all and tremors with his hands. OT Sensation Assessment Comments Summary Comments Pt having difficulty to get the words out and understand the directions. M9 OT- IP Assessment and Plan Start: 07/07/23 16:49 Freq: Status: Active Protocol: Document 07/10/23 16:57 CGR (Rec: 07/10/23 17:01 CGR [id number]) OT Summary Assessment and Plan Potential Rehabilitation Potential Fair Analytic Complexity at Evaluation Moderate Summary OT Impairments Pain,Range of Motion,Strength, Balance,Coordination,Sensation ,Functional Cognition, Functional Mobility,Self- Feeding,Grooming,Dressing, Toileting,Bathing,Toilet Transfers,Shower Transfers, Activity Tolerance Progress Towards Goals Slow Progress due to Pain,Slow Progress due to Medical Issues,Slow Progress due to Activity Tolerance,Slow Progress due to Cognition Assessment Summary Pt is progressing with therapy at this time but still appears confused. Pt will benefit from increased activity. Plan for shower for pt tomorrow if agreeable. Goals Grooming Goal Independent Dressing Goal Independent Toileting Goal Standby Assistance Bathing Goal Standby Assistance Toilet Transfer Goal Independent Shower Transfer Goal Independent Days to Meet Goals 10 Frequency of Treatment Frequency Of Treatment Once a Day Treatment Plan OT Treatment Plan ADL Training,Functional Cognition Training,Functional Mobility,Patient/Family Education,Discharge Planning Other Treatment Recommendations and Next reassess pt's vision, shower Treatment Focus Discharge Recommendations OT Discharge Recommendations SNF Rehab,[facility] Transportation Needs at Discharge Private Vehicle,Wheelchair/ Cabulance
[2023-07-10] MEDS: ATORVASTATIN 20 MG TABLET 10 MG PO (21:09)
[2023-07-10 21:24] VITALS: BP 143/69; PULSE 68; RESP 15; TEMP 36.9; O2SAT 96
[2023-07-11 03:37] VITALS: BP 138/71; PULSE 63; RESP 15; TEMP 36.4; O2SAT 96
[2023-07-11 08:00] VITALS: BP 125/63; PULSE 80; RESP 24; TEMP 36.5; O2SAT 97
--- NOTE | 2023-07-11 08:40 | PM.HP.1 ---
History of Present Illness History of Present Illness Date Patient Seen: 07/11/23 Time Patient Seen: 08:40 Date of Onset of Symptoms: 06/27/23 Chief complaint: Failure to thrive Narrative: See history and physical dictated by Dr. Stern [facility] Medical History Urinary tract infection History of orchitis Intermittent self-catheterization of bladder Lower urinary tract symptoms Bladder diverticulum High blood pressure BPH (benign prostatic hyperplasia) Chronic pain syndrome (Unknown) Shoulder pain, left (Unknown) Surgical History H/O cystoscopy History of hernia repair Status post insertion of spinal cord stimulator History of tonsillectomy Family History Father CAD in [place] artery History of BPH Mother Hypertension Social History marital status: number of children: 0 household members: none Smoking Status: Never smoker alcohol intake: current Type(s) of exercise: other frequency: 3-4 times per week Meds Home Medications and Allergies Home Medications Medication Instructions Recorded Confirmed Type docusate sodium 100 mg capsule 100 mg PO BID #60 caps 08/07/18 07/06/23 Rx (Colace) naproxen sodium 220 mg capsule 220 mg PO Q12H PRN Pain (Scale 01/26/22 07/06/23 History (Aleve) Score 1-3) atorvastatin 20 mg tablet 10 mg (1/2 x 20 mg) PO BEDTIME #30 07/11/23 Rx tabs cefdinir 300 mg capsule 300 mg PO BID #14 caps 07/11/23 Rx tamsulosin 0.4 mg capsule (Flomax) 0.4 mg PO DAILY #60 caps 07/11/23 Rx Allergies Allergy/AdvReac Type Severity Reaction Status Date / Time No Known Drug Allergies Allergy Verified 04/20/23 09:06 Exam Vital Signs (past 8 hours): - 07/11/23 03:37 Temperature 97.6 F Pulse Rate 63 Respiratory Rate 15 Blood Pressure 138/71 Pulse Oximetry 96 Oxygen Delivery Method Room Air Oxygen Flow Rate 0 Objective Labs 07/09/23 05:30 07/09/23 05:30 Quality VTE Deep Vein Thrombosis/Pulmonary Embolism Present on Admission: No
--- NOTE | 2023-07-11 08:41 | PM.DS.1 ---
History of Present Illness History of Present Illness Date Patient Seen: 07/11/23 Time Patient Seen: 08:41 Date of Onset of Symptoms: 07/11/23 Chief complaint: Failure to thrive Narrative: See history and physical dictated by Discharge Providers Provider Date of admission: 07/06/23 16:24 Discharge Date: 07/11/23 Primary care physician: Gee Fu MD Consults: 07/06/23 21:11 Consult to Occupational Therapy Evaluate & Treat Comment: Physician Instructions: Evaluate and treat Consult to Physical Therapy Evaluate & Treat Comment: Physician Instructions: Evaluate and Treat Discharge provider: Mk Gasca MD Summary Hospital Course Discharge Diagnosis: Urinary tract infection with systemic symptoms Metabolic encephalopathy Moderate to severe protein malnutrition History of CVA Hospital Course: Patient with history of urinary tract infection which was being treated as outpatient. Patient was placed on IV therapy and slowly improved. No fevers no white count cultures were negative on urinary treatment. But patient continued to improve and was felt to be infected and poorly treated prior to admission. Patient did well continued to improve and will be continued on oral antibiotics which he was switch to 2 days ago for 7 more days. Encephalopathy metabolic. Archer to be secondary to infection. Patient had pretty severe hallucinations with denominational overtones. Patient cleared over the course of his admission. He had Seroquel initially started and had done well. Was completely normal today on exam. Moderate to severe protein calorie malnutrition secondary to his metabolic encephalopathy and loss of ability to care for himself at home. Seems to be eating better now. Will continue to follow. History of CVA. No evidence of worsening or change. Was continued on 81 mg of aspirin. Disposition overall felt that needs rehab both with physical therapy and occupational therapy. Goals will be discharged home. Exam Vital Signs (past 8 hours): - 07/11/23 03:37 Temperature 97.6 F Pulse Rate 63 Respiratory Rate 15 Blood Pressure 138/71 Pulse Oximetry 96 Oxygen Delivery Method Room Air Oxygen Flow Rate 0 Narrative Exam Narrative: Alert elderly male in no acute distress Lungs are clear heart is regular rate and rhythm abdomen is soft positive bowel sounds nontender Objective Labs 07/09/23 05:30 07/09/23 05:30 [facility] Medical History Urinary tract infection History of orchitis Intermittent self-catheterization of bladder Lower urinary tract symptoms Bladder diverticulum High blood pressure BPH (benign prostatic hyperplasia) Chronic pain syndrome (Unknown) Shoulder pain, left (Unknown) Surgical History H/O cystoscopy History of hernia repair Status post insertion of spinal cord stimulator History of tonsillectomy Family History Father CAD in [place] artery History of BPH Mother Hypertension Social History marital status: number of children: 0 household members: none Smoking Status: Never smoker alcohol intake: current Type(s) of exercise: other frequency: 3-4 times per week Discharge Assessment & Plan Assessment and Plan Assessment: Improved but not back to baseline Plan of Treatment: Discharge to senior care Discharge Plan Discharge Plan Patient Disposition: SNF Transfer to: [facility] Under care of provider: Homar RAO Discharge orders & Medications Prescriptions: New atorvastatin 20 mg Tablet 10 mg PO BEDTIME Qty: 30 0RF tamsulosin [Flomax] 0.4 mg Capsule 0.4 mg PO DAILY Qty: 60 0RF cefdinir 300 mg Capsule 300 mg PO BID Qty: 14 0RF Continued docusate sodium [Colace] 100 mg capsule 100 mg PO BID Qty: 60 2RF naproxen sodium [Aleve] 220 mg capsule 220 mg PO Q12H PRN (Reason: Pain (Scale Score 1-3)) Discontinued nitrofurantoin monohyd/m-cryst 100 mg capsule 100 mg PO BID Qty: 20 0RF Rx Instructions: must administer with a meal/food Follow up/Referrals: Gee Fu MD [Primary Care Provider] - 1 Month Discharge Health Status Multidrug resistant organism: No MDRO Precautions: [place] Diet/Activity/Treatments Diet: Diet as Tolerated Liquid consistency: Normal/Thin Food texture: Regular Skin/Wound/Dressing Care Report to your healthcare provider any signs of infection, such as:: chills, fever and night sweats Special Rehabilitation Services Reason for rehabilitation: Post-operative therapy Rehab type: Physical therapy and Occupational therapy Visit Report/Discharge Packet Stand Alone Forms: Patient Portal/API Discharge Data Primary Care Provider: Gee Fu Quality VTE Deep Vein Thrombosis/Pulmonary Embolism Present on Admission: No
[2023-07-11] MEDS: ENOXAPARIN 40 MG/0.4 ML SYRINGE SUBCUT (08:45)
[2023-07-11] MEDS: TAMSULOSIN 0.4 MG CAPSULE PO (08:45)
[2023-07-11] MEDS: CEFDINIR 300 MG CAPSULE PO (08:45)
[2023-07-11] MEDS: ASPIRIN EC 325 MG TABLET 81 MG PO (08:46)
--- NOTE | 2023-07-11 11:39 | CM.DPNOTE ---
DCP note [employer] [employer] reviewed EMR. Per provider, pt cleared to DC to [facility] today. med list in chart. [employer] [employer] spoke with Cynthia at [facility], transport arranged for 1pm. [employer] [employer] updated RN. [facility] [employer] placed copy of POA ppwk in scanning folder. CC Cecille kindly agreed to email PASRR/meds/dc sum to Cynthia at [facility]. CC Cecille placed PASRR/meds in chart and provided RN with report number. updated [employer]. [facility] [employer] spoke with sister Mel. In agreement with plan. Worried she is not going to get to by 1pm but definitely plans to assist with ppwk at [facility]. [employer] [employer] passed this info along to Cynthia at . Cynthia asked for provider to note pt's stable H&H in dc summary. Provider in agreement. [facility] [employer] send copy of current labs to Cynthia at for review. [facility] [employer] met with pt in room. Pt more talkative today with this [employer] [employer]. report in agreement with dcp, unsure if he'll be able to get stronger but wants to try. Plan: pt to dc today to [facility] at 1pm. CM team will continue to follow closely. ARNOLDO Koch
== END 2023-07-11 13:08 | DRG 689 ==
LOC: ED 16:19 → AC 16:26
PROVIDERS: Admitting Provider Family Medicine; Emergency Provider Emergency Medicine; PCP Family Medicine; Referring Provider Emergency Medicine; Visit Provider Family Medicine
DX: N39.0 Urinary tract infection, site not specified (principal); E43 Unspecified severe protein-calorie malnutrition; G93.41 Metabolic encephalopathy; Z68.1 Body mass index [BMI] 19.9 or less, adult; R44.3 Hallucinations, unspecified; N13.9 Obstructive and reflux uropathy, unspecified; Z66 Do not resuscitate; Z86.73 Personal history of transient ischemic attack (TIA), and cerebral infarction without residual deficits
CPT/HCPCS: 36415; 51701; 51798; 71045; 80053; 81001; 83605; 83880; 84484; 85025; 85610; 87086; 96365; 97116; 97129; 97162; 97166; 97530; 97535; 99284; J0696; J1650

== ENCOUNTER → 2023-07-20 10:41 | Outpatient (ROUT) | payer MEDICARE, SELFPAY ==
[2023-07-06 17:28] VITALS: BMI 18.3
[2023-07-20 10:56] LABS: Appearance Urine UA CLEAR; Bilirubin Urine UA NEGATIVE (NEGATIVE); Color Urine UA YELLOW; Glucose Urine UA NEGATIVE (Negative); Ketones Urine UA NEGATIVE (NEGATIVE); Leukocyte Esterase Urine UA NEGATIVE (NEGATIVE); Nitrite Urine UA NEGATIVE (Negative); Occult Blood Urine UA 1+ (Negative); Protein Urine UA 1+ (Negative); Specific Gravity Urine UA 1.025 (1.000-1.035); Urobilinogen Urine UA 0.2 E.U./dL (0.2)
[2023-07-20 11:06] LABS: Bacteria Urine None Seen; Culture Indicated Urine Cult Not Indicated; RBC Urine 5-10/HPF (0-5/HPF); Squamous Epithelial Cell Urine None Seen (0-5/HPF); Urine Volume 10mL (spun); WBC Urine 1-5/HPF (0-5/HPF)
== END ==
PROVIDERS: PCP Family Medicine; Visit Provider Nurse Practitioner
DX: N39.0 Urinary tract infection, site not specified (principal)
CPT/HCPCS: 81001

== ENCOUNTER → 2023-08-17 07:06 | Outpatient (ROUT) | payer MEDICARE, SELFPAY ==
[2023-07-06 17:28] VITALS: BMI 18.3
[2023-08-17 08:35] LABS: Appearance Urine UA CLEAR; Bilirubin Urine UA NEGATIVE (NEGATIVE); Color Urine UA YELLOW; Glucose Urine UA NEGATIVE (Negative); Ketones Urine UA NEGATIVE (NEGATIVE); Leukocyte Esterase Urine UA 2+ (NEGATIVE); Nitrite Urine UA NEGATIVE (Negative); Occult Blood Urine UA 2+ (Negative); Protein Urine UA TRACE (Negative); Specific Gravity Urine UA 1.025 (1.000-1.035); Urobilinogen Urine UA 0.2 E.U./dL (0.2)
[2023-08-17 10:34] LABS: Bacteria Urine Occasional (0-1); Culture Indicated Urine Specimen Cultured; RBC Urine 10-30/HPF (0-5/HPF); Squamous Epithelial Cell Urine 0-1 /HPF (0-5/HPF); Urine Volume 10mL (spun); WBC Urine >100/HPF (0-5/HPF)
== END ==
PROVIDERS: PCP Family Medicine; Visit Provider Internal Medicine
DX: Z13.89 Encounter for screening for other disorder (principal)
CPT/HCPCS: 81001; 87077; 87086; 87186